=== PATIENT | female | born 1955 | race Caucasian/White ===

== ENCOUNTER 2021-10-07 18:50 | Inpatient (IN) ==
[2021-10-07] MEDS ORDERED: SODIUM CHLORIDE 0.9% 1000ML 1,000 ML IV STA (18:53)
[2021-10-07 19:11] LABS: Basophils # (auto) 0.04 K/uL (0-0.2); Basophils % (auto) 0.2 %; Eosinophils # (auto) 0.03 K/uL (0-0.50); Eosinophils % (auto) 0.2 %; Hematocrit (blood only) 23.4 % (34.1-44.9); Hemoglobin 7.9 g/dl (12.0-16.0); Immature Granulocytes # (auto) 0.14 K/uL (0.00-0.02); Immature Granulocytes % (auto) 0.9 %; Lymphocytes # (auto) 2.03 K/uL (1.2-3.4); Lymphocytes % (auto) 12.4 %; Mean Corpuscular Hemoglobin 30.2 pg (25.0-34.0); Mean Corpuscular Hgb Conc 33.8 g/dL (32.0-36.0); Mean Corpuscular Volume 89.3 fL (80.0-100.0); Mean Platelet Volume 10.3 fL (9.4-12.3); Monocytes # (auto) 0.99 K/uL (0.24-0.82); Neutrophils # (auto) 13.16 K/uL (1.4-6.5); Neutrophils % (auto) 80.3 %; Platelet Count 231 K/uL (130-400); RDW Standard Deviation 42.4 fL (36.4-46.3); Red Blood Count 2.62 M/uL (3.93-5.22); White Blood Count 16.39 K/ul (4.8-10.8)
--- NOTE | 2021-10-07 19:20 | Emergency Department Note ---
Impression & Plan Acute lower GI bleeding, Status post colonoscopy with polypectomy, Hypotension, Hypovolemic shock, Acute blood loss anemia ED Provider Note NAME: LUIZA PECK AGE: 66 SEX: F : 1955 ARRIVES VIA: Ambulance INFORMANT: Patient, EMS ED PROVIDER(S): Сергей Bob DO CHIEF COMPLAINT: GI bleeding HPI: The patient is a 66-year-old female who presented to the emergency department via ambulance for an evaluation of lower GI bleeding. The patient had a recent colonoscopy and removal of a polyp. She states that she started h aving lower GI bleeding this morning which progressed and worsened over the course of the last few hours. She is been passing clots. She is very dizzy and lightheaded and feels generalized weakness. She called her GI doctor and was referred to the emergency department for further evaluation. The patient states the bleeding has slowed down somewhat. She normally takes Coumadin because of a history of heart valve replacement. The patient states that she has been bridging with Lovenox and took the last dose of Lovenox as well as Coumadin this morning. She denies having any fever. She does complain of some pain. She denies having any nausea or vomiting. She denies having any chest pain. ROS: See above HPI for pertinent positives & negatives. A total of 10 systems reviewed and were otherwise negative. PAST MEDICAL HISTORY: See Below PAST SURGICAL HISTORY: See Below FAMILY HISTORY: See Below SOCIAL HISTORY: See Below HOME MEDICATIONS: See Below ALLERGIES: See Below VITALS: See Below PHYSICAL EXAMINATION: GENERAL: The patient is awake and alert. She appears very anxious. EYES: The conjunctivae are pale. The pupils are round and reactive. EARS, NOSE, MOUTH AND THROAT: The nose is without any evidence of any deformity. Mucous membranes are moist. Tongue is midline. NECK: The neck is nontender and supple. RESPIRATORY: Normal respiratory effort is noted there is no evidence of wheezing rhonchi or rales CARDIOVASCULAR: Regular rate and rhythm noted there no murmurs rubs or gallops normal S1 normal S2. GASTROINTESTINAL: Abdomen is soft and nondistended. There is no specific guarding or rigidity appreciated. MUSCULOSKELETAL/EXTREMITIES: There is no evidence of gross deformity full range of motion is noted in the hips and shoulders. SKIN: Trace pedal edema was noted bilaterally. Skin was cool and dry. NEUROLOGIC: Patient is awake alert and oriented x3. MEDICAL DECISION MAKING: The patient is a 66-year-old female who presented to the emergency department for evaluation of lower GI bleeding. The patient had a recent polypectomy. He does take oral anticoagulation for a history of valve replacement. The patient states that she restarted her Coumadin on the morning of presentation. The patient presented to the emergency department with hypotension after having multiple bowel movements with blood and clots. The patient's abdominal exam was not consistent with an acute abdomen. Patient was treated initially with IV fluids but then she was treated with blood products including fresh frozen plasma and packed red blood cells. Patient continued to have hypotension. A central line was placed for further aggressive resuscitation. I discussed patient's laboratory and radiographic studies with her. I also discussed her case with the on-call [facility] hospitalist. They have agreed to evaluate patient in the emergency department for further management and disposition. The patient was felt to be a candidate for ICU admission. The patient was reevaluated multiple times. Triage Nursing notes reviewed. Prior medical records reviewed Vital Signs: reviewed and remarkable for hypotension and tachycardia. Differential diagnosis: Diverticulosis, AVM, coagulopathy, colitis, inflammatory bowel disease, malignancy, Marita-Palacios tear, esophagitis, peptic ulcer disease, variceal bleed, gastritis, epistaxis, fissure, hemorrhoids, as well as other pathologies. ER treatment provided: See below Diagnostics interpreted by me: ECG: EKG was obtained in the emergency department. My interpretation is sinus rhythm at 83 bpm. There is no ectopy. Nonspecific ST segment abnormalities were noted. No previous tracing was available. Cardiac Monitoring: An order was placed for continuous cardiac monitoring. The monitor shows a rate of 105 bpm with sinus tachycardia. Laboratory studies: As stated above and show below. Imaging studies: See below Consultation(s): I discussed this case with Dr Bryant ED COURSE: Procedures: Femoral Central Venous Catheter Indication: Hemorrhagic shock Catheter Type: Triple-lumen Location: Right femoral vein Verbal consent was obtained after the risks and benefits were explained, including but not limited to intra-abdominal injury, vessel injury, bleeding, scarring, infection, pain, and bone/joint/nerve damage. At this time, the risks of the procedure are less than the risks of NOT performing the procedure. A time out was taken and the correct patient and site identified. The patient was placed in the supine position and the skin was prepped in the standard fashion with chlorhexidine and full sterile drapes applied. The proper landmarks were identified with ultrasound, anesthetized with 1% lidocaine without epinephrine, and the needle was inserted through the skin in the standard fashion. The needle was carefully advanced into blood vessel lumen with ultrasound guidance. The guidewire was placed uneventfully. The vessel is dilated and the catheter was placed. It was sutured into position. There was good blood return from all ports. The patient tolerated the procedure well and there were no complications. PDMP:reviewed and no issues Critical Care: I have personally spent greater than 65 minutes of critical care time in the direct management of this patient. This includes bedside care, interpretation of diagnostic studies, and testing, discussion with consultants, patient, and family members, and other required patient management activities. This 65 minutes is in excess of all separately billable procedures. Past Med/Surg History Medical History Hypertension Surgical History Heart valve replaced Social History Smoking Status: Never smoker Second Hand Exposure: No; Do You Dip or Chew Tobacco: No; Tobacco Cessation Education Requested by Patient: No Hx Alcohol Use: No Hx Substance Use: No Preferred Language: Armenian Communication Ability: Effective Farm Specialist Required: No Beliefs That Will Affect Care: None Current Living Situation: Spouse Other Information That Helps Us Care for You: No Feels Safe at Home: Yes Safety Concerns: Afraid for Self Allergies Allergies Allergy/AdvReac Type Severity Reaction Status Date / Time Sulfa (Sulfonamide Allergy Verified 12/02/20 10:51 Antibiotics) Home Meds Home Medications Medication Instructions Recorded Confirmed aspirin 81 mg tablet,delayed 81 mg PO DAILY 12/02/20 10/07/21 release (Adult Low Dose Aspirin) cholecalciferol (vitamin D3) 50 2,000 unit PO DAILY 10/07/21 10/07/21 mcg (2,000 unit) tablet (Vitamin D3) enoxaparin 60 mg/0.6 mL 60 mg subcut BID 10/07/21 10/07/21 subcutaneous syringe metoprolol tartrate 25 mg tablet 12.5 mg PO BID 10/07/21 10/07/21 multivitamin 1 tab PO DAILY 10/07/21 10/07/21 rosuvastatin 20 mg tablet 20 mg PO DAILY 10/07/21 10/07/21 warfarin 2.5 mg tablet 2.5 mg PO Q2D 10/07/21 10/07/21 warfarin 5 mg tablet 5 mg PO Q2D 10/07/21 10/07/21 Results & Data (ED) Vital Signs Vital Signs - 24 hr 10/07/21 18:52 10/07/21 18:53 10/07/21 19:09 Pulse Rate 88 88 91 H Pulse Rate from SpO2 Sensor Pulse Rhythm Regular Pulse Strength Normal Respiratory Rate 19 21 Respiratory Effort / Characteristics Non-Labored Spontaneous Respiratory Depth Normal Respiratory Pattern Regular Blood Pressure 93/59 L 100/59 L Blood Pressure Mean 70 72 Blood Pressure Position Lying Pulse Oximetry 98 98 98 Oxygen Delivery Method Room Air Room Air Sepsis Recent Fever Within 48 Hours No Sepsis New/Unexplained Change in Mental Status N/A Sepsis Action Taken by Nursing No Action Required 10/07/21 19:16 10/07/21 19:30 10/07/21 19:46 Pulse Rate 85 83 82 Pulse Rate from SpO2 Sensor Pulse Rhythm Pulse Strength Respiratory Rate 17 14 14 Respiratory Effort / Characteristics Respiratory Depth Respiratory Pattern Blood Pressure 81/57 L 93/54 L 110/67 Blood Pressure Mean 65 67 81 Blood Pressure Position Pulse Oximetry 97 100 100 Oxygen Delivery Method Sepsis Recent Fever Within 48 Hours Sepsis New/Unexplained Change in Mental Status Sepsis Action Taken by Nursing 10/07/21 19:54 10/07/21 20:11 10/07/21 20:11 Pulse Rate 97 H 80 Pulse Rate from SpO2 Sensor Pulse Rhythm Pulse Strength Respiratory Rate 16 23 Respiratory Effort / Characteristics Respiratory Depth Respiratory Pattern Blood Pressure 90/72 L 56/37 L Blood Pressure Mean 78 43 Blood Pressure Position Pulse Oximetry 84 L Oxygen Delivery Method Sepsis Recent Fever Within 48 Hours Sepsis New/Unexplained Change in Mental Status Sepsis Action Taken by Nursing 10/07/21 20:15 10/07/21 20:15 10/07/21 20:23 Pulse Rate 81 Pulse Rate from SpO2 Sensor 81 Pulse Rhythm Pulse Strength Respiratory Rate 20 Respiratory Effort / Characteristics Respiratory Depth Respiratory Pattern Blood Pressure 59/37 L 67/38 L Blood Pressure Mean 44 47 Blood Pressure Position Pulse Oximetry 100 Oxygen Delivery Method Sepsis Recent Fever Within 48 Hours Sepsis New/Unexplained Change in Mental Status Sepsis Action Taken by Nursing 10/07/21 20:23 Pulse Rate 83 Pulse Rate from SpO2 Sensor 83 Pulse Rhythm Pulse Strength Respiratory Rate 14 Respiratory Effort / Characteristics Respiratory Depth Respiratory Pattern Blood Pressure Blood Pressure Mean Blood Pressure Position Pulse Oximetry 98 Oxygen Delivery Method Sepsis Recent Fever Within 48 Hours Sepsis New/Unexplained Change in Mental Status Sepsis Action Taken by Care Home Medications Current Medication List: was personally reviewed by me Laboratory Data Attestation: I reviewed the patient's lab results. Result diagrams: 10/08/21 00:51 10/08/21 00:51 Lab Results 10/07/21 10/07/21 10/07/21 Range/Units 19:00 19:00 19:00 WBC 16.39 H (4.8-10.8) K/ul RBC 2.62 L (3.93-5.22) M/uL Hgb 7.9 L (12.0-16.0) g/dl POC Hgb (12.0-16.0) g/dl Hct 23.4 L (34.1-44.9) % POC Hct (37-47) % MCV 89.3 (80.0-100.0) fL MCH 30.2 (25.0-34.0) pg MCHC 33.8 (32.0-36.0) g/dL RDW Std Deviation 42.4 (36.4-46.3) fL RDW Coeff of Kristy 13.0 (11.5-14.5) % Plt Count 231 (130-400) K/uL MPV 10.3 (9.4-12.3) fL Immature Gran % (Auto) 0.9 % Neut % (Auto) 80.3 % Lymph % (Auto) 12.4 % [place] % (Auto) 6.0 % Eos % (Auto) 0.2 % Baso % (Auto) 0.2 % Neut # (Auto) 13.16 H (1.4-6.5) K/uL Lymph # (Auto) 2.03 (1.2-3.4) K/uL [place] # (Auto) 0.99 H (0.24-0.82) K/uL Eos # (Auto) 0.03 (0-0.50) K/uL Baso # (Auto) 0.04 (0-0.2) K/uL Immature Gran # (Auto) 0.14 H (0.00-0.02) K/uL Ovalocytes 1+ PT 13.1 H (9.0-12.0) Seconds INR 1.2 H (0.9-1.1) APTT 28.9 (21.0-31.0) Seconds PTT Ratio 1.1 POC Sodium (135-144) mmol/L Sodium 133 L (136-145) mmol/L POC Potassium (3.3-5.0) mmol/L Potassium 3.4 L (3.5-5.1) mmol/L POC Chloride (101-112) mmol/L Chloride 103 (98-107) mmol/L Carbon Dioxide 21 (21-32) mmol/L POC Total CO2 (24-31) mmol/L Anion Gap 9 (3-11) POC Anion Gap (16-25) mmol/L POC BUN (7-18) mg/dl BUN 12 (6-23) mg/dl Creatinine 0.69 (0.6-1.2) mg/dl POC Creatinine (0.6-1.3) mg/dl Est Cr Clr Drug Dosing 83.2 ml/min Est GFR ( Amer) 106.6 ml/min Est GFR (Non-Af Amer) 92.0 ml/min BUN/Creatinine Ratio 17.4 (10-20) Glucose 180 H (70-99(Fasting)) mg/dl POC Glucose (other) (70-99) mg/dl Calcium 7.9 L (8.5-10.1) mg/dl POC Ioniz Calcium Emy (1.12-1.32) mmol/l Magnesium 1.6 L (1.7-2.4) mg/dl Total Bilirubin 0.4 (0.2-1.0) mg/dl AST 20 (13-39) U/L ALT 18 (7-52) U/L Alkaline Phosphatase 43 (34-104) U/L Troponin I High Sens 4.4 (0-14) pg/ml Total Protein 5.0 L (6.0-8.3) gm/dl Albumin 3.1 L (3.4-5.0) gm/dl Globulin 1.9 L (2.5-4.0) gm/dl Albumin/Globulin Ratio 1.6 (0.9-2) Lipase 27 (11-82) U/L SARS-CoV-2, RNA, NAAT (NEGATIVE) Blood Type Blood Type Recheck Antibody Screen Crossmatch 10/07/21 10/07/21 10/07/21 Range/Units 19:03 19:06 19:08 WBC (4.8-10.8) K/ul RBC (3.93-5.22) M/uL Hgb (12.0-16.0) g/dl POC Hgb 8.5 L (12.0-16.0) g/dl Hct (34.1-44.9) % POC Hct 25 L (37-47) % MCV (80.0-100.0) fL MCH (25.0-34.0) pg MCHC (32.0-36.0) g/dL RDW Std Deviation (36.4-46.3) fL RDW Coeff of Kristy (11.5-14.5) % Plt Count (130-400) K/uL MPV (9.4-12.3) fL Immature Gran % (Auto) % Neut % (Auto) % Lymph % (Auto) % [place] % (Auto) % Eos % (Auto) % Baso % (Auto) % Neut # (Auto) (1.4-6.5) K/uL Lymph # (Auto) (1.2-3.4) K/uL [place] # (Auto) (0.24-0.82) K/uL Eos # (Auto) (0-0.50) K/uL Baso # (Auto) (0-0.2) K/uL Immature Gran # (Auto) (0.00-0.02) K/uL Ovalocytes PT (9.0-12.0) Seconds INR (0.9-1.1) APTT (21.0-31.0) Seconds PTT Ratio POC Sodium 134 L (135-144) mmol/L Sodium (136-145) mmol/L POC Potassium 3.3 (3.3-5.0) mmol/L Potassium (3.5-5.1) mmol/L POC Chloride 99 L (101-112) mmol/L Chloride (98-107) mmol/L Carbon Dioxide (21-32) mmol/L POC Total CO2 20 L (24-31) mmol/L Anion Gap (3-11) POC Anion Gap 19.0 (16-25) mmol/L POC BUN 9 (7-18) mg/dl BUN (6-23) mg/dl Creatinine (0.6-1.2) mg/dl POC Creatinine 0.7 (0.6-1.3) mg/dl Est Cr Clr Drug Dosing ml/min Est GFR ( Amer) ml/min Est GFR (Non-Af Amer) ml/min BUN/Creatinine Ratio (10-20) Glucose (70-99(Fasting)) mg/dl POC Glucose (other) 184 H (70-99) mg/dl Calcium (8.5-10.1) mg/dl POC Ioniz Calcium Emy 1.13 (1.12-1.32) mmol/l Magnesium (1.7-2.4) mg/dl Total Bilirubin (0.2-1.0) mg/dl AST (13-39) U/L ALT (7-52) U/L Alkaline Phosphatase (34-104) U/L Troponin I High Sens (0-14) pg/ml Total Protein (6.0-8.3) gm/dl Albumin (3.4-5.0) gm/dl Globulin (2.5-4.0) gm/dl Albumin/Globulin Ratio (0.9-2) Lipase (11-82) U/L SARS-CoV-2, RNA, NAAT NEGATIVE (NEGATIVE) Blood Type B Positive Blood Type Recheck Antibody Screen NEGATIVE Crossmatch See Detail 10/07/21 Range/Units 20:05 WBC (4.8-10.8) K/ul RBC (3.93-5.22) M/uL Hgb (12.0-16.0) g/dl POC Hgb (12.0-16.0) g/dl Hct (34.1-44.9) % POC Hct (37-47) % MCV (80.0-100.0) fL MCH (25.0-34.0) pg MCHC (32.0-36.0) g/dL RDW Std Deviation (36.4-46.3) fL RDW Coeff of Kristy (11.5-14.5) % Plt Count (130-400) K/uL MPV (9.4-12.3) fL Immature Gran % (Auto) % Neut % (Auto) % Lymph % (Auto) % [place] % (Auto) % Eos % (Auto) % Baso % (Auto) % Neut # (Auto) (1.4-6.5) K/uL Lymph # (Auto) (1.2-3.4) K/uL [place] # (Auto) (0.24-0.82) K/uL Eos # (Auto) (0-0.50) K/uL Baso # (Auto) (0-0.2) K/uL Immature Gran # (Auto) (0.00-0.02) K/uL Ovalocytes PT (9.0-12.0) Seconds INR (0.9-1.1) APTT (21.0-31.0) Seconds PTT Ratio POC Sodium (135-144) mmol/L Sodium (136-145) mmol/L POC Potassium (3.3-5.0) mmol/L Potassium (3.5-5.1) mmol/L POC Chloride (101-112) mmol/L Chloride (98-107) mmol/L Carbon Dioxide (21-32) mmol/L POC Total CO2 (24-31) mmol/L Anion Gap (3-11) POC Anion Gap (16-25) mmol/L POC BUN (7-18) mg/dl BUN (6-23) mg/dl Creatinine (0.6-1.2) mg/dl POC Creatinine (0.6-1.3) mg/dl Est Cr Clr Drug Dosing ml/min Est GFR ( Amer) ml/min Est GFR (Non-Af Amer) ml/min BUN/Creatinine Ratio (10-20) Glucose (70-99(Fasting)) mg/dl POC Glucose (other) (70-99) mg/dl Calcium (8.5-10.1) mg/dl POC Ioniz Calcium Emy (1.12-1.32) mmol/l Magnesium (1.7-2.4) mg/dl Total Bilirubin (0.2-1.0) mg/dl AST (13-39) U/L ALT (7-52) U/L Alkaline Phosphatase (34-104) U/L Troponin I High Sens (0-14) pg/ml Total Protein (6.0-8.3) gm/dl Albumin (3.4-5.0) gm/dl Globulin (2.5-4.0) gm/dl Albumin/Globulin Ratio (0.9-2) Lipase (11-82) U/L SARS-CoV-2, RNA, NAAT (NEGATIVE) Blood Type Blood Type Recheck B Positive Antibody Screen Crossmatch Administered Medications Discontinued Medications Calcium Chloride (Calcium Chloride 10% 10 Ml Syr) Confirm Administered Dose 1,000 mg IV .STK-MED ONE Stop: 10/08/21 02:09 Last Admin: 10/08/21 02:29 Dose: Not Given Documented By: ISSA Sodium Chloride (Nss 1000ml) 1,000 mls @ 999 mls/hr IV .Q1H1M STA Stop: 10/07/21 19:53 Last Infusion: 10/07/21 20:08 Dose: 0 mls/hr Documented By: Admin: 10/07/21 19:06 Dose: 999 mls/hr Documented By: MARIE Sodium Chloride (Nss 1000ml) 1,000 mls @ 999 mls/hr IV .Q1H1M ONE Stop: 10/07/21 21:18 Last Infusion: 10/07/21 21:21 Dose: 0 mls/hr Documented By: Admin: 10/07/21 20:20 Dose: 999 mls/hr Documented By: PAPITO Pantoprazole Sodium 40 mg/ (Syringe) 10 mls @ 5 mls/min IV NOW ONE Stop: 10/07/21 21:01 Last Admin: 10/07/21 22:12 Dose: 5 mls/min Documented By: PAPITO Pantoprazole Sodium 40 mg/ (Dextrose) 100 mls @ 20 mls/hr IV Q5H ADRIANA Stop: 11/06/21 20:59 Last Infusion: 10/08/21 02:30 Dose: 0 mg/hr, 0 mls/hr Documented By: Admin: 10/07/21 21:30 Dose: 8 mg/hr, 20 mls/hr Documented By: ISSA Potassium Chloride (K Zach / Wtr) 10 meq in 100 mls @ 100 mls/hr IV Q1H ADRIANA; Protocol Stop: 10/07/21 22:59 Last Admin: 10/08/21 00:26 Dose: Not Given Documented By: Admin: 10/08/21 00:25 Dose: Not Given Documented By: ISSA Promethazine HCl 12.5 mg/ (Sodium Chloride) 50.5 mls @ 202 mls/hr IV Q6H PRN PRN Reason: Nausea And Vomiting Stop: 11/06/21 21:14 Last Infusion: 10/07/21 21:45 Dose: 0 mls/hr Documented By: Admin: 10/07/21 21:30 Dose: 202 mls/hr Documented By: VK Lactated Ringer's (Lr) 1,000 mls @ 500 mls/hr IV .Q2H ONE Stop: 10/07/21 23:22 Last Infusion: 10/08/21 01:27 Dose: 0 mls/hr Documented By: Admin: 10/07/21 23:27 Dose: 500 mls/hr Documented By: VK Parenteral Electrolytes (Normosol-R) 1,000 mls @ 999 mls/hr IV .Q1H1M ONE Stop: 10/08/21 01:20 Last Infusion: 10/08/21 01:47 Dose: 0 mls/hr Documented By: Admin: 10/08/21 00:46 Dose: 999 mls/hr Documented By: JOSE Potassium Chloride (K Zach / Wtr) 10 meq in 100 mls @ 100 mls/hr IV Q1H ADRIANA Stop: 10/08/21 02:20 Last Admin: 10/08/21 02:45 Dose: Not Given Documented By: Admin: 10/08/21 02:43 Dose: Not Given Documented By: VK Albumin Human (Albumin 5%) 250 mls @ 500 mls/hr IV ONE ONE Stop: 10/08/21 01:02 Last Infusion: 10/08/21 01:12 Dose: 0 mls/hr Documented By: Admin: 10/08/21 00:42 Dose: 500 mls/hr Documented By: JOSE Lactated Ringer's (Lr) 1,000 mls @ 250 mls/hr IV .Q4H ADRIANA Stop: 11/07/21 01:29 Last Admin: 10/08/21 00:47 Dose: 250 mls/hr Documented By: JOSE Norepinephrine Bitartrate (Levophed/D5w) 4 mg in 250 mls @ 13.969 mls/hr IV .[id number] ADRIANA; Protocol Stop: 11/07/21 00:44 Last Admin: 10/08/21 00:46 Dose: 0.05 mcg/kg/min, 14 mls/hr Documented By: JOSE Co-signed By: REILLY Phytonadione 5 mg/ Dextrose 50.5 mls @ 101 mls/hr IV ONE ONE Stop: 10/08/21 01:11 Last Infusion: 10/08/21 01:12 Dose: 0 mls/hr Documented By: Admin: 10/08/21 00:42 Dose: 101 mls/hr Documented By: ISSA Albumin Human (Albumin 5%) 250 mls @ 500 mls/hr IV ONE ONE Stop: 10/08/21 01:41 Last Infusion: 10/08/21 02:00 Dose: 0 mls/hr Documented By: Admin: 10/08/21 01:30 Dose: 500 mls/hr Documented By: ISSA Calcium Chloride 1,000 mg/ (Dextrose) 60 mls @ 240 mls/hr IV NOW STA Stop: 10/08/21 02:20 Last Infusion: 10/08/21 02:44 Dose: 0 mls/hr Documented By: Admin: 10/08/21 02:29 Dose: 240 mls/hr Documented By: ISSA Norepinephrine Bitartrate (Norepinephrine/D5w 4 Mg/250 Ml) Confirm Administered Dose 4 mg IV .STK-MED ONE Stop: 10/08/21 00:33 Last Admin: 10/08/21 00:40 Dose: 4 mg Documented By: JOSE Ondansetron HCl (Ondansetron Inj 2 Mg/Ml 2 Ml Vial) 4 mg IV NOW STA Stop: 10/07/21 19:54 Last Admin: 10/07/21 19:57 Dose: 4 mg Documented By: OA Imaging Data Radiologist's Impression: Chest X-Ray 10/07/21 18:53 XR chest 1V portable CLINICAL HISTORY: Atypical chest pain. COMPARISON STUDY: No previous studies for comparison. FINDINGS: There are median sternotomy wires. S-shaped scoliosis of the thoracolumbar spine is partially imaged. Lung volumes are normal. Lungs are clear. There is no pneumothorax or pleural effusion. Cardiac size is normal. Mediastinal contours are normal. There is no evidence for pulmonary edema. IMPRESSION: No acute cardiopulmonary findings. ACT 112: Negative or not required by law. Electronically signed by: Milton Lemon M.D. 10/07/2021 7:29 PM KUB X-Ray 10/07/21 18:53 KUB CLINICAL HISTORY: GI bleed. COMPARISON STUDY: None. FINDINGS: There is a paucity of bowel gas. Although a nonspecific pattern, no convincing evidence for a bowel obstruction. No urinary calculi identified. No free air was identified on upright chest radiograph. IMPRESSION: Paucity of bowel gas but no convincing evidence for a bowel obstruction. ACT 112: Negative or not required by law. Electronically signed by: Milton Lemon M.D. 10/07/2021 7:30 PM Discharge Plan Visit Data Chief Complaint: Weakness ED Provider: Сергей Bob Discharge Problem: Acute lower GI bleeding, Status post colonoscopy with polypectomy, Hypotension, Hypovolemic shock, Acute blood loss anemia Patient Disposition: Admitted As Inpatient Discharge Instructions Interventions: ED Discharge Assessment Last Done: 10/07/21 21:33 : Hypotension Qualifiers: Hypotension type: unspecified hypotension type Qualified Code(s): I95.9 - Hypotension, unspecified
[2021-10-07 19:24] LABS: INR 1.2 (0.9-1.1); Partial Thromboplastin Ratio 1.1; Partial Thromboplastin Time 28.9 Seconds (21.0-31.0); Prothrombin Time 13.1 Seconds (9.0-12.0)
[2021-10-07 19:24] LABS: iSTAT Creatinine 0.7 mg/dl (0.6-1.3); iSTAT Hemoglobin 8.5 g/dl (12.0-16.0); iSTAT Ionized Calcium 1.13 mmol/l (1.12-1.32); iSTAT Potassium 3.3 mmol/L (3.3-5.0)
[2021-10-07 19:29] LABS: Ovalocytes 1+
--- NOTE | 2021-10-07 19:30 | XRay Report ---
XR chest 1V portable CLINICAL HISTORY: Atypical chest pain. COMPARISON STUDY: No previous studies for comparison. FINDINGS: There are median sternotomy wires. S-shaped scoliosis of the thoracolumbar spine is partial ly imaged. Lung volumes are normal. Lungs are clear. There is no pneumothorax or pleural effusion. Ca rdiac size is normal. Mediastinal contours are normal. There is no evidence for pulmonary edema. IMPRESSION: No acute cardiopulmonary findings. ACT 112: Negative or not required by law. Electronically signed by: Milton Lemon M.D. 10/07/2021 7:29 PM
--- NOTE | 2021-10-07 19:31 | XRay Report ---
KUB CLINICAL HISTORY: GI bleed. COMPARISON STUDY: None. FINDINGS: There is a paucity of bowel gas. Although a nonspecific pattern, no convincing evidence for a bowel obstruction. No urinary calculi identified. No free air was identified on upright chest radi ograph. IMPRESSION: Paucity of bowel gas but no convincing evidence for a bowel obstruction. ACT 112: Negative or not required by law. Electronically signed by: Milton Lemon M.D. 10/07/2021 7:30 PM
[2021-10-07] MEDS ORDERED: SODIUM CHLORIDE 0.9% 250 ML IV PRN ×2 (19:38→20:58)
[2021-10-07 19:39] LABS: Troponin I High Sensitivity 4.4 pg/ml (0-14)
[2021-10-07 19:40] LABS: Albumin Globulin Ratio 1.6 (0.9-2); Albumin Level 3.1 gm/dl (3.4-5.0); BUN Creatinine Ratio 17.4 (10-20); Bilirubin,Total 0.4 mg/dl (0.2-1.0); Calcium 7.9 mg/dl (8.5-10.1); Creatinine Clr Calc Pharmacy 83.2 ml/min; Est GFR (African American) 106.6 ml/min; Globulin 1.9 gm/dl (2.5-4.0); Potassium 3.4 mmol/L (3.5-5.1)
[2021-10-07] MEDS ORDERED: ONDANSETRON INJ 2 MG/ML 2 ML VIAL IV STA (19:53)
[2021-10-07] MEDS ORDERED: SODIUM CHLORIDE 0.9% 1000ML 1,000 ML IV ONE (20:18)
--- NOTE | 2021-10-07 20:47 | History & Physical Report ---
Date of Service October 07, 2021 Assessment & Plan (1) Bright red rectal bleeding: Plan: Status post colonoscopy with removal of 2 polyps on 10/06/2021 A 40 mm polyp in ascending colon and 8 mm in descending colon Received Lovenox 60 mg subcu yesterday and has been off Coumadin Bright red rectal bleeding 3-4 episodes with hypotension Will start intravenous Protonix drip Hemoglobin 7.9 Give 2 units of blood transfusion And type and hold 2 more unit GI service will be consulted-D/W vocational rehabilitation technician psycian H&H every 4 hours (2) Hypotension: Plan: Likely secondary to blood loss Has been receiving bolus of normal saline Will start blood transfusion as soon as available We will monitor the patient in telemetry unit (3) Status post colonoscopy with polypectomy: Plan: As above (4) S/P aortic valve replacement: Plan: History of aortic valve replacement with mechanical valve due to bicuspid aortic valve Has been on Coumadin Recently bridged with Lovenox for colonoscopy Received Lovenox last evening Hypertension Has hypotension right now Hold any beta-leonora or blood pressure medicine Hyperlipidemia Hold any statin DVT prophylaxis SCDs CODE STATUS Full History of Present Illness Chief Complaint: Bright red rectal bleed with nausea and vomiting since around 1 PM today Primary Care Provider: Ramakrishna Correa PA-C She is a 66-year-old female with significant past medical history of mechanical aortic valve replacement for bicuspid aortic valve and has been on Coumadin and aspirin. She underwent colonoscopy with removal of 2 polyps yesterday. She was feeling epigastric discomfort around 1 PM and started to have nausea and vomiting quite a few times. She has had bloody bowel movement about 3 times since then and she has been pale following that and feeling very dizzy and unsteady on feet. She denies any chest pain and/or palpitation or any shortness of breath. She did not have any abdominal distention and no fever and or chills. She was noted to be hypotensive in the emergency room with a hemoglobin of 7.9. She will be admitted to telemetry unit and she will have blood transfusion as soon as it is available. Allergies Allergy/AdvReac Type Severity Reaction Status Date / Time Sulfa (Sulfonamide Allergy Verified 12/02/20 10:51 Antibiotics) Home Medications Medication Instructions Recorded Confirmed Type aspirin 81 mg tablet,delayed 81 mg PO DAILY 12/02/20 10/07/21 History release (Adult Low Dose Aspirin) cholecalciferol (vitamin D3) 50 2,000 unit PO DAILY 10/07/21 10/07/21 History mcg (2,000 unit) tablet (Vitamin D3) enoxaparin 60 mg/0.6 mL 60 mg subcut BID 10/07/21 10/07/21 History subcutaneous syringe metoprolol tartrate 25 mg tablet 12.5 mg PO BID 10/07/21 10/07/21 History multivitamin 1 tab PO DAILY 10/07/21 10/07/21 History rosuvastatin 20 mg tablet 20 mg PO DAILY 10/07/21 10/07/21 History warfarin 2.5 mg tablet 2.5 mg PO Q2D 10/07/21 10/07/21 History warfarin 5 mg tablet 5 mg PO Q2D 10/07/21 10/07/21 History Past Med/Surg History Medical History Hypertension Surgical History Heart valve replaced Social History Smoking Status: Never smoker Preferred Language: Icelandic Feels Safe at Home: Yes Review of Systems Review of Systems: All systems reviewed and are unremarkable except as noted below Gastrointestinal: Epigastric discomfort with nausea and vomiting. Bright red blood per rectum Neurologic: Generally weak and lethargic and dizzy with standing and movement Physical Exam Physical Exam: Lying in bed very pale without any other acute distress Constitutional: well developed, well nourished, + ill appearing and + obese Eyes: PERRL, conjunctivae normal, anicteric sclerae ENMT: external ear and nose normal, oropharynx normal Respiratory: no respiratory distress Auscultation: lungs clear to auscultation bilaterally Cardiovascular: Rate/Rhythm: regular rate and regular rhythm; not tachycardic Heart Sounds: normal S1, normal S2 and + murmur (2/6 ESM over precordium) Extremities: + edema (Trace edema bilaterally) Gastrointestinal (Abdomen): Inspection/Auscultation: normal bowel sounds; abdomen not distended Percussion/Palpation: + abdomen tender (Minimally tender in the epigastrium) and abdomen soft Musculoskeletal: No acute arthritis in any joint Neurologic: Alert and awake . Very lethargic Results & Data Results & Data ([facility]) Vital Signs (Past 12 Hours) Vital Signs Pulse Resp BP Pulse Ox O2 Del Method 10/07/21 20:28 80 14 67/38 L 100 10/07/21 19:54 97 H 16 90/72 L 10/07/21 19:46 82 14 110/67 100 10/07/21 19:30 83 14 93/54 L 100 10/07/21 19:16 85 17 81/57 L 97 10/07/21 19:09 91 H 21 100/59 L 98 10/07/21 18:53 88 98 Room Air 10/07/21 18:52 88 19 93/59 L 98 Room Air Laboratory Results Short CBC 10/07/21 Range/Units 19:00 WBC 16.39 H (4.8-10.8) K/ul Hgb 7.9 L (12.0-16.0) g/dl Hct 23.4 L (34.1-44.9) % Plt Count 231 (130-400) K/uL BMP 10/07/21 19:00 Sodium 133 L Potassium 3.4 L Chloride 103 Carbon Dioxide 21 BUN 12 Creatinine 0.69 Glucose 180 H Calcium 7.9 L Liver Function 10/07/21 Range/Units 19:00 Total Bilirubin 0.4 (0.2-1.0) mg/dl AST 20 (13-39) U/L ALT 18 (7-52) U/L Alkaline Phosphatase 43 (34-104) U/L Albumin 3.1 L (3.4-5.0) gm/dl Medications Administered Current Inpatient Medications Sodium Chloride (Nss) 250 mls @ 15 mls/hr IV .[id number] PRN PRN Reason: For Transfusion Stop: 10/08/21 05:38 Sodium Chloride (Nss 1000ml) 1,000 mls @ 999 mls/hr IV .[id number] ONE Stop: 10/07/21 21:18 Last Admin: 10/07/21 20:20 Dose: 999 mls/hr Code Status & VTE Plan VTE Prophylaxis Plan VTE Prophylaxis will be ordered: Yes
[2021-10-07 20:58] LABS: Magnesium 1.6 mg/dl (1.7-2.4)
[2021-10-07] MEDS ORDERED: PANTOprazole 40 MG in DEXTROSE 5% 100 ML IV SCH (21:00)
[2021-10-07] MEDS ORDERED: PANTOprazole 40 MG in SYRINGE 0 ML IV ONE (21:00)
[2021-10-07] MEDS ORDERED: ONDANSETRON INJ 2 MG/ML 2 ML VIAL IV PRN ×2 (21:13→23:14)
[2021-10-07] MEDS ORDERED: PROMETHAZINE HCL 12.5 MG in SODIUM CHLORIDE 0.9% 50 ML IV PRN (21:15)
[2021-10-07] MEDS ORDERED: LACTATED RINGER'S 1,000 ML IV ONE (21:23)
[2021-10-07 22:12] LABS: Hematocrit (blood only) 28.7 % (34.1-44.9); Hemoglobin 9.4 g/dl (12.0-16.0)
[2021-10-07] MEDS ORDERED: ACETAMINOPHEN 325 MG TAB PO PRN (23:14)
[2021-10-07] MEDS ORDERED: POTASSIUM CHLORIDE CRTAB 20 MEQ TABCR PO STA (23:32)
[2021-10-08] MEDS ORDERED: NORMOSOL-R 1,000 ML IV ONE (00:20)
[2021-10-08] MEDS: POTASSIUM CHLORIDE / WTR 10 MEQ/100 ML PLCT IV SCH ×4 (00:25→02:45)
[2021-10-08] MEDS ORDERED: NOREPINEPHRINE/D5W 4 MG/250 ML IV ONE (00:32)
[2021-10-08] MEDS ORDERED: ALBUMIN 5% 250 ML IV ONE ×2 (00:33→01:12)
[2021-10-08] MEDS ORDERED: SODIUM CHLORIDE 0.9% 250 ML IV PRN (00:34)
--- NOTE | 2021-10-08 00:34 | Communication Note ---
Date of Service: October 08, 2021 0020 AM Notified by RN of patient SBP 50s. Sp post 3 units PRBC transfusion Patient lethargic. Still with LGIB soaking sheets. 10/07 labs Hemoglobin 9.4 from 7.9 Lactic acid 5.4 AP Hypovolemic/hemorrhagic shock secondary to GI bleed ICU transfer for pressor support Continue IVF resuscitation and as needed transfusion Dr. Juan later on updated by ICU provider of developments. [facility] transfer for further management recommended. Patient kindly accepted for transfer by Dr. Tanmay Reid ([facility] microbiology teacher on- call).
[2021-10-08] MEDS ORDERED: STAT IV Infusion **Titration per Protocol STA (00:36)
[2021-10-08] MEDS ORDERED: ICU PROTOCOL FOR HYPERGLYCEMIA PRN (00:39)
[2021-10-08] MEDS ORDERED: PHYTONADIONE 5 MG in DEXTROSE 5% 50 ML IV ONE (00:42)
[2021-10-08] MEDS ORDERED: NOREPINEPHRINE/D5W 4 MG/250 ML PLCT IV SCH (00:45)
[2021-10-08] MEDS ORDERED: LACTATED RINGER'S 1,000 ML IV ONE (01:00)
--- NOTE | 2021-10-08 01:28 | Critical Care Consultation ---
Date of Consultation October 08, 2021 Assessment & Plan (1) Hypovolemic shock: Reason Critically Ill: 66-year-old female presents to the ICU with hypovolemic shock secondary to acute lower GI bleed, requiring massive transfusion and vasopressor support. Neuro - [facility] ICU: Negative Cardiac - Hypovolemic shocksecondary to GI bleed. Continue with transfusions as described below. Continue with volume support. Levophed drip for maps greater than 65. Hold antihypertensives. Hold further anticoagulation. Continue monitoring in ICU pending transfer. Respiratory - Lungs clear to auscultation, no history of pulmonary disease. Currently on room air. Continuous monitoring pulse ox. Supplemental oxygen if needed GI - N.p.o. Acute GI bleedsecondary to recent colonoscopy with removal of 2 polyps as described in HPI. Patient did continue to take Lovenox this morning. Per conversation with GI, patient would be poor candidate for emergent colonoscopy and recommended transfer to tertiary center which is pending. Continue with PPI drip. Continue with medical management and mass transfusion protocol pending transfer. RENAL/LYTES - Creatinine within normal limits, monitor routine BMP - Strict I's and O's ENDO - No history of diabetes or thyroid disease HEME - Previously transfused 2 units RBCs 1 unit FFP. Plan to give additional 4 units RBCs, 2 FFP, 2 platelets per massive transfusion protocol. Hold further anticoagulation/antiplatelet therapy use. Continue to trend H&H every 4, repeat INR and check fibrinogen ID - No indication for infectious process at this time LINES/IV ACCESS - CVL right femoral, peripheral IV x2 DVT PROPHYLAXIS - SCDs, hold anticoagulation I have personally spent 70 minutes of critical care time in the direct management of this patient. This is a life/limb threatening event. This includes time spent evaluating patient, direct bedside care, chart review, placing orders, interpretation of diagnostic studies, discussion with consultants, patient, and family members, as well as other required patient management activities. This time is exclusive of all separately billable procedures, and teaching time and separate from and in addition to any other critical care service time. Thank you for allowing us to participate in the care of this patient. Please refer to my attending physician's documentation for any further recommendations. (2) S/P aortic valve replacement: (3) Status post colonoscopy with polypectomy: (4) Bright red rectal bleeding: (5) Acute GI bleeding: (6) Acute blood loss anemia: History of Present Illness Attending Physician: Jill Bryant MD History of Present Illness Patient is a 66-year-old female with past medical history of aortic valve replacement and recently underwent colonoscopy with removal of 2 polyps on 10/06/2021. She had a 40 mm polyp in the ascending colon and 8 mm in the descending colon. Patient was on Lovenox and Coumadin prior to this and she did take doses this morning. Patient began to feel epigastric comfort around 1 PM with nausea and vomiting. She began to have bloody bowel movements and became pale and dizzy. She presented to the emergency department she was found to be hypotensive and anemic with hemoglobin of 7 and was transfused 2 units RBCs and 1 unit FFP. Patient was then admitted to PCU for further management. This evening I was notified by the primary team that the patient had become hypotensive. On assessment patient had significant amount of bright red bleeding with clots. She is undergoing massive transfusion protocol and is currently on Levophed drip. I did speak with [facility] gastroenterology and unfortunately patient would be poor candidate for emergent colonoscopy given the location of the polyp in the ascending colon and the amount of bleeding. Transfer was recommended. I then spoke with Dr. Reid, moisture conditioner operator, at [facility] who has agreed to accept the patient. We will continue with stabilizing the patient and plan to transfer via [facility]. Currently patient is alert and oriented although she is quite pale and lethargic. Degip-fi-oipo hematocrit was less than 15 with unregistered hemoglobin and she does have labs pending. She does report feeling lightheaded and some abdominal pain. She continues to have gross amount of bright red bowel movements with clots. She denies any chest pain or shortness of breath, abdominal pain, nausea, recent illness or fevers or congestion, cough. Patient to remain in ICU for further management pending transfer to tertiary center. Allergies Allergy/AdvReac Type Severity Reaction Status Date / Time Sulfa (Sulfonamide Allergy Verified 12/02/20 10:51 Antibiotics) Home Medications Medication Instructions Recorded Confirmed Type aspirin 81 mg tablet,delayed 81 mg PO DAILY 12/02/20 10/07/21 History release (Adult Low Dose Aspirin) cholecalciferol (vitamin D3) 50 2,000 unit PO DAILY 10/07/21 10/07/21 History mcg (2,000 unit) tablet (Vitamin D3) enoxaparin 60 mg/0.6 mL 60 mg subcut BID 10/07/21 10/07/21 History subcutaneous syringe metoprolol tartrate 25 mg tablet 12.5 mg PO BID 10/07/21 10/07/21 History multivitamin 1 tab PO DAILY 10/07/21 10/07/21 History rosuvastatin 20 mg tablet 20 mg PO DAILY 10/07/21 10/07/21 History warfarin 2.5 mg tablet 2.5 mg PO Q2D 10/07/21 10/07/21 History warfarin 5 mg tablet 5 mg PO Q2D 10/07/21 10/07/21 History Patient History Medical History Hypertension Surgical History Heart valve replaced Social History Smoking Status: Never smoker Second Hand Exposure: No; Do You Dip or Chew Tobacco: No; Tobacco Cessation Education Requested by Patient: No Hx Alcohol Use: No Hx Substance Use: No Preferred Language: Mongolian Communication Ability: Effective Financial Reporting Director Required: No Beliefs That Will Affect Care: None Current Living Situation: Spouse Other Information That Helps Us Care for You: No Feels Safe at Home: Yes Safety Concerns: Afraid for Self Review of Systems Review of Systems: All systems reviewed & are unremarkable except as noted in HPI & below Physical Exam Constitutional: Pale, lethargic Eyes: PERRL, conjunctivae normal, anicteric sclerae ENMT: external ear and nose normal, oropharynx normal Neck: trachea midline, no thyromegaly Respiratory: normal respiratory effort, lungs clear to auscultation Cardiovascular: Normal sinus rhythm, click with auscultation, no peripheral edema, Gastrointestinal (Abdomen): normal bowel sounds, soft, nontender, no hepa tosplenomegaly Gross amount of bright red melena with clots present Skin: Pale, cool to touch Neurologic: PERRL, EOMI, accommodation nl, no face palsy, no dysarthria Psychiatric: A+Ox3, euthymic affect Results & Data Results & Data ([facility]) Vital Signs (Past 12 Hours) Vital Signs Temp Pulse Pulse Resp BP BP Pulse Ox 10/08/21 00:00 36.6 C 10/07/21 22:15 80 17 98 10/07/21 22:02 92 H 16 100 10/07/21 22:02 81/47 L 10/07/21 22:00 90 17 100 10/07/21 21:51 90/57 L 10/07/21 21:51 91 H 17 100 10/07/21 21:46 93 H 19 100 10/07/21 21:46 44/29 L 10/07/21 21:45 93 H 16 100 10/07/21 21:31 85 17 100 10/07/21 21:31 90/59 L 10/07/21 21:30 85 16 100 10/07/21 21:16 81/57 L 10/07/21 21:16 87 16 10/07/21 21:15 86 18 10/07/21 21:12 91/45 L 10/07/21 21:12 86 20 10/07/21 21:01 84 13 100 10/07/21 21:01 67/49 L 10/07/21 21:00 84 17 99 10/07/21 20:57 79/50 L 10/07/21 20:57 83 16 100 10/07/21 20:45 82 25 H 99 10/07/21 20:45 79/55 L 10/07/21 20:35 86 14 91 10/07/21 20:35 49/39 L 10/07/21 20:30 83 14 99 10/07/21 20:30 55/44 L 10/07/21 20:23 83 14 98 10/07/21 20:23 67/38 L 10/07/21 20:15 81 20 100 10/07/21 20:15 59/37 L 10/07/21 20:11 80 23 84 L 10/07/21 20:11 56/37 L 10/07/21 23:12 101 H 10/07/21 23:51 36.6 C 98 H 16 95/50 L 100 10/07/21 23:45 36.6 C 99 H 16 73/54 L 99 10/07/21 23:35 36.6 C 95 H 16 87/51 L 99 10/07/21 22:29 36.6 C 107 H 18 85/45 L 99 10/07/21 23:17 36.6 C 101 H 16 91/56 L 99 10/07/21 23:12 36.6 C 106 H 20 85/45 L 99 10/07/21 22:05 36.5 C 100 H 16 91/56 L 100 10/07/21 22:13 36.3 C L 84 18 81/47 L 99 10/07/21 20:56 85 16 79/50 L 100 10/07/21 20:45 84 16 79/55 L 100 10/07/21 20:28 80 14 67/38 L 100 10/07/21 19:54 97 H 16 90/72 L 10/07/21 19:46 82 14 110/67 100 10/07/21 19:30 83 14 93/54 L 100 10/07/21 19:16 85 17 81/57 L 97 10/07/21 19:09 91 H 21 100/59 L 98 10/07/21 18:53 88 98 10/07/21 18:52 88 19 93/59 L 98 O2 Del Method 10/08/21 00:00 10/07/21 22:15 10/07/21 22:02 10/07/21 22:02 10/07/21 22:00 10/07/21 21:51 10/07/21 21:51 10/07/21 21:46 10/07/21 21:46 10/07/21 21:45 10/07/21 21:31 10/07/21 21:31 10/07/21 21:30 10/07/21 21:16 10/07/21 21:16 10/07/21 21:15 10/07/21 21:12 10/07/21 21:12 10/07/21 21:01 10/07/21 21:01 10/07/21 21:00 10/07/21 20:57 10/07/21 20:57 10/07/21 20:45 10/07/21 20:45 10/07/21 20:35 10/07/21 20:35 10/07/21 20:30 10/07/21 20:30 10/07/21 20:23 10/07/21 20:23 10/07/21 20:15 10/07/21 20:15 10/07/21 20:11 10/07/21 20:11 10/07/21 23:12 10/07/21 23:51 10/07/21 23:45 10/07/21 23:35 10/07/21 22:29 10/07/21 23:17 10/07/21 23:12 Room Air 10/07/21 22:05 10/07/21 22:13 10/07/21 20:56 10/07/21 20:45 10/07/21 20:28 10/07/21 19:54 10/07/21 19:46 10/07/21 19:30 10/07/21 19:16 10/07/21 19:09 10/07/21 18:53 Room Air 10/07/21 18:52 Room Air Coding Level of Care Code Critical Care 1st 30-74 mins Diagnoses Hypovolemic shock R57.1 S/P aortic valve replacement Z95.2 Status post colonoscopy with polypectomy Z98.890 Bright red rectal bleeding K62.5 Acute GI bleeding K92.2 Acute blood loss anemia D62
[2021-10-08] MEDS ORDERED: LACTATED RINGER'S 1,000 ML IV SCH (01:30)
[2021-10-08 01:33] LABS: BUN Creatinine Ratio 18.3 (10-20); Calcium 6.3 mg/dl (8.5-10.1); Creatinine Clr Calc Pharmacy 80.9 ml/min; Est GFR (African American) 104.3 ml/min; Magnesium 1.3 mg/dl (1.7-2.4); Potassium 3.7 mmol/L (3.5-5.1)
--- NOTE | 2021-10-08 01:59 | Discharge Summary ---
Date of Service October 08, 2021 Admission HPI Per Admitting Provider She is a 66-year-old female with significant past medical history of mechanical aortic valve replacement for bicuspid aortic valve and has been on Coumadin and aspirin. She underwent colonoscopy with removal of 2 polyps yesterday. She was feeling epigastric discomfort around 1 PM and started to have nausea and vomiting quite a few times. She has had bloody bowel movement about 3 times since then and she has been pale following that and feeling very dizzy and unsteady on feet. She denies any chest pain and/or palpitation or any shortness of breath. She did not have any abdominal distention and no fever and or chills. She was noted to be hypotensive in the emergency room with a hemoglobin of 7.9. She will be admitted to telemetry unit and she will have blood transfusion as soon as it is available. Discharge Data Consultations 10/07/21 19:56 ED Decision to Admit Stat 10/07/21 23:14 Consult Gastroenterology Routine 10/08/21 00:34 Consult Cross Country Coach Routine 10/08/21 01:34 Burn CD for patient Stat Hospital Course (1) Acute GI bleeding: Bright red rectal bleeding: Plan: Status post colonoscopy with removal of 2 polyps on 10/06/2021 A 40 mm polyp in ascending colon and 8 mm in descending colon Received Lovenox 60 mg subcu yesterday and has been off Coumadin Bright red rectal bleeding 3-4 episodes with hypotension Will start intravenous Protonix drip Hemoglobin 7.9 Give 2 units of blood transfusion And type and hold 2 more unit GI service will be consulted-D/W nutrition consultant psycian H&H every 4 hours (2) Hypotension: Plan: Likely secondary to blood loss Has been receiving bolus of normal saline Will start blood transfusion as soon as available We will monitor the patient in telemetry unit (3) Status post colonoscopy with polypectomy: Plan: As above (4) S/P aortic valve replacement: Plan: History of aortic valve replacement with mechanical valve due to bicuspid aortic valve Has been on Coumadin Recently bridged with Lovenox for colonoscopy Received Lovenox last evening Hypertension Has hypotension right now Hold any beta-leonora or blood pressure medicine Hyperlipidemia Hold any statin DVT prophylaxis SCDs CODE STATUS Full (Preceding documentation as per admitting provider.) 10/08/21, 0020 AM Notified by RN of patient SBP 50s. Sp post 3 units PRBC transfusion Patient lethargic. Still with LGIB soaking sheets. 10/07 labs Hemoglobin 9.4 from 7.9 Lactic acid 5.4 AP Hypovolemic/hemorrhagic shock secondary to GI bleed ICU transfer for pressor support Continue IVF resuscitation and as needed transfusion Dr. Juan later on updated by ICU provider of developments. [facility] transfer for further management recommended. Patient kindly accepted for transfer by Dr. Tanmay Reid ([facility] haunted history tour guide on- call). Total time to prepare this discharge summary was less than 10 minutes. Text document was generated using [employer] voice recognition software. It may contain grammatical or spelling errors. Kindly contact undersigned for clarification of any documentation item in question.
[2021-10-08 02:05] LABS: Hematocrit (blood only) 17.5 % (34.1-44.9); Hemoglobin 5.9 g/dl (12.0-16.0); Mean Corpuscular Hemoglobin 28.6 pg (25.0-34.0); Mean Corpuscular Hgb Conc 33.7 g/dL (32.0-36.0); Mean Platelet Volume 10.6 fL (9.4-12.3); Platelet Count 92 K/uL (130-400); RDW Coefficient of Variation 14.4 % (11.5-14.5); RDW Standard Deviation 44.4 fL (36.4-46.3); Red Blood Count 2.06 M/uL (3.93-5.22); White Blood Count 11.94 K/ul (4.8-10.8)
[2021-10-08] MEDS ORDERED: CALCIUM CHLORIDE 10% 1,000 MG in DEXTROSE 5% 50 ML IV STA (02:06)
[2021-10-08] MEDS ORDERED: CALCIUM CHLORIDE 10% 10 ML SYR IV ONE (02:08)
[2021-10-08 02:27] LABS: Fibrinogen 135 mg/dl (184-400); INR 1.5 (0.9-1.1); Prothrombin Time 15.2 Seconds (9.0-12.0)
[2021-10-08 02:32] LABS: Basophils # (auto) 0.01 K/uL (0-0.2); Basophils % (auto) 0.1 %; Immature Granulocytes # (auto) 0.09 K/uL (0.00-0.02); Immature Granulocytes % (auto) 0.8 %; Lymphocytes # (auto) 0.94 K/uL (1.2-3.4); Lymphocytes % (auto) 7.9 %; Monocytes # (auto) 0.69 K/uL (0.24-0.82); Monocytes % (auto) 5.8 %; Neutrophils # (auto) 10.21 K/uL (1.4-6.5); Neutrophils % (auto) 85.4 %; Platelet Estimate Decreased (Normal); RBC Morphology Unremarkable
[2021-10-08 10:35] LABS: iSTAT Art Bld Gas pCO2 Correct 35 mmHg (35-46); iSTAT Art Bld Gas pH Corrected 7.314 (7.35-7.45); iSTAT Arterial Blood Gas HCO3 18 meg/L (19-24); iSTAT Arterial Blood Gas pCO2 36 mmHg (35-46); iSTAT Arterial Blood Gas pH 7.31 (7.35-7.45); iSTAT Arterial Blood Gas pO2 < 32 mmHg (80-95); iSTAT Arterial Blood Gas pO2 C 16; iSTAT Carbon Dioxide 19 mmol/L (24-31); iSTAT Hematocrit < 15 % (37-47); iSTAT Potassium 3.6 mmol/L (3.3-5.0); iSTAT Site R Femoral; iSTAT Sodium 138 mmol/L (135-144)
--- NOTE | 2021-10-08 17:43 | Electrocardiogram Report ---
Test Reason : Blood Pressure : / mmHG Vent. Rate : 083 BPM Atrial Rate : 083 BPM P-R Int : 136 ms QRS Dur : 078 ms QT Int : 382 ms P-R-T Axes : 065 067 072 degrees QTc Int : 448 ms Normal sinus rhythm Possible Left atrial enlargement No previous ECGs available Confirmed by Eduardo Dela Cruz ([id number]) on 10/08/2021 5:42:51 PM Referred By: REFERRED SELF Confirmed By:Bhargav Dela Cruz
--- NOTE | 2021-10-08 17:46 | Electrocardiogram Report ---
Test Reason : Blood Pressure : / mmHG Vent. Rate : 086 BPM Atrial Rate : 086 BPM P-R Int : 128 ms QRS Dur : 074 ms QT Int : 382 ms P-R-T Axes : 055 067 071 degrees QTc Int : 457 ms Normal sinus rhythm Cannot rule out Inferior infarct , age undetermined Nonspecific ST abnormality Abnormal ECG When compared with ECG of 07-OCT-2021 18:54, (unconfirmed) No significant change was found Confirmed by Eduardo Dela Cruz ([id number]) on 10/08/2021 5:45:49 PM Referred By: REFERRED SELF Confirmed By:Bhargav Dela Cruz
== END 2021-10-08 02:59 | disposition short-term general hospital (02) | DRG 377 ==
LOC: ED 18:50 → 1E 20:27

== ENCOUNTER 2021-10-23 17:55 | Inpatient (IN) ==
[2021-10-23] MEDS ORDERED: SODIUM CHLORIDE 0.9% 250 ML IV PRN (18:56)
[2021-10-23 19:21] LABS: iSTAT Creatinine 0.6 mg/dl (0.6-1.3); iSTAT Hemoglobin 6.8 g/dl (12.0-16.0); iSTAT Ionized Calcium 1.15 mmol/l (1.12-1.32); iSTAT Potassium 3.8 mmol/L (3.3-5.0)
[2021-10-23 19:27] LABS: Basophils # (auto) 0.05 K/uL (0-0.2); Basophils % (auto) 0.7 %; Eosinophils # (auto) 0.08 K/uL (0-0.50); Eosinophils % (auto) 1.1 %; Immature Granulocytes # (auto) 0.07 K/uL (0.00-0.02); Immature Granulocytes % (auto) 0.9 %; Lymphocytes # (auto) 1.75 K/uL (1.2-3.4); Lymphocytes % (auto) 23.7 %; Mean Corpuscular Hemoglobin 29.5 pg (25.0-34.0); Mean Corpuscular Hgb Conc 31.8 g/dL (32.0-36.0); Mean Corpuscular Volume 92.8 fL (80.0-100.0); Mean Platelet Volume 9.1 fL (9.4-12.3); Monocytes # (auto) 0.77 K/uL (0.24-0.82); Monocytes % (auto) 10.4 %; Neutrophils # (auto) 4.67 K/uL (1.4-6.5); Neutrophils % (auto) 63.2 %; Platelet Count 547 K/uL (130-400); RDW Coefficient of Variation 16.3 % (11.5-14.5); RDW Standard Deviation 55.3 fL (36.4-46.3); Red Blood Count 2.37 M/uL (3.93-5.22); White Blood Count 7.39 K/ul (4.8-10.8)
--- NOTE | 2021-10-23 19:35 | XRay Report ---
XR chest 1V portable HISTORY: 66 years-old Female weakness acute weakness COMPARISON: Chest radiograph 10/07/2021. TECHNIQUE: Portable AP view of the chest FINDINGS: Cardiac silhouette is enlarged. Prior median sternotomy. No pneumothorax, pleural effusion, airspace consolidation or overt pulmonary edema. Degenerative changes of the shoulders and spine. Sigmoidal th oracolumbar scoliosis. IMPRESSION: No acute process. ACT 112: Negative or not required by law. The above report was generated using voice recognition software. It may contain grammatical, syntax o r spelling errors. Electronically signed by: Tanmay Solano M.D. 10/23/2021 7:34 PM
[2021-10-23 19:45] LABS: Anisocytosis Present; Polychromasia 1+
--- NOTE | 2021-10-23 19:49 | Emergency Department Note ---
Impression & Plan Acute blood loss anemia, Acute lower GI bleeding, Chronic anticoagulation, Status post colonoscopy with polypectomy, S/P aortic valve replacement ED Provider Note CHIEF COMPLAINT: Low hemoglobin HISTORY OF PRESENT ILLNESS: This 66-year-old female patient presents to the emergency department with complaints of a low hemoglobin. The patient has a history of a recent colonoscopy with polypectomy and subsequent bleeding. Patient states she was life flighted from our facility to [facility] where she underwent a blood transfusion of 11 units total and interventional radiology embolize the bleeding vessel. This happened 2 weeks ago and the patient has had only 1 soft stool several days ago. She denies any bowel movements today. She was seen by her primary care provider today who noted hemoglobin of 6.8 and referred her to the emergency department. The patient does have a history of mechanical heart valve replacement and is anticoagulated on Coumadin currently. INR this morning was 2.8. The patient denies any epigastric pain or vomiting. REVIEW OF SYSTEMS: A review of systems was performed with positives and pertinent negatives listed in the history of present illness. 10 systems were reviewed and are otherwise negative. ALLERGIES: see below MEDICATIONS: see below PMH: see below SOCIAL HISTORY: see below DDx: AVM, arterial bleed, venous bleed, rectal mass, diverticular bleed, complication of colonoscopy, supratherapeutic INR, amongst others. PHYSICAL EXAM: Vital signs reviewed. General: Well-appearing 66-year-old female, in no significant distress. HEENT: No scleral icterus, PERRLA, neck supple. Atraumatic. Cardiovascular: Regular rate and rhythm, no extra sounds. Pulmonary: Clear to auscultation bilaterally, normal work of breathing. Abdomen: Soft, nontender, nondistended, positive bowel sounds. Musculoskeletal: Atraumatic, no peripheral edema. Rectal: Guaiac positive melanotic stools, normal external rectal mucosa. Neurologic: Patient awake alert and oriented x 3 Skin: Warm, dry, no rash EMERGENCY DEPARTMENT COURSE/MDM: Patient was evaluated and appeared to be in no significant distress. IV access was obtained and laboratory work was drawn. Patient was placed on the laboratory monitor and was noted to be in a normal sinus rhythm. Patient's blood pressure and heart rate have remained stable. Patient is guaiac positive with melanotic stool. Hemoglobin is 7. She was typed and crossed for 2 units of PRBCs. I did speak with Dr. Nickerson of gastroenterology who requested transfer to [facility]. Dr. Maloney of gastroenterology in [place] stated he felt the patient likely would have had BMs today if she had an acute arterial bleed. The patient is stable with a hemoglobin of 7 and she is anticoagulated therefore he felt CT angiography of the abdomen and pelvis would be a reasonable choice to evaluate for extravasation/acute arterial bleed. Patient was hydrated with normal saline solution and this study was performed. This study is read as below with some hyperemic/thickened changes of the bowel wall but no evidence of acute extravasation. I did speak with Dr. Maloney inform him of the findings. He felt the patient was stable for admission to our facility continue the blood transfusion. I did speak with Dr. Kwan of the anticoagulation service who has recommended 1 mg of IV vitamin K as the patient does have a mechanical aortic valve. Her INR is currently 2.3. Dr. Nickerson was informed of the recommendations of gastroenterology in [place]. Dr. Frederick of the hospitalist service was contacted for admission and further management. The patient and her were informed of the findings and plan and agreed. The patient much prefers to avoid transfer at this time. MONITORING: An order for cardiac monitoring was placed and the patient is noted to be in a NSR at 76 beats per minute. RADIOLOGY: see below EKG: Normal sinus rhythm at [address] segments. Normal QTC at 443. No PVC, no PAC. When compared to previous dated October 07, 2021, T waves have normalized in the anterior leads. DISPOSITION: Admission I have personally spent 60 minutes of critical care time in the direct management of this patient. This was a life/limb threatening event. This 60 minutes is in excess of all separately billable procedures. Past Med/Surg History Medical History (Updated 10/24/21 @ 03:13 by Mireya Morrison MD) Acute GI bleeding Acute lower GI bleeding Chronic anticoagulation Hypertension Hypovolemic shock Surgical History (Updated 10/24/21 @ 03:13 by Mireya Morrison MD) Heart valve replaced S/P aortic valve replacement mechanical valve Status post colonoscopy with polypectomy Social History Smoking Status: Never smoker Second Hand Exposure: No; Hx Alcohol Use: No Hx Substance Use: No Preferred Language: Jamaican Communication Ability: Effective Manager Finance Required: No Beliefs That Will Affect Care: None Current Living Situation: Spouse Feels Safe at Home: Yes Allergies Allergies Allergy/AdvReac Type Severity Reaction Status Date / Time Sulfa (Sulfonamide Allergy Unknown Verified 10/23/21 20:57 Antibiotics) Home Meds Home Medications Medication Instructions Recorded Confirmed aspirin 81 mg tablet,delayed 81 mg PO DAILY 12/02/20 10/23/21 release (Adult Low Dose Aspirin) cholecalciferol (vitamin D3) 50 2,000 unit PO DAILY 10/07/21 10/23/21 mcg (2,000 unit) tablet (Vitamin D3) metoprolol tartrate 25 mg tablet 12.5 mg PO BID 10/07/21 10/23/21 multivitamin 1 tab PO DAILY 10/07/21 10/23/21 rosuvastatin 20 mg tablet 20 mg PO DAILY 10/07/21 10/23/21 warfarin 2.5 mg tablet 2.5 mg PO Q2D 10/07/21 10/23/21 warfarin 5 mg tablet 5 mg PO Q2D 10/07/21 10/23/21 enoxaparin 80 mg/0.8 mL 80 mg subcut [facility] 10/23/21 10/23/21 subcutaneous syringe Results & Data (ED) Vital Signs Vital Signs - 24 hr 10/23/21 18:41 10/23/21 19:07 10/23/21 19:07 Temperature 37.3 C Temperature Source Temporal Artery Scan Pulse Rate 79 Pulse Rate [Right Finger] 76 Pulse Rhythm Pulse Rhythm [Right Finger] Pulse Strength Pulse Strength [Right Finger] Respiratory Rate 18 16 Respiratory Effort / Characteristics Non-Labored Respiratory Depth Normal Respiratory Pattern Regular Blood Pressure 163/76 H Blood Pressure [Right Arm] 134/57 L Blood Pressure Mean 105 Blood Pressure Mean [Right Arm] 82 Blood Pressure Position Sitting Blood Pressure Position [Right Arm] Pulse Oximetry 100 100 100 Oxygen Delivery Method Room Air Room Air Room Air Sepsis Recent Fever Within 48 Hours No Sepsis New/Unexplained Change in Mental Status No Sepsis Action Taken by Nursing No Action Required 10/23/21 20:59 10/23/21 21:19 10/23/21 22:53 Temperature 37.1 C 37.0 C Temperature Source Oral Oral Pulse Rate 80 71 Pulse Rate [Right Finger] 73 Pulse Rhythm Pulse Rhythm [Right Finger] Pulse Strength Pulse Strength [Right Finger] Respiratory Rate 16 16 22 Respiratory Effort / Characteristics Non-Labored Respiratory Depth Normal Respiratory Pattern Blood Pressure 121/64 118/54 L Blood Pressure [Right Arm] 124/63 Blood Pressure Mean 83 75 Blood Pressure Mean [Right Arm] 83 Blood Pressure Position Blood Pressure Position [Right Arm] Pulse Oximetry 100 99 100 Oxygen Delivery Method Room Air Sepsis Recent Fever Within 48 Hours Sepsis New/Unexplained Change in Mental Status Sepsis Action Taken by Nursing 10/23/21 21:34 10/23/21 22:04 10/23/21 23:15 Temperature 37.0 C Temperature Source Oral Pulse Rate 75 75 75 Pulse Rate [Right Finger] Pulse Rhythm Pulse Rhythm [Right Finger] Pulse Strength Pulse Strength [Right Finger] Respiratory Rate 22 Respiratory Effort / Characteristics Respiratory Depth Respiratory Pattern Blood Pressure 118/54 L 124/63 133/89 Blood Pressure [Right Arm] Blood Pressure Mean 75 83 103 Blood Pressure Mean [Right Arm] Blood Pressure Position Sitting Blood Pressure Position [Right Arm] Pulse Oximetry 98 99 100 Oxygen Delivery Method Sepsis Recent Fever Within 48 Hours Sepsis New/Unexplained Change in Mental Status Sepsis Action Taken by Nursing 10/23/21 23:26 10/23/21 23:46 10/23/21 23:48 Temperature 37.0 C 37.1 C 37.1 C Temperature Source Oral Oral Oral Pulse Rate 76 73 72 Pulse Rate [Right Finger] Pulse Rhythm Regular Regular Pulse Rhythm [Right Finger] Pulse Strength Normal Normal Pulse Strength [Right Finger] Respiratory Rate 20 16 16 Respiratory Effort / Characteristics Respiratory Depth Respiratory Pattern Blood Pressure 132/65 123/56 L 123/56 L Blood Pressure [Right Arm] Blood Pressure Mean 87 78 78 Blood Pressure Mean [Right Arm] Blood Pressure Position Sitting Semi-fowlers Semi-fowlers Blood Pressure Position [Right Arm] Pulse Oximetry 100 100 100 Oxygen Delivery Method Sepsis Recent Fever Within 48 Hours Sepsis New/Unexplained Change in Mental Status Sepsis Action Taken by Nursing 10/23/21 23:46 10/24/21 00:01 10/24/21 00:31 Temperature 37.1 C 37.0 C 37.1 C Temperature Source Oral Oral Oral Pulse Rate 74 75 72 Pulse Rate [Right Finger] Pulse Rhythm Regular Regular Regular Pulse Rhythm [Right Finger] Pulse Strength Normal Normal Normal Pulse Strength [Right Finger] Respiratory Rate 16 16 16 Respiratory Effort / Characteristics Respiratory Depth Respiratory Pattern Blood Pressure 123/56 L 122/60 122/66 Blood Pressure [Right Arm] Blood Pressure Mean 78 80 84 Blood Pressure Mean [Right Arm] Blood Pressure Position Semi-fowlers Semi-fowlers Semi-fowlers Blood Pressure Position [Right Arm] Pulse Oximetry 100 100 99 Oxygen Delivery Method Sepsis Recent Fever Within 48 Hours Sepsis New/Unexplained Change in Mental Status Sepsis Action Taken by Nursing 10/24/21 01:23 10/24/21 01:25 10/24/21 01:31 Temperature 37.0 C Temperature Source Oral Pulse Rate 69 75 Pulse Rate [Right Finger] 67 Pulse Rhythm Regular Regular Pulse Rhythm [Right Finger] Regular Pulse Strength Normal Normal Pulse Strength [Right Finger] Normal Respiratory Rate 16 16 16 Respiratory Effort / Characteristics Non-Labored Spontaneous Respiratory Depth Normal Respiratory Pattern Regular Blood Pressure 122/60 118/57 L Blood Pressure [Right Arm] 122/60 Blood Pressure Mean 80 77 Blood Pressure Mean [Right Arm] 80 Blood Pressure Position Semi-fowlers Semi-fowlers Blood Pressure Position [Right Arm] Semi-fowlers Pulse Oximetry 98 98 98 Oxygen Delivery Method Room Air Sepsis Recent Fever Within 48 Hours Sepsis New/Unexplained Change in Mental Status Sepsis Action Taken by Nursing 10/24/21 02:09 Temperature 37.0 C Temperature Source Oral Pulse Rate 72 Pulse Rate [Right Finger] Pulse Rhythm Regular Pulse Rhythm [Right Finger] Pulse Strength Normal Pulse Strength [Right Finger] Respiratory Rate 16 Respiratory Effort / Characteristics Respiratory Depth Respiratory Pattern Blood Pressure 118/59 L Blood Pressure [Right Arm] Blood Pressure Mean 78 Blood Pressure Mean [Right Arm] Blood Pressure Position Semi-fowlers Blood Pressure Position [Right Arm] Pulse Oximetry 98 Oxygen Delivery Method Sepsis Recent Fever Within 48 Hours Sepsis New/Unexplained Change in Mental Status Sepsis Action Taken by [facility] Medications Current Medication List: was personally reviewed by me Laboratory Data Attestation: I reviewed the patient's lab results. Result diagrams: 10/23/21 19:02 Lab Results 10/23/21 10/23/21 10/23/21 Range/Units 19:02 19:02 19:07 WBC 7.39 (4.8-10.8) K/ul RBC 2.37 L (3.93-5.22) M/uL Hgb 7.0 L (12.0-16.0) g/dl POC Hgb (12.0-16.0) g/dl Hct 22.0 L (34.1-44.9) % POC Hct (37-47) % MCV 92.8 (80.0-100.0) fL MCH 29.5 (25.0-34.0) pg MCHC 31.8 L (32.0-36.0) g/dL RDW Std Deviation 55.3 H (36.4-46.3) fL RDW Coeff of Kristy 16.3 H (11.5-14.5) % Plt Count 547 H (130-400) K/uL MPV 9.1 L (9.4-12.3) fL Immature Gran % (Auto) 0.9 % Neut % (Auto) 63.2 % Lymph % (Auto) 23.7 % Ripley % (Auto) 10.4 % Eos % (Auto) 1.1 % Baso % (Auto) 0.7 % Neut # (Auto) 4.67 (1.4-6.5) K/uL Lymph # (Auto) 1.75 (1.2-3.4) K/uL [place] # (Auto) 0.77 (0.24-0.82) K/uL Eos # (Auto) 0.08 (0-0.50) K/uL Baso # (Auto) 0.05 (0-0.2) K/uL Immature Gran # (Auto) 0.07 H (0.00-0.02) K/uL Polychromasia 1+ Anisocytosis Present PT (9.0-12.0) Seconds INR (0.9-1.1) APTT (21.0-31.0) Seconds PTT Ratio POC Sodium (135-144) mmol/L POC Potassium (3.3-5.0) mmol/L POC Chloride (101-112) mmol/L POC Total CO2 (24-31) mmol/L POC Anion Gap (16-25) mmol/L POC BUN (7-18) mg/dl POC Creatinine (0.6-1.3) mg/dl POC Glucose (other) (70-99) mg/dl POC Ioniz Calcium Emy (1.12-1.32) mmol/l TSH 2.975 (0.300-4.500) uIu/ml Urine Color Urine Appearance (Clear) Urine pH (4.5-7.5) Ur Specific [place] (1.000-1.030) Urine Protein (Negative) Urine Glucose (UA) (Negative) Urine Ketones (Negative) Urine Blood (Negative) Urine Nitrite (Negative) Urine Bilirubin (Negative) Urine Urobilinogen (Negative) Ur Leukocyte Esterase (Negative) SARS-CoV-2, RNA, NAAT (NEGATIVE) Blood Type B Positive Antibody Screen NEGATIVE Crossmatch See Detail 10/23/21 10/23/21 10/24/21 Range/Units 19:07 19:07 00:47 WBC (4.8-10.8) K/ul RBC (3.93-5.22) M/uL Hgb (12.0-16.0) g/dl POC Hgb 6.8 L* (12.0-16.0) g/dl Hct (34.1-44.9) % POC Hct 20 L* (37-47) % MCV (80.0-100.0) fL MCH (25.0-34.0) pg MCHC (32.0-36.0) g/dL RDW Std Deviation (36.4-46.3) fL RDW Coeff of Kristy (11.5-14.5) % Plt Count (130-400) K/uL MPV (9.4-12.3) fL Immature Gran % (Auto) % Neut % (Auto) % Lymph % (Auto) % [place] % (Auto) % Eos % (Auto) % Baso % (Auto) % Neut # (Auto) (1.4-6.5) K/uL Lymph # (Auto) (1.2-3.4) K/uL [place] # (Auto) (0.24-0.82) K/uL Eos # (Auto) (0-0.50) K/uL Baso # (Auto) (0-0.2) K/uL Immature Gran # (Auto) (0.00-0.02) K/uL Polychromasia Anisocytosis PT 23.4 H (9.0-12.0) Seconds INR 2.3 H (0.9-1.1) APTT 33.3 H (21.0-31.0) Seconds PTT Ratio 1.2 POC Sodium 138 (135-144) mmol/L POC Potassium 3.8 (3.3-5.0) mmol/L POC Chloride 103 (101-112) mmol/L POC Total CO2 25 (24-31) mmol/L POC Anion Gap 14.0 L (16-25) mmol/L POC BUN 10 (7-18) mg/dl POC Creatinine 0.6 (0.6-1.3) mg/dl POC Glucose (other) 108 H (70-99) mg/dl POC Ioniz Calcium Emy 1.15 (1.12-1.32) mmol/l TSH (0.300-4.500) uIu/ml Urine Color Urine Appearance (Clear) Urine pH (4.5-7.5) Ur Specific [place] (1.000-1.030) Urine Protein (Negative) Urine Glucose (UA) (Negative) Urine Ketones (Negative) Urine Blood (Negative) Urine Nitrite (Negative) Urine Bilirubin (Negative) Urine Urobilinogen (Negative) Ur Leukocyte Esterase (Negative) SARS-CoV-2, RNA, NAAT NEGATIVE (NEGATIVE) Blood Type Antibody Screen Crossmatch 10/24/21 Range/Units 00:47 WBC (4.8-10.8) K/ul RBC (3.93-5.22) M/uL Hgb (12.0-16.0) g/dl POC Hgb (12.0-16.0) g/dl Hct (34.1-44.9) % POC Hct (37-47) % MCV (80.0-100.0) fL MCH (25.0-34.0) pg MCHC (32.0-36.0) g/dL RDW Std Deviation (36.4-46.3) fL RDW Coeff of Kristy (11.5-14.5) % Plt Count (130-400) K/uL MPV (9.4-12.3) fL Immature Gran % (Auto) % Neut % (Auto) % Lymph % (Auto) % [place] % (Auto) % Eos % (Auto) % Baso % (Auto) % Neut # (Auto) (1.4-6.5) K/uL Lymph # (Auto) (1.2-3.4) K/uL [place] # (Auto) (0.24-0.82) K/uL Eos # (Auto) (0-0.50) K/uL Baso # (Auto) (0-0.2) K/uL Immature Gran # (Auto) (0.00-0.02) K/uL Polychromasia Anisocytosis PT (9.0-12.0) Seconds INR (0.9-1.1) APTT (21.0-31.0) Seconds PTT Ratio POC Sodium (135-144) mmol/L POC Potassium (3.3-5.0) mmol/L POC Chloride (101-112) mmol/L POC Total CO2 (24-31) mmol/L POC Anion Gap (16-25) mmol/L POC BUN (7-18) mg/dl POC Creatinine (0.6-1.3) mg/dl POC Glucose (other) (70-99) mg/dl POC Ioniz Calcium Emy (1.12-1.32) mmol/l TSH (0.300-4.500) uIu/ml Urine Color Yellow Urine Appearance Clear (Clear) Urine pH 6.0 (4.5-7.5) Ur Specific [place] 1.006 (1.000-1.030) Urine Protein Negative (Negative) Urine Glucose (UA) Negative (Negative) Urine Ketones Negative (Negative) Urine Blood Negative (Negative) Urine Nitrite Negative (Negative) Urine Bilirubin Negative (Negative) Urine Urobilinogen Negative (Negative) Ur Leukocyte Esterase Negative (Negative) SARS-CoV-2, RNA, NAAT (NEGATIVE) Blood Type Antibody Screen Crossmatch Administered Medications Discontinued Medications Phytonadione 1 mg/ Dextrose 50.1 mls @ 100.5 mls/hr IV ONE ONE Stop: 10/23/21 21:01 Last Infusion: 10/23/21 22:29 Dose: 0 mls/hr Documented By: Admin: 10/23/21 21:59 Dose: 100.5 mls/hr Documented By: CRISTIAN Ioversol (Optiray 300 500ml) 115 ml IV ONCE ONE Stop: 10/23/21 20:46 Last Admin: 10/23/21 20:46 Dose: 115 ml Documented By: ANTONETTE Imaging Data Radiologist's Impression: Chest X-Ray 10/23/21 18:56 XR chest 1V portable HISTORY: 66 years-old Female weakness acute weakness COMPARISON: Chest radiograph 10/07/2021. TECHNIQUE: Portable AP view of the chest FINDINGS: Cardiac silhouette is enlarged. Prior median sternotomy. No pneumothorax, pl eural effusion, airspace consolidation or overt pulmonary edema. Degenerative changes of the shoulders and spine. Sigmoidal thoracolumbar scoliosis. IMPRESSION: No acute process. ACT 112: Negative or not required by law. The above report was generated using voice recognition software. It may contain grammatical, syntax or spelling errors. Electronically signed by: Tanmay Solano M.D. 10/23/2021 7:34 PM Abdomen/Pelvis CTA 10/23/21 20:10 CT angio abdomen pelvis w con CLINICAL HISTORY: 66 years-old Female with GI Bleed s/p colonoscopy, extravasation acute GI bleed after colonoscopy. Recent colonoscopy with polyp removal and subsequent bleeding. COMPARISON STUDY: KUB 10/07/2021 TECHNIQUE: Following the IV administration of 115 cc of Optiray, CT angiogram of the abdomen and pelvis was performed from the lung bases the proximal femora. Images are reviewed in the axial, sagittal, and coronal planes. 3-D MIPS images are created and assessed. All measurements were obtained according to NASCET criteria. IV contrast was administered without complication. A dose lowering technique was utilized adhering to the principles of ALARA. CT DOSE: 307.17 mGy.cm FINDINGS: CT ABDOMEN/PELVIS: Cardiomegaly. Prior median sternotomy. Prosthetic aortic valve. Mild subsegmental bibasilar atelectasis. No pneumatosis or pneumoperitoneum. The spleen, pancreas and adrenal glands are unremarkable. Cholelithiasis with equivocal wall thickening of the gallbladder. Unremarkable liver. Symmetric enhancement of the kidneys without hydronephrosis. Urinary bladder wall thickening with partial distention. Unremarkable uterus and adnexa. The postmenopausal endometrium measures within the upper limits of normal. No lymphadenopathy. No bowel obstruction. Biopsy clips of the descending colon. Moderate fecal retention. Embolization coils are noted along the mid aspect of the ascending colon. There is moderate focal wall thickening with mucosal hyperemia and pericolonic stranding of the colon adjacent to the coils with mild luminal narrowing. The appendix is not diagnostically visualized. No CT evidence of acute appendicitis. Unremarkable soft tissues. There is no acute fracture. Degenerative changes of the spine, pelvis and hips. Lumbar levoscoliosis. CTA: No significant atherosclerosis. The abdominal aorta, iliac and imaged femoral arteries are patent. The celiac trunk, superior and inferior mesenteric and renal arteries are patent. No active extravasation identified involving the colon at the site of embolization. IMPRESSION: 1. Surgical clips of the colon are noted. Additionally, there are embolization coils adjacent to the mid transverse colon. Adjacent to the coils, there is focal circumferential wall thickening with mucosal hyperemia and pericolonic stranding involving the ascending colon resulting in mild luminal narrowing without obstruction. Findings are suggestive of a nonspecific colitis or could be secondary to the reported recent colonic hemorrhage. 2. Unremarkable CTA. No evidence of active extravasation. 3. Moderate fecal retention. 4. Additional findings as above. ACT 112: Negative or not required by law. The above report was generated using voice recognition software. It may contain grammatical, syntax or spelling errors. Electronically signed by: Tanmay Solano M.D. 10/23/2021 9:22 PM Blood Pressure Blood Pressure Findings: Normal blood pressure Blood Pressure Disposition: did not require urgent referral Discharge Plan Visit Data Chief Complaint: Abnormal Labs/Diagnostic Testing Stated Complaint: ABNORMAL LAB, REFERRED BY DOCTOR ED Provider: Mireya Morrison Discharge Problem: Acute blood loss anemia, Acute lower GI bleeding, Chronic anticoagulation, Status post colonoscopy with polypectomy, S/P aortic valve replacement Forms Stand Alone Forms: [facility] [employer] Prescriptions Prescriptions: No Action aspirin [Adult Low Dose Aspirin] 81 mg tablet,delayed release (DR/EC) 81 mg PO DAILY warfarin 2.5 mg tablet 2.5 mg PO Q2D warfarin 5 mg tablet 5 mg PO Q2D rosuvastatin 20 mg tablet 20 mg PO DAILY metoprolol tartrate 25 mg tablet 12.5 mg PO BID multivitamin Tablet 1 tab PO DAILY cholecalciferol (vitamin D3) [Vitamin D3] 50 mcg (2,000 unit) Tablet 2,000 unit PO DAILY enoxaparin 80 mg/0.8 mL syringe 80 mg subcut [facility] Referrals Referrals: Ramakrishna Correa PA-C [Primary Care Provider] -
[2021-10-23 20:10] LABS: INR 2.3 (0.9-1.1); Partial Thromboplastin Ratio 1.2; Partial Thromboplastin Time 33.3 Seconds (21.0-31.0); Prothrombin Time 23.4 Seconds (9.0-12.0)
[2021-10-23] MEDS ORDERED: SODIUM CHLORIDE 0.9% 1000ML 1,000 ML IV SCH (20:30)
[2021-10-23] MEDS ORDERED: PHYTONADIONE 1 MG in DEXTROSE 5% 50 ML IV ONE (20:32)
[2021-10-23] MEDS ORDERED: OPTIRAY 300 500mL IV ONE (20:45)
--- NOTE | 2021-10-23 21:25 | CT Scan Report ---
CT angio abdomen pelvis w con CLINICAL HISTORY: 66 years-old Female with GI Bleed s/p colonoscopy, extravasation acute GI bleed after colonoscopy. Recent colonoscopy with polyp removal and subsequent bleeding. COMPARISON STUDY: KUB 10/07/2021 TECHNIQUE: Following the IV administration of 115 cc of Optiray, CT angiogram of the abdomen and pelv is was performed from the lung bases the proximal femora. Images are reviewed in the axial, sagittal, and coronal planes. 3-D MIPS images are created and assessed. All measurements were obtained accordi ng to NASCET criteria. IV contrast was administered without complication. A dose lowering technique was utilized adhering to the principles of ALARA. CT DOSE: 307.17 mGy.cm FINDINGS: CT ABDOMEN/PELVIS: Cardiomegaly. Prior median sternotomy. Prosthetic aortic valve. Mild subsegmental bibasilar atelectas is. No pneumatosis or pneumoperitoneum. The spleen, pancreas and adrenal glands are unremarkable. Cho lelithiasis with equivocal wall thickening of the gallbladder. Unremarkable liver. Symmetric enhancem ent of the kidneys without hydronephrosis. Urinary bladder wall thickening with partial distention. U nremarkable uterus and adnexa. The postmenopausal endometrium measures within the upper limits of nor mal. No lymphadenopathy. No bowel obstruction. Biopsy clips of the descending colon. Moderate fecal retention. Embolization co ils are noted along the mid aspect of the ascending colon. There is moderate focal wall thickening wi th mucosal hyperemia and pericolonic stranding of the colon adjacent to the coils with mild luminal n arrowing. The appendix is not diagnostically visualized. No CT evidence of acute appendicitis. Unrema rkable soft tissues. There is no acute fracture. Degenerative changes of the spine, pelvis and hips. Lumbar levoscoliosis. CTA: No significant atherosclerosis. The abdominal aorta, iliac and imaged femoral arteries are patent. Th e celiac trunk, superior and inferior mesenteric and renal arteries are patent. No active extravasati on identified involving the colon at the site of embolization. IMPRESSION: 1. Surgical clips of the colon are noted. Additionally, there are embolization coils adjacent to the mid transverse colon. Adjacent to the coils, there is focal circumferential wall thickening with muco polly hyperemia and pericolonic stranding involving the ascending colon resulting in mild luminal narro wing without obstruction. Findings are suggestive of a nonspecific colitis or could be secondary to t he reported recent colonic hemorrhage. 2. Unremarkable CTA. No evidence of active extravasation. 3. Moderate fecal retention. 4. Additional findings as above. ACT 112: Negative or not required by law. The above report was generated using voice recognition software. It may contain grammatical, syntax o r spelling errors. Electronically signed by: Tanmay Solano M.D. 10/23/2021 9:22 PM
[2021-10-24 01:12] LABS: Appearance Urine Clear (Clear); Bilirubin Urine Negative (Negative); Blood Urine Negative (Negative); Color Urine Yellow; Glucose Urine UA Negative (Negative); Ketones Urine Negative (Negative); Leukocyte Esterase Urine Negative (Negative); Nitrite Urine Negative (Negative); Protein Urine Negative (Negative); Specific Gravity Urine 1.006 (1.000-1.030); Urobilinogen Urine Negative (Negative)
--- NOTE | 2021-10-24 02:21 | History and Physical Report ---
DATE OF ADMISSION: 10/24/2021. CHIEF COMPLAINT: Abnormal labs and anemia. HISTORY OF PRESENT ILLNESS: This is a 66-year-old female with past medical history significant for mechanical aortic valve replacement for bicuspid aortic valve, and on Coumadin and aspirin; history of hypertension; history of thrombocytopenia; history of hypercalcemia. The patient underwent a colonoscopy with removal of polyps recently and had subsequent bleeding. She was life- flighted from [facility] to [facility] and had 11 units of blood transfusion and interventional radiology embolizing the bleeding vessel. This happened about 2 weeks ago. The patient says she was discharged from [place] on 10/12/2021. Since then, she was doing okay. A couple of days ago, on 10/21/2021, she had some bloody bowel movement with some blood clots. She saw the family doctor today and outpatient labs showed hemoglobin of 6.8 and she was advised to come to the hospital. After the one episode of bloody bowel movement on 10/21/2021, she had another bowel movement, which was normal. Denies any abdominal pain. Normal bowel and bladder movements. No chest pain, no shortness of breath, no cough, no fevers, no headache, no blurred visions, no earache, no runny nose, no sore throat, no dizziness. Currently, resting comfortably and hemodynamically stable. ER contacted the GI diamond powder technician and was advised to transfer to [place], but [facility] wanted to do CTA abdomen and pelvis and there was no extravasation, so they advised to keep the patient here and declined for transfer at this time and the patient also wanted to stay in the hospital. Her INR is 2.3. ER discussed with Dr. Patterson advised for 1 mg of IV vitamin K, which was given in the ER. ER also transfused 2 units of PRBCs. The patient is getting second unit of PRBCs right now. Hemodynamically stable. ALLERGIES: SULFA ANTIBIOTICS. PAST MEDICAL HISTORY: As mentioned above. PAST SURGICAL HISTORY: Colonoscopy, IR arterial embolization. MEDICATIONS: The patient is on aspirin 81 mg p.o. daily, vitamin D 2000 units p.o. daily, metoprolol tartrate 12.5 mg p.o. b.i.d., multivitamin 1 tablet p.o. daily, lovastatin 20 mg p.o. daily, Coumadin 2.5 mg every other day, and warfarin 5 mg every other day. FAMILY HISTORY: Significant for no family history on file. SOCIAL HISTORY: . No smoking. No alcohol. REVIEW OF SYSTEMS: As per HPI. Rest of review of systems is negative. PHYSICAL EXAMINATION: GENERAL: The patient is of moderate build, not in acute distress. VITAL SIGNS: Temperature 37.1, pulse 72, respiratory rate 16, blood pressure 122/66, oxygen 99% on room air. HEENT: Pupils equal, round, and reactive to light. Oral mucosa moist. NECK: No JVD. No neck masses. CARDIOVASCULAR: S1 and S2 heard. mechanical sound heard in aortic area. RESPIRATORY SYSTEM: Normal AP diameter. No accessory muscle use. No wheezing or crackles. ABDOMEN: Soft, bowel sounds present, nontender, no distention. CENTRAL NERVOUS SYSTEM: Cranial nerves II through XII are grossly intact, nonfocal. EXTREMITIES: No edema, no erythema. LABORATORY DATA: WBC 7.3, hemoglobin 7, hematocrit 22, platelets 547. PT 23.4, INR 2.3, APTT 33.3. Sodium 138, potassium 3.8, chloride 103, BUN 10, creatinine 0.6, serum glucose 108. TSH is 2.9. IMAGING DATA: CT of abdomen and pelvis with CT angiogram of pelvis with contrast, surgical clips of the colon are noted. Additionally, there are embolization coils adjacent to the mid transverse colon. Adjacent to the coil, there is focal circumferential wall thickening with mucosal hyperemia and pericolonic stranding involving the ascending colon resulting in mild luminal narrowing without obstruction. Findings are suggestive of nonspecific colitis or could be secondary to the reported recent colonic hemorrhage. Unremarkable CTA. No evidence of active extravasation. Moderate fecal retention. Chest x- ray, no acute process. EKG: Normal sinus rhythm at a rate of 81. No acute ST changes seen. ASSESSMENT AND PLAN: This 66-year-old female presents with abnormal labs. 1. Abnormal labs: Anemia, hemoglobin 7, had blood in the stool couple of days ago. The patient recently had bleeding after a polypectomy with colonoscopy and transferred to [place] had 11 units prbc and had IR embolization. GI wanted to transfer to [facility] again, but ER talked to [facility] and as CTA is showing no extravasation, they declined transfer at this time. The patient is getting 2 units of PRBCs. We will follow the H and H. GI consult. Will keep her n.p.o. until seen by GI. Closely monitor in the med tele. Received IV vitamin K 1 mg. Holding Coumadin and aspirin. 2. Hypertension: On metoprolol, monitor. 3. Hyperlipidemia: On statin. 4. History of mechanical aortic valve replacement, holding the Coumadin. Currently INR of 2.3. Got 1 mg of IV vitamin K. Will follow the PT/INR in the a.m. If no no obvious signs of bleeding,can bridged with heparin. 5. Deep venous thrombosis prophylaxis: Sequential compression devices for now. DISPOSITION: Closely monitor in the med tele. PT/OT prior to discharge. Social service to help with discharge planning. Job ID: [id number] [facility]ITALTeetee
[2021-10-24] MEDS ORDERED: ONDANSETRON INJ 2 MG/ML 2 ML VIAL IV PRN (03:27)
[2021-10-24] MEDS ORDERED: NITROGLYCERIN SL 0.4 MG/TAB TAB SL PRN (03:27)
[2021-10-24 05:36] LABS: INR 1.6 (0.9-1.1); Prothrombin Time 16.9 Seconds (9.0-12.0)
[2021-10-24 05:47] LABS: BUN Creatinine Ratio 15.4 (10-20); Calcium 8.7 mg/dl (8.5-10.1); Magnesium 1.9 mg/dl (1.7-2.4); Potassium 3.7 mmol/L (3.5-5.1)
[2021-10-24] MEDS: SODIUM CHLORIDE 0.9% 1000ML 1,000 ML IV SCH ×2 (05:58→16:36)
[2021-10-24 06:11] LABS: Basophils # (auto) 0.06 K/uL (0-0.2); Basophils % (auto) 1.1 %; Eosinophils # (auto) 0.13 K/uL (0-0.50); Eosinophils % (auto) 2.4 %; Hemoglobin 9.3 g/dl (12.0-16.0); Immature Granulocytes # (auto) 0.06 K/uL (0.00-0.02); Immature Granulocytes % (auto) 1.1 %; Lymphocytes # (auto) 1.23 K/uL (1.2-3.4); Lymphocytes % (auto) 22.5 %; Mean Corpuscular Hemoglobin 29.2 pg (25.0-34.0); Mean Corpuscular Hgb Conc 33.2 g/dL (32.0-36.0); Mean Corpuscular Volume 87.8 fL (80.0-100.0); Mean Platelet Volume 9.1 fL (9.4-12.3); Monocytes # (auto) 0.64 K/uL (0.24-0.82); Monocytes % (auto) 11.7 %; Neutrophils # (auto) 3.34 K/uL (1.4-6.5); Neutrophils % (auto) 61.2 %; Platelet Count 396 K/uL (130-400); RDW Coefficient of Variation 16.7 % (11.5-14.5); RDW Standard Deviation 51.9 fL (36.4-46.3); Red Blood Count 3.19 M/uL (3.93-5.22); White Blood Count 5.46 K/ul (4.8-10.8)
--- NOTE | 2021-10-24 07:28 | Anesthesiology Consultation ---
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 History Surgery Operation Date: 10/24/21 07:10 Proposed Procedures p Esophagogastroduodenoscopy Dr Krishan Nickerson DO Height/Weight Height: 5 ft 5 in Weight: 71 kg Allergies Allergy/AdvReac Type Severity Reaction Status Date / Time Sulfa (Sulfonamide Allergy Unknown Verified 10/23/21 20:57 Antibiotics) Medications Home Medications Medication Instructions Recorded Confirmed Last Taken aspirin 81 mg tablet,delayed 81 mg PO DAILY 12/02/20 10/23/21 Unknown release (Adult Low Dose Aspirin) cholecalciferol (vitamin D3) 50 2,000 unit PO DAILY 10/07/21 10/23/21 Unknown mcg (2,000 unit) tablet (Vitamin D3) metoprolol tartrate 25 mg tablet 12.5 mg PO BID 10/07/21 10/23/21 Unknown multivitamin 1 tab PO DAILY 10/07/21 10/23/21 Unknown rosuvastatin 20 mg tablet 20 mg PO DAILY 10/07/21 10/23/21 Unknown warfarin 2.5 mg tablet 2.5 mg PO Q2D 10/07/21 10/23/21 Unknown warfarin 5 mg tablet 5 mg PO Q2D 10/07/21 10/23/21 Unknown enoxaparin 80 mg/0.8 mL 80 mg subcut AMHS 10/23/21 10/23/21 Unknown subcutaneous syringe Active Medications Generic Name Dose Route Start Last Admin Trade Name Freq PRN Reason Stop Dose Admin Sodium Chloride 1,000 mls @ 100 mls/hr 10/24/21 03:27 10/24/21 05:58 Nss 1000ml IV 10/24/21 23:26 100 mls/hr .Q10H ADRIANA Administration Past Medical History Medical History Acute GI bleeding Acute lower GI bleeding Chronic anticoagulation Hypertension Hypovolemic shock Past Surgical History Surgical History Heart valve replaced S/P aortic valve replacement mechanical valve Status post colonoscopy with polypectomy Social History Smoking Status: Never smoker Hx Alcohol Use: No Hx Substance Use: No Physical Exam Vital Signs Last Vital Signs Temp 98.6 F 10/24/21 02:09 Pulse 67 10/24/21 05:16 Resp 16 10/24/21 05:16 BP 113/56 L 10/24/21 05:16 Pulse Ox 98 10/24/21 05:16 O2 Del Method 10/24/21 05:16 O2 Flow Rate 0 10/24/21 05:15 Testing Laboratory Results 10/24/21 04:42 10/24/21 04:42 PT 16.9 Seconds (9.0-12.0) H 10/24/21 04:42 INR 1.6 (0.9-1.1) H 10/24/21 04:42 APTT 33.3 Seconds (21.0-31.0) H 10/23/21 19:07 Urine Color Yellow 10/24/21 00:47 Urine Appearance Clear (Clear) 10/24/21 00:47 Urine pH 6.0 (4.5-7.5) 10/24/21 00:47 Ur Specific [place] 1.006 (1.000-1.030) 10/24/21 00:47 Urine Protein Negative (Negative) 10/24/21 00:47 Urine Glucose (UA) Negative (Negative) 10/24/21 00:47 Urine Ketones Negative (Negative) 10/24/21 00:47 Urine Nitrite Negative (Negative) 10/24/21 00:47 Ur Leukocyte Esterase Negative (Negative) 10/24/21 00:47 Blood Type B Positive 10/23/21 19:02 Antibody Screen NEGATIVE 10/23/21 19:02 Electrocardiogram Date: 10/23/21 Normal sinus rhythm, rate 81 bpm Normal ECG When compared with ECG of 07-OCT-2021 21:17, Nonspecific T wave abnormality no longer evident in Anterior leads Chest X-Ray Date: 10/23/21 Findings: + NAD
[2021-10-24] MEDS: METOPROLOL TARTRATE 25 MG TAB PO SCH ×2 (08:57→21:27)
[2021-10-24] MEDS: MULTIVITAMIN TAB PO SCH (08:58)
[2021-10-24] MEDS ORDERED: ROSUVASTATIN CALCIUM 20 MG TAB PO SCH (09:00)
[2021-10-24] MEDS: PANTOprazole 40 MG in SYRINGE 0 ML IV SCH ×2 (09:31→21:30)
--- NOTE | 2021-10-24 10:37 | Gastrointestinal Consultation ---
Date of Consultation October 24, 2021 Assessment & Plan (1) Anemia: Patient referred for evaluation of anemia in the setting of a recent polypectomy complicated by significant post polypectomy bleeding. The CT scan does show inflammatory changes most consistent with ischemic colitis from her embolization. At the present time the patient does not seem to have any significant hematochezia therefore would not recommend any endoscopic intervention at the present time. I think it would be prudent to monitor her overnight and perhaps discharge her if she is doing well on Tuesday. She would benefit from use of an iron supplement to help rebuild her blood count as an outpatient Recommendations MiraLAX 17 g daily Iron supplement Full liquid diet today Hold anticoagulation for 5 days please Please call with any questions Outpatient follow-up with Dr. Worthy with any additional questions or concerns History of Present Illness Reason for Consultation: Anemia Attending Physician: Eris Benitez MD History of Present Illness The patient is a 66-year-old female who underwent a polypectomy of a 4 cm polyp in the ascending colon several weeks ago. She was referred to the emergency room by her primary care doctor due to worsening anemia. The patient had a fairly complex course after her polypectomy as she had significant bleeding requiring urgent flight to a tertiary center with interventional radiology support. She underwent coil embolization of her right colon. The patient denies having nausea vomiting or abdominal pain hematemesis, coffee-ground emesis or today. She denies having dark sticky stool. The patient notes that a few days ago she did have a small volume of blood and clot which passed from her rectum but has not recurred since. Of note the patient did require a 11 unit transfusion in addition to fresh frozen plasma prior to her embolization several weeks ago. Allergies Allergy/AdvReac Type Severity Reaction Status Date / Time Sulfa (Sulfonamide Allergy Unknown Verified 10/23/21 20:57 Antibiotics) Home Medications Medication Instructions Recorded Confirmed Type aspirin 81 mg tablet,delayed 81 mg PO DAILY 12/02/20 10/23/21 History release (Adult Low Dose Aspirin) cholecalciferol (vitamin D3) 50 2,000 unit PO DAILY 10/07/21 10/23/21 History mcg (2,000 unit) tablet (Vitamin D3) metoprolol tartrate 25 mg tablet 12.5 mg PO BID 10/07/21 10/23/21 History multivitamin 1 tab PO DAILY 10/07/21 10/23/21 History rosuvastatin 20 mg tablet 20 mg PO DAILY 10/07/21 10/23/21 History warfarin 2.5 mg tablet 2.5 mg PO Q2D 10/07/21 10/23/21 History warfarin 5 mg tablet 5 mg PO Q2D 10/07/21 10/23/21 History enoxaparin 80 mg/0.8 mL 80 mg subcut AMHS 10/23/21 10/23/21 History subcutaneous syringe Patient History Medical History Acute GI bleeding Acute lower GI bleeding Chronic anticoagulation Hypertension Hypovolemic shock Surgical History Heart valve replaced S/P aortic valve replacement mechanical valve Status post colonoscopy with polypectomy Social History Smoking Status: Never smoker Second Hand Exposure: No; Hx Alcohol Use: No Hx Substance Use: No Preferred Language: Chinese Communication Ability: Effective Hat Block Bench Hand Required: No Beliefs That Will Affect Care: None Current Living Situation: Spouse Feels Safe at Home: Yes Review of Systems Constitutional: + malaise; no fever and no sweats Eyes: no diplopia Ear, Nose, Mouth, Throat: no ear pain Respiratory: no change in sputum and no hemoptysis Cardiovascular: no chest pain with activity Gastrointestinal: no abdominal pain, no bloating, no early satiety, no nausea and no vomiting Genitourinary: no dysuria Musculoskeletal: no radicular pain Integumentary: no rash Neurologic: no falls Endocrine: no polydipsia Hematologic / Lymphatic: On Chronic anticoagulation due to a mechanical heart valve Physical Exam Constitutional: WD/WN, vitals as above Eyes: PERRL, conjunctivae normal, anicteric sclerae ENMT: external ear and nose normal, oropharynx normal Neck: trachea midline, no thyromegaly Respiratory: normal respiratory effort, lungs clear to auscultation Cardiovascular: Metalic click consistent with her heart valve heard Gastrointestinal (Abdomen): normal bowel sounds, soft, nontender, no hepat osplenomegaly Results & Data ([facility]) Vital Signs (Past 12 Hours) Vital Signs Temp Pulse Pulse Resp BP BP Pulse Ox 10/24/21 07:00 73 18 117/61 100 10/24/21 05:16 67 16 113/56 L 98 10/24/21 05:15 10/24/21 02:09 37.0 C 72 16 118/59 L 98 10/24/21 01:31 75 16 118/57 L 98 10/24/21 01:25 37.0 C 69 16 122/60 98 10/24/21 01:23 67 16 122/60 98 10/24/21 00:31 37.1 C 72 16 122/66 99 10/24/21 00:01 37.0 C 75 16 122/60 100 10/23/21 23:46 37.1 C 74 16 123/56 L 100 10/23/21 23:48 37.1 C 72 16 123/56 L 100 10/23/21 23:46 37.1 C 73 16 123/56 L 100 10/23/21 23:26 37.0 C 76 20 132/65 100 10/23/21 23:15 37.0 C 75 22 133/89 100 10/23/21 22:53 73 22 124/63 100 Pulse Ox O2 Del Method O2 Del Method O2 Flow Rate 10/24/21 07:00 Room Air 10/24/21 05:16 Room Air 10/24/21 05:15 98 Room Air 0 10/24/21 02:09 10/24/21 01:31 10/24/21 01:25 10/24/21 01:23 Room Air 10/24/21 00:31 10/24/21 00:01 10/23/21 23:46 10/23/21 23:48 10/23/21 23:46 10/23/21 23:26 10/23/21 23:15 10/23/21 22:53 Room Air Laboratory Results Laboratory Results - last 24 hr 10/23/21 10/23/21 10/23/21 19:02 19:02 19:07 WBC 7.39 RBC 2.37 L Hgb 7.0 L POC Hgb Hct 22.0 L POC Hct MCV 92.8 MCH 29.5 MCHC 31.8 L RDW Std Deviation 55.3 H RDW Coeff of Kristy 16.3 H Plt Count 547 H MPV 9.1 L Immature Gran % (Auto) 0.9 Neut % (Auto) 63.2 Lymph % (Auto) 23.7 [place] % (Auto) 10.4 Eos % (Auto) 1.1 Baso % (Auto) 0.7 Neut # (Auto) 4.67 Lymph # (Auto) 1.75 [place] # (Auto) 0.77 Eos # (Auto) 0.08 Baso # (Auto) 0.05 Immature Gran # (Auto) 0.07 H Polychromasia 1+ Anisocytosis Present PT INR APTT PTT Ratio POC Sodium Sodium POC Potassium Potassium POC Chloride Chloride Carbon Dioxide POC Total CO2 Anion Gap POC Anion Gap POC BUN BUN Creatinine POC Creatinine Est Cr Clr Drug Dosing Est GFR ( Amer) Est GFR (Non-Af Amer) BUN/Creatinine Ratio Glucose POC Glucose (other) Calcium POC Ioniz Calcium Emy Magnesium TSH 2.975 Urine Color Urine Appearance Urine pH Ur Specific [place] Urine Protein Urine Glucose (UA) Urine Ketones Urine Blood Urine Nitrite Urine Bilirubin Urine Urobilinogen Ur Leukocyte Esterase SARS-CoV-2, RNA, NAAT Blood Type B Positive Antibody Screen NEGATIVE Crossmatch See Detail 10/23/21 10/23/21 10/24/21 19:07 19:07 00:47 WBC RBC Hgb POC Hgb 6.8 L* Hct POC Hct 20 L* MCV MCH MCHC RDW Std Deviation RDW Coeff of Kristy Plt Count MPV Immature Gran % (Auto) Neut % (Auto) Lymph % (Auto) [place] % (Auto) Eos % (Auto) Baso % (Auto) Neut # (Auto) Lymph # (Auto) [place] # (Auto) Eos # (Auto) Baso # (Auto) Immature Gran # (Auto) Polychromasia Anisocytosis PT 23.4 H INR 2.3 H APTT 33.3 H PTT Ratio 1.2 POC Sodium 138 Sodium POC Potassium 3.8 Potassium POC Chloride 103 Chloride Carbon Dioxide POC Total CO2 25 Anion Gap POC Anion Gap 14.0 L POC BUN 10 BUN Creatinine POC Creatinine 0.6 Est Cr Clr Drug Dosing Est GFR ( Amer) Est GFR (Non-Af Amer) BUN/Creatinine Ratio Glucose POC Glucose (other) 108 H Calcium POC Ioniz Calcium Emy 1.15 Magnesium TSH Urine Color Urine Appearance Urine pH Ur Specific [place] Urine Protein Urine Glucose (UA) Urine Ketones Urine Blood Urine Nitrite Urine Bilirubin Urine Urobilinogen Ur Leukocyte Esterase SARS-CoV-2, RNA, NAAT NEGATIVE Blood Type Antibody Screen Crossmatch 09/10/24/21 10/24/21 00:47 04:42 04:42 WBC 5.46 RBC 3.19 L Hgb 9.3 L POC Hgb Hct 28.0 L POC Hct MCV 87.8 D MCH 29.2 MCHC 33.2 RDW Std Deviation 51.9 H RDW Coeff of Kristy 16.7 H Plt Count 396 MPV 9.1 L Immature Gran % (Auto) 1.1 Neut % (Auto) 61.2 Lymph % (Auto) 22.5 [place] % (Auto) 11.7 Eos % (Auto) 2.4 Baso % (Auto) 1.1 Neut # (Auto) 3.34 Lymph # (Auto) 1.23 [place] # (Auto) 0.64 Eos # (Auto) 0.13 Baso # (Auto) 0.06 Immature Gran # (Auto) 0.06 H Polychromasia Anisocytosis PT INR APTT PTT Ratio POC Sodium Sodium 139 POC Potassium Potassium 3.7 POC Chloride Chloride 108 H Carbon Dioxide 27 POC Total CO2 Anion Gap 4 POC Anion Gap POC BUN BUN 8 Creatinine 0.52 L POC Creatinine Est Cr Clr Drug Dosing 108.0 Est GFR ( Amer) 117.0 Est GFR (Non-Af Amer) 101.0 BUN/Creatinine Ratio 15.4 Glucose 98 POC Glucose (other) Calcium 8.7 POC Ioniz Calcium Emy Magnesium 1.9 TSH Urine Color Yellow Urine Appearance Clear Urine pH 6.0 Ur Specific [place] 1.006 Urine Protein Negative Urine Glucose (UA) Negative Urine Ketones Negative Urine Blood Negative Urine Nitrite Negative Urine Bilirubin Negative Urine Urobilinogen Negative Ur Leukocyte Esterase Negative SARS-CoV-2, RNA, NAAT Blood Type Antibody Screen Crossmatch 10/24/21 04:42 WBC RBC Hgb POC Hgb Hct POC Hct MCV MCH MCHC RDW Std Deviation RDW Coeff of Kristy Plt Count MPV Immature Gran % (Auto) Neut % (Auto) Lymph % (Auto) [place] % (Auto) Eos % (Auto) Baso % (Auto) Neut # (Auto) Lymph # (Auto) [place] # (Auto) Eos # (Auto) Baso # (Auto) Immature Gran # (Auto) Polychromasia Anisocytosis PT 16.9 H INR 1.6 H APTT PTT Ratio POC Sodium Sodium POC Potassium Potassium POC Chloride Chloride Carbon Dioxide POC Total CO2 Anion Gap POC Anion Gap POC BUN BUN Creatinine POC Creatinine Est Cr Clr Drug Dosing Est GFR ( Amer) Est GFR (Non-Af Amer) BUN/Creatinine Ratio Glucose POC Glucose (other) Calcium POC Ioniz Calcium Emy Magnesium TSH Urine Color Urine Appearance Urine pH Ur Specific [place] Urine Protein Urine Glucose (UA) Urine Ketones Urine Blood Urine Nitrite Urine Bilirubin Urine Urobilinogen Ur Leukocyte Esterase SARS-CoV-2, RNA, NAAT Blood Type Antibody Screen Crossmatch Diagnostic Findings CT angio abdomen pelvis w con CLINICAL HISTORY: 66 years-old Female with GI Bleed s/p colonoscopy, extravasation acute GI bleed after colonoscopy. Recent colonoscopy with polyp removal and subsequent bleeding. COMPARISON STUDY: KUB 10/07/2021 TECHNIQUE: Following the IV administration of 115 cc of Optiray, CT angiogram of the abdomen and pelvis was performed from the lung bases the proximal femora. Images are reviewed in the axial, sagittal, and coronal planes. 3-D MIPS images are created and assessed. All measurements were obtained according to NASCET criteria. IV contrast was administered without complication. A dose lowering technique was utilized adhering to the principles of ALARA. CT DOSE: 307.17 mGy.cm FINDINGS: CT ABDOMEN/PELVIS: Cardiomegaly. Prior median sternotomy. Prosthetic aortic valve. Mild subsegmental bibasilar atelectasis. No pneumatosis or pneumoperitoneum. The spleen, pancreas and adrenal glands are unremarkable. Cholelithiasis with equivocal wall thickening of the gallbladder. Unremarkable liver. Symmetric enhancement of the kidneys without hydronephrosis. Urinary bladder wall thickening with partial distention. Unremarkable uterus and adnexa. The postmenopausal endometrium measures within the upper limits of normal. No lymphadenopathy. No bowel obstruction. Biopsy clips of the descending colon. Moderate fecal retention. Embolization coils are noted along the mid aspect of the ascending colon. There is moderate focal wall thickening with mucosal hyperemia and pericolonic stranding of the colon adjacent to the coils with mild luminal narrowing. The appendix is not diagnostically visualized. No CT evidence of acute appendicitis. Unremarkable soft tissues. There is no acute fracture. Degenerative changes of the spine, pelvis and hips. Lumbar levoscoliosis. CTA: No significant atherosclerosis. The abdominal aorta, iliac and imaged femoral arteries are patent. The celiac trunk, superior and inferior mesenteric and renal arteries are patent. No active extravasation identified involving the colon at the site of embolization. IMPRESSION: 1. Surgical clips of the colon are noted. Additionally, there are embolization coils adjacent to the mid transverse colon. Adjacent to the coils, there is focal circumferential wall thickening with mucosal hyperemia and pericolonic stranding involving the ascending colon resulting in mild luminal narrowing without obstruction. Findings are suggestive of a nonspecific colitis or could be secondary to the reported recent colonic hemorrhage. 2. Unremarkable CTA. No evidence of active extravasation. 3. Moderate fecal retention. 4. Additional findings as above.
[2021-10-24 11:37] LABS: Basophils # (auto) 0.05 K/uL (0-0.2); Basophils % (auto) 0.9 %; Eosinophils # (auto) 0.11 K/uL (0-0.50); Eosinophils % (auto) 1.9 %; Hematocrit (blood only) 28.3 % (34.1-44.9); Hemoglobin 9.1 g/dl (12.0-16.0); Immature Granulocytes # (auto) 0.03 K/uL (0.00-0.02); Immature Granulocytes % (auto) 0.5 %; Lymphocytes # (auto) 0.85 K/uL (1.2-3.4); Lymphocytes % (auto) 14.5 %; Mean Corpuscular Hemoglobin 28.5 pg (25.0-34.0); Mean Corpuscular Hgb Conc 32.2 g/dL (32.0-36.0); Mean Corpuscular Volume 88.7 fL (80.0-100.0); Monocytes # (auto) 0.59 K/uL (0.24-0.82); Monocytes % (auto) 10.1 %; Neutrophils # (auto) 4.22 K/uL (1.4-6.5); Neutrophils % (auto) 72.1 %; Platelet Count 395 K/uL (130-400); RDW Coefficient of Variation 17.2 % (11.5-14.5); RDW Standard Deviation 54.1 fL (36.4-46.3); Red Blood Count 3.19 M/uL (3.93-5.22); White Blood Count 5.85 K/ul (4.8-10.8)
--- NOTE | 2021-10-24 13:51 | Electrocardiogram Report ---
Test Reason : Blood Pressure : / mmHG Vent. Rate : 081 BPM Atrial Rate : 081 BPM P-R Int : 138 ms QRS Dur : 078 ms QT Int : 382 ms P-R-T Axes : 049 063 060 degrees QTc Int : 443 ms Normal sinus rhythm Normal ECG When compared with ECG of 07-OCT-2021 21:17, Nonspecific T wave abnormality no longer evident in Anterior leads Confirmed by Сергей Carl ([id number]) on 10/24/2021 1:51:38 PM Referred By: Ramakrishna Correa Confirmed By:Сергей Carl
--- NOTE | 2021-10-24 15:49 | Hospitalist Progress Note ---
Date of Service October 24, 2021 Assessment & Plan (1) Lower GI bleed: (2) H/O mechanical aortic valve replacement: (3) Anemia: Plan Patient is a 66-year-old female with past medical history of AVR s/p mechanical prosthesis ( [employer] [place] Mechanical valve and bovine pericardial root enlargement), hypertension, recent colonoscopy with post-polypectomy syndrome requiring transfer to [place] for IR embolization ( Discharged on 10/12 with Hb of 8.7) presented with episode of bloody bowel movement with blood clot 3 days prior to the admission. She presented with hemoglobin of 7. She was transfused 2 units of packed RBC. CT angio abdomen was done which did not show active bleeding. Patient is admitted to the telemetry floor for further care. Lower GI bleed likely secondary to Ischemic Colitis Acute blood loss anemia Mechanical aortic valve on warfarin status post vitamin K Hemoglobin on presentation7.0; received 2 units of blood; hemoglobin improved to 9. CT angio abdomenno active bleeding, nonspecific colitis seen. PT/INR1.6/16.9. Plan; Full liquid diet as per GI. - Monitor hemoglobin. Doing CBC every 6 hours. Recommend holding anticoagulation for 5 days. Discussed with patient regarding high thrombotic risk not being on anticoagulation; patient understands the risks of not being on a anticoagulant and agrees with plan. Chronic conditions: 3. Hypertension: On metoprolol, monitor. 4. Hyperlipidemia: On statin. 5. Deep venous thrombosis prophylaxis: Sequential compression devices for now. Admission and Anticipated Discharge Date Admission Date: October 24, 2021 Subjective Patient seen and examined at bedside. She is comfortable; not in any distress. No bowel movement since presenting to the hospital. Her last bowel movement was on which had clots. Review of Systems Review of Systems: All systems reviewed & are unremarkable except as noted in Subjective Physical Exam Physical Exam: GENERAL: The patient is of moderate build, not in acute distress. HEENT: Pupils equal, round, and reactive to light. Oral mucosa moist. NECK: No JVD. No neck masses. CARDIOVASCULAR: S1 and S2 heard. mechanical sound heard in aortic area. RESPIRATORY SYSTEM: Normal AP diameter. No accessory muscle use. No wheezing or crackles. ABDOMEN: Soft, bowel sounds present, nontender, no distention. CENTRAL NERVOUS SYSTEM: Cranial nerves II through XII are grossly intact, nonfocal. EXTREMITIES: No edema, no erythema. Results & Data Results & Data ([facility]) Vital Signs (Past 12 Hours) Vital Signs Temp Pulse Resp BP Pulse Ox Pulse Ox O2 Del Method 10/24/21 14:48 36.9 C 73 16 121/73 99 Room Air 10/24/21 14:06 120/58 L 10/24/21 07:00 73 18 117/61 100 Room Air 10/24/21 05:16 67 16 113/56 L 98 Room Air 10/24/21 05:15 98 O2 Del Method O2 Flow Rate 10/24/21 14:48 10/24/21 14:06 10/24/21 07:00 10/24/21 05:16 10/24/21 05:15 Room Air 0 Laboratory Results Laboratory Results WBC 5.85 K/ul (4.8-10.8) 10/24/21 11:29 RBC 3.19 M/uL (3.93-5.22) L 10/24/21 11:29 Hgb 9.1 g/dl (12.0-16.0) L 10/24/21 11:29 POC Hgb 6.8 g/dl (12.0-16.0) L* 10/23/21 19:07 Hct 28.3 % (34.1-44.9) L 10/24/21 11:29 POC Hct 20 % (37-47) L* 10/23/21 19:07 MCV 88.7 fL (80.0-100.0) 10/24/21 11:29 MCH 28.5 pg (25.0-34.0) 10/24/21 11:29 MCHC 32.2 g/dL (32.0-36.0) 10/24/21 11:29 RDW Std Deviation 54.1 fL (36.4-46.3) H 10/24/21 11:29 RDW Coeff of Kristy 17.2 % (11.5-14.5) H 10/24/21 11:29 Plt Count 395 K/uL (130-400) 10/24/21 11:29 MPV 9.0 fL (9.4-12.3) L 10/24/21 11:29 Immature Gran % (Auto) 0.5 % 10/24/21 11:29 Neut % (Auto) 72.1 % 10/24/21 11:29 Lymph % (Auto) 14.5 % 10/24/21 11:29 Titus % (Auto) 10.1 % 10/24/21 11:29 Eos % (Auto) 1.9 % 10/24/21 11:29 Baso % (Auto) 0.9 % 10/24/21 11:29 Neut # (Auto) 4.22 K/uL (1.4-6.5) 10/24/21 11:29 Lymph # (Auto) 0.85 K/uL (1.2-3.4) L 10/24/21 11:29 Titus # (Auto) 0.59 K/uL (0.24-0.82) 10/24/21 11: Eos # (Auto) 0.11 K/uL (0-0.50) 10/24/21 11: Baso # (Auto) 0.05 K/uL (0-0.2) 10/24/21 11: Immature Gran # (Auto) 0.03 K/uL (0.00-0.02) H 10/24/21 11:29 Polychromasia 1+ 10/23/21 19:02 Anisocytosis Present 10/23/21 19:02 PT 16.9 Seconds (9.0-12.0) H 10/24/21 04:42 INR 1.6 (0.9-1.1) H 10/24/21 04:42 APTT 33.3 Seconds (21.0-31.0) H 10/23/21 19:07 PTT Ratio 1.2 10/23/21 19:07 POC Sodium 138 mmol/L (135-144) 10/23/21 19:07 Sodium 139 mmol/L (136-145) 10/24/21 04:42 POC Potassium 3.8 mmol/L (3.3-5.0) 10/23/21 19:07 Potassium 3.7 mmol/L (3.5-5.1) 10/24/21 04:42 POC Chloride 103 mmol/L (101-112) 10/23/21 19:07 Chloride 108 mmol/L (98-107) H 10/24/21 04:42 Carbon Dioxide 27 mmol/L (21-32) 10/24/21 04:42 POC Total CO2 25 mmol/L (24-31) 10/23/21 19:07 Anion Gap 4 (3-11) 10/24/21 04:42 POC Anion Gap 14.0 mmol/L (16-25) L 10/23/21 19:07 POC BUN 10 mg/dl (7-18) 10/23/21 19:07 BUN 8 mg/dl (6-23) 10/24/21 04:42 Creatinine 0.52 mg/dl (0.6-1.2) L 10/24/21 04:42 POC Creatinine 0.6 mg/dl (0.6-1.3) 10/23/21 19:07 Est Cr Clr Drug Dosing 108.0 ml/min 10/24/21 04:42 Est GFR ( Amer) 117.0 ml/min 10/24/21 04:42 Est GFR (Non-Af Amer) 101.0 ml/min 10/24/21 04:42 BUN/Creatinine Ratio 15.4 (10-20) 10/24/21 04:42 Glucose 98 mg/dl (70-99(Fasting)) 10/24/21 04:42 POC Glucose (other) 108 mg/dl (70-99) H 10/23/21 19:07 Calcium 8.7 mg/dl (8.5-10.1) 10/24/21 04:42 POC Ioniz Calcium Emy 1.15 mmol/l (1.12-1.32) 10/23/21 19:07 Magnesium 1.9 mg/dl (1.7-2.4) 10/24/21 04:42 TSH 2.975 uIu/ml (0.300-4.500) 10/23/21 19:07 Urine Color Yellow 10/24/21 00:47 Urine Appearance Clear (Clear) 10/24/21 00:47 Urine pH 6.0 (4.5-7.5) 10/24/21 00:47 Ur Specific [place] 1.006 (1.000-1.030) 10/24/21 00:47 Urine Protein Negative (Negative) 10/24/21 00:47 Urine Glucose (UA) Negative (Negative) 10/24/21 00:47 Urine Ketones Negative (Negative) 10/24/21 00:47 Urine Blood Negative (Negative) 10/24/21 00:47 Urine Nitrite Negative (Negative) 10/24/21 00:47 Urine Bilirubin Negative (Negative) 10/24/21 00:47 Urine Urobilinogen Negative (Negative) 10/24/21 00:47 Ur Leukocyte Esterase Negative (Negative) 10/24/21 00:47 SARS-CoV-2, RNA, NAAT NEGATIVE (NEGATIVE) 10/24/21 00:47 Blood Type B Positive 10/23/21 19:02 Antibody Screen NEGATIVE 10/23/21 19:02 Crossmatch See Detail 10/23/21 19:02 Impressions Chest X-Ray 10/23/21 18:56 XR chest 1V portable HISTORY: 66 years-old Female weakness acute weakness COMPARISON: Chest radiograph 10/07/2021. TECHNIQUE: Portable AP view of the chest FINDINGS: Cardiac silhouette is enlarged. Prior median sternotomy. No pneumothorax, pleural effusion, airspace consolidation or overt pulmonary edema. Degenerative changes of the shoulders and spine. Sigmoidal thoracolumbar scoliosis. IMPRESSION: No acute process. ACT 112: Negative or not required by law. The above report was generated using voice recognition software. It may contain grammatical, syntax or spelling errors. Electronically signed by: Tanmay Solano M.D. 10/23/2021 7:34 PM Abdomen/Pelvis CTA 10/23/21 20:10 CT angio abdomen pelvis w con CLINICAL HISTORY: 66 years-old Female with GI Bleed s/p colonoscopy, extravasation acute GI bleed after colonoscopy. Recent colonoscopy with polyp removal and subsequent bleeding. COMPARISON STUDY: KUB 10/07/2021 TECHNIQUE: Following the IV administration of 115 cc of Optiray, CT angiogram of the abdomen and pelvis was performed from the lung bases the proximal femora. Images are reviewed in the axial, sagittal, and coronal planes. 3-D MIPS images are created and assessed. All measurements were obtained according to NASCET criteria. IV contrast was administered without complication. A dose lowering technique was utilized adhering to the principles of ALARA. CT DOSE: 307.17 mGy.cm FINDINGS: CT ABDOMEN/PELVIS: Cardiomegaly. Prior median sternotomy. Prosthetic aortic valve. Mild subsegmental bibasilar atelectasis. No pneumatosis or pneumoperitoneum. The spleen, pancreas and adrenal glands are unremarkable. Cholelithiasis with equivocal wall thickening of the gallbladder. Unremarkable liver. Symmetric enhancement of the kidneys without hydronephrosis. Urinary bladder wall thickening with partial distention. Unremarkable uterus and adnexa. The postmenopausal endometrium measures within the upper limits of normal. No lymphadenopathy. No bowel obstruction. Biopsy clips of the descending colon. Moderate fecal retention. Embolization coils are noted along the mid aspect of the ascending colon. There is moderate focal wall thickening with mucosal hyperemia and pericolonic stranding of the colon adjacent to the coils with mild luminal narrowing. The appendix is not diagnostically visualized. No CT evidence of acute appendicitis. Unremarkable soft tissues. There is no acute fracture. Degenerative changes of the spine, pelvis and hips. Lumbar levoscoliosis. CTA: No significant atherosclerosis. The abdominal aorta, iliac and imaged femoral arteries are patent. The celiac trunk, superior and inferior mesenteric and renal arteries are patent. No active extravasation identified involving the colon at the site of embolization. IMPRESSION: 1. Surgical clips of the colon are noted. Additionally, there are embolization coils adjacent to the mid transverse colon. Adjacent to the coils, there is focal circumferential wall thickening with mucosal hyperemia and pericolonic stranding involving the ascending colon resulting in mild luminal narrowing wi thout obstruction. Findings are suggestive of a nonspecific colitis or could be secondary to the reported recent colonic hemorrhage. 2. Unremarkable CTA. No evidence of active extravasation. 3. Moderate fecal retention. 4. Additional findings as above. ACT 112: Negative or not required by law. The above report was generated using voice recognition software. It may contain grammatical, syntax or spelling errors. Electronically signed by: Tanmay Solano M.D. 10/23/2021 9:22 PM
[2021-10-24] MEDS: POLYETHYLENE (MIRALAX) 17 GM PACK PO SCH (16:41)
[2021-10-24 17:36] LABS: Basophils # (auto) 0.05 K/uL (0-0.2); Basophils % (auto) 0.8 %; Eosinophils # (auto) 0.15 K/uL (0-0.50); Eosinophils % (auto) 2.3 %; Hematocrit (blood only) 29.4 % (34.1-44.9); Hemoglobin 9.8 g/dl (12.0-16.0); Immature Granulocytes # (auto) 0.04 K/uL (0.00-0.02); Immature Granulocytes % (auto) 0.6 %; Lymphocytes # (auto) 0.91 K/uL (1.2-3.4); Lymphocytes % (auto) 14.1 %; Mean Corpuscular Hemoglobin 29.3 pg (25.0-34.0); Mean Corpuscular Hgb Conc 33.3 g/dL (32.0-36.0); Mean Platelet Volume 9.5 fL (9.4-12.3); Monocytes # (auto) 0.62 K/uL (0.24-0.82); Monocytes % (auto) 9.6 %; Neutrophils % (auto) 72.6 %; Platelet Count 463 K/uL (130-400); RDW Coefficient of Variation 17.3 % (11.5-14.5); Red Blood Count 3.34 M/uL (3.93-5.22); White Blood Count 6.47 K/ul (4.8-10.8)
[2021-10-24] MEDS: ACETAMINOPHEN 325 MG TAB PO PRN (21:29)
[2021-10-24] MEDS: ROSUVASTATIN CALCIUM 20 MG TAB PO SCH (21:29)
[2021-10-25 01:16] LABS: Basophils # (auto) 0.05 K/uL (0-0.2); Eosinophils # (auto) 0.22 K/uL (0-0.50); Eosinophils % (auto) 4.3 %; Hematocrit (blood only) 25.3 % (34.1-44.9); Hemoglobin 8.4 g/dl (12.0-16.0); Immature Granulocytes # (auto) 0.04 K/uL (0.00-0.02); Immature Granulocytes % (auto) 0.8 %; Lymphocytes # (auto) 1.35 K/uL (1.2-3.4); Lymphocytes % (auto) 26.5 %; Mean Corpuscular Hgb Conc 33.2 g/dL (32.0-36.0); Mean Corpuscular Volume 87.2 fL (80.0-100.0); Monocytes # (auto) 0.53 K/uL (0.24-0.82); Monocytes % (auto) 10.4 %; Neutrophils # (auto) 2.91 K/uL (1.4-6.5); Platelet Count 366 K/uL (130-400); RDW Coefficient of Variation 17.2 % (11.5-14.5); RDW Standard Deviation 52.8 fL (36.4-46.3)
[2021-10-25 01:25] LABS: INR 1.2 (0.9-1.1); Prothrombin Time 12.3 Seconds (9.0-12.0)
[2021-10-25 01:42] LABS: Albumin Globulin Ratio 1.7 (0.9-2); BUN Creatinine Ratio 12.2 (10-20); Bilirubin,Total 0.7 mg/dl (0.2-1.0); Calcium 8.1 mg/dl (8.5-10.1); Creatinine Clr Calc Pharmacy 114.6 ml/min; Est GFR (African American) 119.3 ml/min; Globulin 1.8 gm/dl (2.5-4.0); Potassium 3.4 mmol/L (3.5-5.1); Total Protein 4.8 gm/dl (6.0-8.3)
[2021-10-25] MEDS: ACETAMINOPHEN 325 MG TAB PO PRN (02:31)
[2021-10-25 07:18] LABS: Basophils # (auto) 0.05 K/uL (0-0.2); Basophils % (auto) 1.1 %; Eosinophils # (auto) 0.16 K/uL (0-0.50); Eosinophils % (auto) 3.4 %; Hematocrit (blood only) 28.2 % (34.1-44.9); Hemoglobin 9.2 g/dl (12.0-16.0); Immature Granulocytes # (auto) 0.04 K/uL (0.00-0.02); Immature Granulocytes % (auto) 0.9 %; Lymphocytes # (auto) 1.28 K/uL (1.2-3.4); Lymphocytes % (auto) 27.6 %; Mean Corpuscular Hemoglobin 28.8 pg (25.0-34.0); Mean Corpuscular Hgb Conc 32.6 g/dL (32.0-36.0); Mean Corpuscular Volume 88.1 fL (80.0-100.0); Mean Platelet Volume 9.1 fL (9.4-12.3); Monocytes # (auto) 0.44 K/uL (0.24-0.82); Monocytes % (auto) 9.5 %; Neutrophils # (auto) 2.67 K/uL (1.4-6.5); Neutrophils % (auto) 57.5 %; Platelet Count 418 K/uL (130-400); RDW Coefficient of Variation 17.2 % (11.5-14.5); RDW Standard Deviation 54.4 fL (36.4-46.3); White Blood Count 4.64 K/ul (4.8-10.8)
[2021-10-25] MEDS: POLYETHYLENE (MIRALAX) 17 GM PACK PO SCH (08:02)
[2021-10-25] MEDS: METOPROLOL TARTRATE 25 MG TAB PO SCH ×2 (08:02→20:57)
[2021-10-25] MEDS: PANTOprazole 40 MG in SYRINGE 0 ML IV SCH (08:02)
[2021-10-25] MEDS: MULTIVITAMIN TAB PO SCH (08:05)
--- NOTE | 2021-10-25 08:56 | Gastroenterology Progress Note ---
Date of Service October 25, 2021 Assessment & Plan (1) Post-polypectomy bleeding: Plan: Patient with a history of post polypectomy bleeding requiring interventional radiology support for coil embolization of a bleeding vessel. The patient presented with worsening anemia and intermittent passage of hematochezia, imaging seems to indicate ischemic colitis in the region of the prior embolization. Given the patient's history of an aortic valve replacement perhaps it would be better for her to resume anticoagulation today to reduce the chance of her developing problems with blood clotting. It may be worthwhile to obtain cardiology input given the complexity of her case. Recommendations MiraLAX 17 g daily Continue daily CBC Advance diet as tolerated Agree with resumption of heparin for anticoagulation Should the patient has significant rebleeding occur she would likely need referral to a tertiary care center as she may need surgical intervention in the right colon Admission and Anticipated Discharge Date Admission Date: October 24, 2021 Subjective The patient denies having bright red blood from the rectum but does note having passage of dark stool last 24 hours. She denies having nausea vomiting or abdominal discomfort. Review of Systems Eyes: no diplopia Respiratory: no change in sputum and no hemoptysis Cardiovascular: no chest pain with activity Physical Exam Neck: trachea midline, no thyromegaly Respiratory: normal respiratory effort, lungs clear to auscultation Cardiovascular: Heart Sounds: + click and + murmur Gastrointestinal (Abdomen): normal bowel sounds, soft, nontender, no he patosplenomegaly Results & Data ([facility]) Vital Signs (Past 12 Hours) Vital Signs Temp Pulse Pulse Resp BP Pulse Ox Pulse Ox 10/25/21 08:09 37.2 C 75 20 125/69 96 10/25/21 05:34 97 10/25/21 03:47 36.9 C 74 18 107/66 97 10/24/21 23:56 72 10/24/21 22:30 36.9 C 75 18 107/66 97 O2 Del Method O2 Del Method 10/25/21 08:09 Room Air 10/25/21 05:34 Room Air 10/25/21 03:47 Room Air 10/24/21 23:56 10/24/21 22:30 Room Air Laboratory Results Laboratory Results - last 24 hr 10/24/21 10/24/21 10/25/21 11:29 17:11 00:56 WBC 5.85 6.47 RBC 3.19 L 3.34 L Hgb 9.1 L 9.8 L Hct 28.3 L 29.4 L MCV 88.7 88.0 MCH 28.5 29.3 MCHC 32.2 33.3 RDW Std Deviation 54.1 H 54.0 H RDW Coeff of Kristy 17.2 H 17.3 H Plt Count 395 463 H MPV 9.0 L 9.5 Immature Gran % (Auto) 0.5 0.6 Neut % (Auto) 72.1 72.6 Lymph % (Auto) 14.5 14.1 Levy % (Auto) 10.1 9.6 Eos % (Auto) 1.9 2.3 Baso % (Auto) 0.9 0.8 Neut # (Auto) 4.22 4.70 Lymph # (Auto) 0.85 L 0.91 L Levy # (Auto) 0.59 0.62 Eos # (Auto) 0.11 0.15 Baso # (Auto) 0.05 0.05 Immature Gran # (Auto) 0.03 H 0.04 H PT 12.3 H INR 1.2 H Sodium Potassium Chloride Carbon Dioxide Anion Gap BUN Creatinine Est Cr Clr Drug Dosing Est GFR ( Amer) Est GFR (Non-Af Amer) BUN/Creatinine Ratio Glucose Calcium Total Bilirubin AST ALT Alkaline Phosphatase Total Protein Albumin Globulin Albumin/Globulin Ratio 10/25/21 10/25/21 10/25/21 00:56 00:56 06:41 WBC 5.10 4.64 L RBC 2.90 L 3.20 L Hgb 8.4 L 9.2 L Hct 25.3 L 28.2 L MCV 87.2 88.1 MCH 29.0 28.8 MCHC 33.2 32.6 RDW Std Deviation 52.8 H 54.4 H RDW Coeff of Kristy 17.2 H 17.2 H Plt Count 366 418 H MPV 9.0 L 9.1 L Immature Gran % (Auto) 0.8 0.9 Neut % (Auto) 57.0 57.5 Lymph % (Auto) 26.5 27.6 Levy % (Auto) 10.4 9.5 Eos % (Auto) 4.3 3.4 Baso % (Auto) 1.0 1.1 Neut # (Auto) 2.91 2.67 Lymph # (Auto) 1.35 1.28 Levy # (Auto) 0.53 0.44 Eos # (Auto) 0.22 0.16 Baso # (Auto) 0.05 0.05 Immature Gran # (Auto) 0.04 H 0.04 H PT INR Sodium 139 Potassium 3.4 L Chloride 110 H Carbon Dioxide 24 Anion Gap 5 BUN 6 Creatinine 0.49 L Est Cr Clr Drug Dosing 114.6 Est GFR ( Amer) 119.3 Est GFR (Non-Af Amer) 103.0 BUN/Creatinine Ratio 12.2 Glucose 87 Calcium 8.1 L Total Bilirubin 0.7 AST 28 ALT 32 Alkaline Phosphatase 55 Total Protein 4.8 L Albumin 3.0 L Globulin 1.8 L Albumin/Globulin Ratio 1.7
[2021-10-25] MEDS ORDERED: Heparin IV Adult Wt-Based Low-Dose *NO* Bolus Protocol IV ONE (08:59)
[2021-10-25 10:40] LABS: Basophils # (auto) 0.04 K/uL (0-0.2); Basophils % (auto) 0.8 %; Eosinophils # (auto) 0.13 K/uL (0-0.50); Eosinophils % (auto) 2.6 %; Hematocrit (blood only) 29.7 % (34.1-44.9); Hemoglobin 9.8 g/dl (12.0-16.0); Immature Granulocytes # (auto) 0.03 K/uL (0.00-0.02); Immature Granulocytes % (auto) 0.6 %; Lymphocytes # (auto) 0.95 K/uL (1.2-3.4); Lymphocytes % (auto) 18.8 %; Mean Corpuscular Hemoglobin 29.3 pg (25.0-34.0); Mean Corpuscular Volume 88.9 fL (80.0-100.0); Mean Platelet Volume 8.8 fL (9.4-12.3); Monocytes # (auto) 0.54 K/uL (0.24-0.82); Monocytes % (auto) 10.7 %; Neutrophils # (auto) 3.36 K/uL (1.4-6.5); Neutrophils % (auto) 66.5 %; Platelet Count 411 K/uL (130-400); Red Blood Count 3.34 M/uL (3.93-5.22); White Blood Count 5.05 K/ul (4.8-10.8)
[2021-10-25 11:06] LABS: INR 1.1 (0.9-1.1); Partial Thromboplastin Ratio 0.9; Partial Thromboplastin Time 25.7 Seconds (21.0-31.0); Prothrombin Time 11.7 Seconds (9.0-12.0)
[2021-10-25] MEDS: HEPARIN SODIUM/DEXTROSE 25,000 UNITS/500 ML BAG IV SCH (11:10)
--- NOTE | 2021-10-25 11:53 | Cardiology Consultation ---
Date of Consultation October 25, 2021 Assessment & Plan (1) S/P aortic valve replacement: (2) Chronic anticoagulation: (3) Lower GI bleed: (4) Post-polypectomy bleeding: Plan I had a long discussion with the patient regarding risks of recurrent GI bleeding versus risk of thrombosis/cerebrovascular accident as it relates to her mechanical valve. Hemoglobin stable since admission. No signs of recurrent bright red blood per rectum, melena, or hematochezia. Agree with cautious resumption of intravenous heparin. Continue to hold low-dose aspirin at this time. Monitor daily H&H. As per gastroenterology consultation, if bleeding recurs, patient will require transfer to tertiary care facility. History of Present Illness Reason for Consultation: Comanagement of mechanical aortic valve with gastrointestinal bleeding Requesting Physician: Dr. Benitez Attending Physician: Eris Benitez MD History of Present Illness 66-year-old female with a history of [place] mechanical aortic valve replacement for bicuspid valve 2014 on chronic Coumadin aspirin presented to the emergency department with recurrent symptoms of lower GI bleed and anemia. Large colon polyp removed in late September resulting in significant lower GI bleeding require 11 units of packed red blood cell transfusion. Ultimately patient was transferred to [place] where interventional radiology performed a coil embolization. She experienced recurrent symptoms of hematochezia earlier this week. Anticoagulation on hold since Tuesday. Denies any recurrent hematochezia since hospitalization. Notes some dark solid stools this morning. Treated with vitamin K on arrival. INR 2.3 admission, currently 1.1. Has received 2 units of packed red blood cells during this admission. Patient feeling well from a cardiovascular perspective. Denies chest pain, shortness of breath, or palpitations. Telemetry reveals sinus rhythm. Allergies Allergy/AdvReac Type Severity Reaction Status Date / Time Sulfa (Sulfonamide Allergy Unknown Verified 10/23/21 20:57 Antibiotics) Home Medications Medication Instructions Recorded Confirmed Type aspirin 81 mg tablet,delayed 81 mg PO DAILY 12/02/20 10/23/21 History release (Adult Low Dose Aspirin) cholecalciferol (vitamin D3) 50 2,000 unit PO DAILY 10/07/21 10/23/21 History mcg (2,000 unit) tablet (Vitamin D3) metoprolol tartrate 25 mg tablet 12.5 mg PO BID 10/07/21 10/23/21 History multivitamin 1 tab PO DAILY 10/07/21 10/23/21 History rosuvastatin 20 mg tablet 20 mg PO DAILY 10/07/21 10/23/21 History warfarin 2.5 mg tablet 2.5 mg PO Q2D 10/07/21 10/23/21 History warfarin 5 mg tablet 5 mg PO Q2D 10/07/21 10/23/21 History enoxaparin 80 mg/0.8 mL 80 mg subcut [facility] 10/23/21 10/23/21 History subcutaneous syringe Patient History Medical History Acute GI bleeding Acute lower GI bleeding Chronic anticoagulation Hypertension Hypovolemic shock Surgical History Heart valve replaced S/P aortic valve replacement mechanical valve Status post colonoscopy with polypectomy Social History Smoking Status: Never smoker Second Hand Exposure: No; Hx Alcohol Use: No Hx Substance Use: No Preferred Language: Cymro Communication Ability: Effective Brake Liner Required: No Beliefs That Will Affect Care: None Current Living Situation: Spouse Other Information That Helps Us Care for You: No Feels Safe at Home: Yes Safety Concerns: Feels Safe At This Time Assistive Devices: None Review of Systems Review of Systems: All systems reviewed & are unremarkable except as noted in Subjective Physical Exam Constitutional: well developed and well nourished; no acute distress Respiratory: normal respiratory effort; no respiratory distress, no labored breathing and no retractions Auscultation: no crackles, no rales, no rhonchi and no wheezes Cardiovascular: Rate/Rhythm: regular rate and regular rhythm Heart Sounds: normal S1, normal S2 and + murmur (2/6 systolic ejection murmur heard best at the base) Vessels: no JVD and no carotid bruit Extremities: no edema Gastrointestinal (Abdomen): Inspection/Auscultation: abdomen normal to inspection and normal bowel sounds; abdomen not distended Percussi on/Palpation: abdomen soft; abdomen nontender, no guarding and abdomen not rigid Neurologic: CN's II-XI intact bilaterally and moves all extremities; no focal motor deficits Results & Data ([facility]) Vital Signs (Past 12 Hours) Vital Signs Temp Pulse Pulse Resp BP Pulse Ox Pulse Ox 10/25/21 11:22 36.7 C 66 19 147/80 H 98 10/25/21 09:57 65 10/25/21 08:09 37.2 C 75 20 125/69 96 10/25/21 05:34 97 10/25/21 03:47 36.9 C 74 18 107/66 97 10/24/21 23:56 72 O2 Del Method O2 Del Method 10/25/21 11:22 Room Air 10/25/21 09:57 10/25/21 08:09 Room Air 10/25/21 05:34 Room Air 10/25/21 03:47 Room Air 10/24/21 23:56
--- NOTE | 2021-10-25 14:01 | Hospitalist Progress Note ---
Date of Service October 25, 2021 Assessment & Plan (1) Lower GI bleed: (2) H/O mechanical aortic valve replacement: (3) Anemia: Plan At 9Patient is a 66-year-old female with past medical history of AVR s/p mechanical prosthesis ( [employer] [place] [employer] Mechanical valve and bovine pericardial root enlargement), hypertension, recent colonoscopy with post-polypectomy syndrome requiring transfer to [facility] for IR embolization ( Discharged on 10/12 with Hb of 8.7) presented with episode of bloody bowel movement with blood clot 3 days prior to the admission. She presented with hemoglobin of 7. She was transfused 2 units of packed RBC. CT angio abdomen was done which did not show active bleeding. Patient is admitted to the telemetry floor for further care. Lower GI bleed likely secondary to Ischemic Colitis Acute blood loss anemia Mechanical aortic valve on warfarin status post vitamin K Hemoglobin on presentation7.0; received 2 units of blood; hemoglobin improved to 9. CBC since the hospitalization is stable. CT angio abdomenno active bleeding, nonspecific colitis seen. PT/INR1.6/16.9., Down trended today to 1.1. Plan; Advance her diet as tolerated. -Discussed with GI regarding her increased thrombotic risks due to the mechanical valve. Agreeable to start low-dose heparin drip today and see if patient tolerates. Cardiology consulted for comanagement; agree with the plan regarding low-dose heparin. If patient were to bleed again; patient may require transfer to a higher center. -Patient understands the risk of starting on anticoagulation and is agreeable to the plan. Chronic conditions: 3. Hypertension: On metoprolol, monitor. 4. Hyperlipidemia: On statin. 5. Deep venous thrombosis prophylaxis:IV heparin CODE STATUS full Admission and Anticipated Discharge Date Admission Date: October 24, 2021 Subjective Seen and examined at bedside. She is comfortable; denies any abdominal pain or vomiting. She had 1 bowel movement which was maroon color. No complaints of weakness/numbness of any body part, visual disturbances or headache. Review of Systems Review of Systems: All systems reviewed & are unremarkable except as noted in Subjective Physical Exam Physical Exam: GENERAL: The patient is of moderate build, not in acute distress. HEENT: Pupils equal, round, and reactive to light. Oral mucosa moist. NECK: No JVD. No neck masses. CARDIOVASCULAR: S1 and S2 heard. mechanical sound heard in aortic area. RESPIRATORY SYSTEM: Normal AP diameter. No accessory muscle use. No wheezing or crackles. ABDOMEN: Soft, bowel sounds present, nontender, no distention. CENTRAL NERVOUS SYSTEM: Cranial nerves II through XII are grossly intact, nonfocal. EXTREMITIES: No edema, no erythema. Results & Data Results & Data ([facility]) Vital Signs (Past 12 Hours) Vital Signs Temp Pulse Pulse Resp BP Pulse Ox Pulse Ox 10/25/21 11:22 36.7 C 66 19 147/80 H 98 10/25/21 09:57 65 10/25/21 08:09 37.2 C 75 20 125/69 96 10/25/21 05:34 97 10/25/21 03:47 36.9 C 74 18 107/66 97 O2 Del Method O2 Del Method 10/25/21 11:22 Room Air 10/25/21 09:57 10/25/21 08:09 Room Air 10/25/21 05:34 Room Air 10/25/21 03:47 Room Air Laboratory Results Laboratory Results WBC 5.05 K/ul (4.8-10.8) 10/25/21 10:19 RBC 3.34 M/uL (3.93-5.22) L 10/25/21 10:19 Hgb 9.8 g/dl (12.0-16.0) L 10/25/21 10:19 POC Hgb 6.8 g/dl (12.0-16.0) L* 10/23/21 19:07 Hct 29.7 % (34.1-44.9) L 10/25/21 10:19 POC Hct 20 % (37-47) L* 10/23/21 19:07 MCV 88.9 fL (80.0-100.0) 10/25/21 10:19 MCH 29.3 pg (25.0-34.0) 10/25/21 10:19 MCHC 33.0 g/dL (32.0-36.0) 10/25/21 10:19 RDW Std Deviation 54.0 fL (36.4-46.3) H 10/25/21 10:19 RDW Coeff of Kristy 17.0 % (11.5-14.5) H 10/25/21 10:19 Plt Count 411 K/uL (130-400) H 10/25/21 10:19 MPV 8.8 fL (9.4-12.3) L 10/25/21 10:19 Immature Gran % (Auto) 0.6 % 10/25/21 10:19 Neut % (Auto) 66.5 % 10/25/21 10:19 Lymph % (Auto) 18.8 % 10/25/21 10:19 [place] % (Auto) 10.7 % 10/25/21 10:19 Eos % (Auto) 2.6 % 10/25/21 10:19 Baso % (Auto) 0.8 % 10/25/21 10:19 Neut # (Auto) 3.36 K/uL (1.4-6.5) 10/25/21 10:19 Lymph # (Auto) 0.95 K/uL (1.2-3.4) L 10/25/21 10:19 [place] # (Auto) 0.54 K/uL (0.24-0.82) 10/25/21 10:19 Eos # (Auto) 0.13 K/uL (0-0.50) 10/25/21 10:19 Baso # (Auto) 0.04 K/uL (0-0.2) 10/25/21 10:19 Immature Gran # (Auto) 0.03 K/uL (0.00-0.02) H 10/25/21 10:19 Polychromasia 1+ 10/23/21 19:02 Anisocytosis Present 10/23/21 19:02 PT 11.7 Seconds (9.0-12.0) 10/25/21 10:19 INR 1.1 (0.9-1.1) 10/25/21 10:19 APTT 25.7 Seconds (21.0-31.0) 10/25/21 10:19 PTT Ratio 0.9 10/25/21 10:19 POC Sodium 138 mmol/L (135-144) 10/23/21 19:07 Sodium 139 mmol/L (136-145) 10/25/21 00:56 POC Potassium 3.8 mmol/L (3.3-5.0) 10/23/21 19:07 Potassium 3.4 mmol/L (3.5-5.1) L 10/25/21 00:56 POC Chloride 103 mmol/L (101-112) 10/23/21 19:07 Chloride 110 mmol/L (98-107) H 10/25/21 00:56 Carbon Dioxide 24 mmol/L (21-32) 10/25/21 00:56 POC Total CO2 25 mmol/L (24-31) 10/23/21 19:07 Anion Gap 5 (3-11) 18 00:56 POC Anion Gap 14.0 mmol/L (16-25) L 10/23/21 19:07 POC BUN 10 mg/dl (7-18) 10/23/21 19:07 BUN 6 mg/dl (6-23) 10/25/21 00:56 Creatinine 0.49 mg/dl (0.6-1.2) L 10/25/21 00:56 POC Creatinine 0.6 mg/dl (0.6-1.3) 10/23/21 19:07 Est Cr Clr Drug Dosing 114.6 ml/min 10/25/21 00:56 Est GFR ( Amer) 119.3 ml/min 10/25/21 00:56 Est GFR (Non-Af Amer) 103.0 ml/min 10/25/21 00:56 BUN/Creatinine Ratio 12.2 (10-20) 10/25/21 00:56 Glucose 87 mg/dl (70-99(Fasting)) 10/25/21 00:56 POC Glucose (other) 108 mg/dl (70-99) H 10/23/21 19:07 Calcium 8.1 mg/dl (8.5-10.1) L 10/25/21 00:56 POC Ioniz Calcium Emy 1.15 mmol/l (1.12-1.32) 10/23/21 19:07 Magnesium 1.9 mg/dl (1.7-2.4) 10/24/21 04:42 Total Bilirubin 0.7 mg/dl (0.2-1.0) 10/25/21 00:56 AST 28 U/L (13-39) 10/25/21 00:56 ALT 32 U/L (7-52) 10/25/21 00:56 Alkaline Phosphatase 55 U/L (34-104) 10/25/21 00:56 Total Protein 4.8 gm/dl (6.0-8.3) L 10/25/21 00:56 Albumin 3.0 gm/dl (3.4-5.0) L 10/25/21 00:56 Globulin 1.8 gm/dl (2.5-4.0) L 10/25/21 00:56 Albumin/Globulin Ratio 1.7 (0.9-2) 10/25/21 00:56 TSH 2.975 uIu/ml (0.300-4.500) 10/23/21 19:07 Urine Color Yellow 10/24/21 00:47 Urine Appearance Clear (Clear) 10/24/21 00:47 Urine pH 6.0 (4.5-7.5) 10/24/21 00:47 Ur Specific [place] 1.006 (1.000-1.030) 10/24/21 00:47 Urine Protein Negative (Negative) 10/24/21 00:47 Urine Glucose (UA) Negative (Negative) 10/24/21 00:47 Urine Ketones Negative (Negative) 10/24/21 00:47 Urine Blood Negative (Negative) 10/24/21 00:47 Urine Nitrite Negative (Negative) 10/24/21 00:47 Urine Bilirubin Negative (Negative) 10/24/21 00:47 Urine Urobilinogen Negative (Negative) 10/24/21 00:47 Ur Leukocyte Esterase Negative (Negative) 10/24/21 00:47 SARS-CoV-2, RNA, NAAT NEGATIVE (NEGATIVE) 10/24/21 00:47 Blood Type B Positive 10/23/21 19:02 Antibody Screen NEGATIVE 10/23/21 19:02 Crossmatch See Detail 10/23/21 19:02 Impressions Chest X-Ray 10/23/21 18:56 XR chest 1V portable HISTORY: 66 years-old Female weakness acute weakness COMPARISON: Chest radiograph 10/07/2021. TECHNIQUE: Portable AP view of the chest FINDINGS: Cardiac silhouette is enlarged. Prior median sternotomy. No pneumothorax, pleur al effusion, airspace consolidation or overt pulmonary edema. Degenerative changes of the shoulders and spine. Sigmoidal thoracolumbar scoliosis. IMPRESSION: No acute process. ACT 112: Negative or not required by law. The above report was generated using voice recognition software. It may contain grammatical, syntax or spelling errors. Electronically signed by: Tanmay Solano M.D. 10/23/2021 7:34 PM Abdomen/Pelvis CTA 10/23/21 20:10 CT angio abdomen pelvis w con CLINICAL HISTORY: 66 years-old Female with GI Bleed s/p colonoscopy, extravasation acute GI bleed after colonoscopy. Recent colonoscopy with polyp removal and subsequent bleeding. COMPARISON STUDY: KUB 10/07/2021 TECHNIQUE: Following the IV administration of 115 cc of Optiray, CT angiogram of the abdomen and pelvis was performed from the lung bases the proximal femora. Images are reviewed in the axial, sagittal, and coronal planes. 3-D MIPS images are created and assessed. All measurements were obtained according to NASCET criteria. IV contrast was administered without complication. A dose lowering technique was utilized adhering to the principles of ALARA. CT DOSE: 307.17 mGy.cm FINDINGS: CT ABDOMEN/PELVIS: Cardiomegaly. Prior median sternotomy. Prosthetic aortic valve. Mild subsegmental bibasilar atelectasis. No pneumatosis or pneumoperitoneum. The spleen, pancreas and adrenal glands are unremarkable. Cholelithiasis with equivocal wall thickening of the gallbladder. Unremarkable liver. Symmetric enhancement of the kidneys without hydronephrosis. Urinary bladder wall thickening with partial distention. Unremarkable uterus and adnexa. The postmenopausal endometrium measures within the upper limits of normal. No lymphadenopathy. No bowel obstruction. Biopsy clips of the descending colon. Moderate fecal retention. Embolization coils are noted along the mid aspect of the ascending colon. There is moderate focal wall thickening with mucosal hyperemia and pericolonic stranding of the colon adjacent to the coils with mild luminal narrowing. The appendix is not diagnostically visualized. No CT evidence of acute appendicitis. Unremarkable soft tissues. There is no acute fracture. Degenerative changes of the spine, pelvis and hips. Lumbar levoscoliosis. CTA: No significant atherosclerosis. The abdominal aorta, iliac and imaged femoral arteries are patent. The celiac trunk, superior and inferior mesenteric and renal arteries are patent. No active extravasation identified involving the colon at the site of embolization. IMPRESSION: 1. Surgical clips of the colon are noted. Additionally, there are embolization coils adjacent to the mid transverse colon. Adjacent to the coils, there is focal circumferential wall thickening with mucosal hyperemia and pericolonic stranding involving the ascending colon resulting in mild luminal narrowing without obstruction. Findings are suggestive of a nonspecific colitis or could be secondary to the reported recent colonic hemorrhage. 2. Unremarkable CTA. No evidence of active extravasation. 3. Moderate fecal retention. 4. Additional findings as above. ACT 112: Negative or not required by law. The above report was generated using voice recognition software. It may contain grammatical, syntax or spelling errors. Electronically signed by: Tanmay Solano M.D. 10/23/2021 9:22 PM
[2021-10-25 18:41] LABS: Partial Thromboplastin Ratio 1.3; Partial Thromboplastin Time 34.7 Seconds (21.0-31.0)
[2021-10-25 19:11] LABS: Basophils # (auto) 0.05 K/uL (0-0.2); Basophils % (auto) 0.9 %; Eosinophils # (auto) 0.15 K/uL (0-0.50); Eosinophils % (auto) 2.7 %; Hematocrit (blood only) 30.7 % (34.1-44.9); Hemoglobin 9.9 g/dl (12.0-16.0); Immature Granulocytes # (auto) 0.02 K/uL (0.00-0.02); Immature Granulocytes % (auto) 0.4 %; Lymphocytes # (auto) 1.22 K/uL (1.2-3.4); Lymphocytes % (auto) 22.2 %; Mean Corpuscular Hemoglobin 28.9 pg (25.0-34.0); Mean Corpuscular Hgb Conc 32.2 g/dL (32.0-36.0); Mean Corpuscular Volume 89.5 fL (80.0-100.0); Mean Platelet Volume 9.4 fL (9.4-12.3); Monocytes # (auto) 0.46 K/uL (0.24-0.82); Monocytes % (auto) 8.4 %; Neutrophils % (auto) 65.4 %; Platelet Count 454 K/uL (130-400); RDW Coefficient of Variation 16.9 % (11.5-14.5); RDW Standard Deviation 54.3 fL (36.4-46.3); Red Blood Count 3.43 M/uL (3.93-5.22)
[2021-10-25] MEDS ORDERED: HEPARIN SOD (PORCINE) 1000 UNIT/ML IV ONE (19:30)
[2021-10-25] MEDS: ROSUVASTATIN CALCIUM 20 MG TAB PO SCH (20:57)
[2021-10-26 03:42] LABS: Basophils # (auto) 0.07 K/uL (0-0.2); Basophils % (auto) 1.2 %; Eosinophils # (auto) 0.23 K/uL (0-0.50); Eosinophils % (auto) 3.8 %; Hematocrit (blood only) 28.8 % (34.1-44.9); Hemoglobin 9.5 g/dl (12.0-16.0); Immature Granulocytes # (auto) 0.04 K/uL (0.00-0.02); Immature Granulocytes % (auto) 0.7 %; Lymphocytes # (auto) 1.89 K/uL (1.2-3.4); Lymphocytes % (auto) 31.4 %; Mean Corpuscular Hemoglobin 29.4 pg (25.0-34.0); Mean Corpuscular Volume 89.2 fL (80.0-100.0); Monocytes # (auto) 0.53 K/uL (0.24-0.82); Monocytes % (auto) 8.8 %; Neutrophils # (auto) 3.25 K/uL (1.4-6.5); Neutrophils % (auto) 54.1 %; Platelet Count 393 K/uL (130-400); RDW Coefficient of Variation 16.7 % (11.5-14.5); Red Blood Count 3.23 M/uL (3.93-5.22); White Blood Count 6.01 K/ul (4.8-10.8)
[2021-10-26 04:05] LABS: Albumin Globulin Ratio 1.7 (0.9-2); Albumin Level 3.3 gm/dl (3.4-5.0); BUN Creatinine Ratio 9.2 (10-20); Bilirubin,Total 0.6 mg/dl (0.2-1.0); Calcium 8.5 mg/dl (8.5-10.1); Creatinine Clr Calc Pharmacy 86.4 ml/min; Est GFR (African American) 108.7 ml/min; Est GFR (Non-African American) 93.8 ml/min; Potassium 3.5 mmol/L (3.5-5.1); Total Protein 5.3 gm/dl (6.0-8.3)
[2021-10-26 04:10] LABS: INR 1.1 (0.9-1.1); Partial Thromboplastin Ratio 1.9; Prothrombin Time 11.6 Seconds (9.0-12.0)
[2021-10-26 04:16] LABS: Partial Thromboplastin Time 52.4 Seconds (21.0-31.0)
[2021-10-26] MEDS: POLYETHYLENE (MIRALAX) 17 GM PACK PO SCH (09:11)
[2021-10-26] MEDS: METOPROLOL TARTRATE 25 MG TAB PO SCH ×2 (09:11→20:53)
[2021-10-26] MEDS: MULTIVITAMIN TAB PO SCH (09:11)
[2021-10-26] MEDS: HEPARIN SODIUM/DEXTROSE 25,000 UNITS/500 ML BAG IV SCH ×2 (10:22→16:15)
--- NOTE | 2021-10-26 13:01 | Cardiology Progress Note ---
Date of Service October 26, 2021 Assessment & Plan (1) S/P aortic valve replacement: (2) Chronic anticoagulation: (3) Lower GI bleed: (4) Post-polypectomy bleeding: Plan Reviewed risks of recurrent GI bleeding versus risk of thrombosis/cerebrovascular accident as it relates to her mechanical valve. Continue IV heparin bridging. Restart warfarin today, 5mg. IV heparin bridging preferred to Lovenox given recent recurrent lower GI bleeding. As per gastroenterology consultation, if bleeding recurs, patient will require transfer to tertiary care facility. Admission and Anticipated Discharge Date Admission Date: October 24, 2021 Subjective Patient seen exam at the bedside. Feeling well from a cardiovascular perspective. IV heparin added yesterday. Denies recurrent signs/symptoms of lower GI blood loss. Hemoglobin remained stable. No chest pain or shortness of breath. Review of Systems 2 Review of Systems: All systems reviewed & are unremarkable except as noted in Subjective Physical Exam Constitutional: well developed and well nourished; no acute distress Respiratory: normal respiratory effort; no respiratory distress, no labored breathing and no retractions Auscultation: no crackles, no rales, no rhonchi and no wheezes Cardiovascular: Rate/Rhythm: regular rate and regular rhythm Heart Sounds: normal S1, normal S2 and + murmur (2/6 systolic ejection murmur heard best at the base) Vessels: no JVD and no carotid bruit Extremities: no edema Gastrointestinal (Abdomen): Inspection/Auscultation: abdomen normal to inspection and normal bowel sounds; abdomen not distended Percussion/Palpation: abdomen soft; abdomen nontender, no guarding and abdomen not rigid Neurologic: CN's II-XI intact bilaterally and moves all extremities; no focal motor deficits Results & Data ([facility]) Vital Signs (Past 12 Hours) Vital Signs Temp Pulse Pulse Resp BP Pulse Ox Pulse Ox 10/26/21 11:26 36.8 C 68 16 102/76 97 10/26/21 08:06 36.8 C 72 18 126/74 98 10/26/21 08:05 94 H 10/26/21 06:02 98 10/26/21 04:05 37.0 C 72 18 112/73 98 10/26/21 01:26 73 O2 Del Method O2 Del Method 10/26/21 11:26 Room Air 10/26/21 08:06 Room Air 10/26/21 08:05 10/26/21 06:02 Room Air 10/26/21 04:05 Room Air 10/26/21 01:26
--- NOTE | 2021-10-26 15:55 | Gastroenterology Progress Note ---
Date of Service October 26, 2021 Assessment & Plan (1) Post-polypectomy bleeding: Plan: Post polypectomy bleeding also post IR coil embolization. Anticoagulated for mechanical heart valve. Currently hemoglobin is stable. Blood in her bowel movement today likely from prior bleeding in the last 24 hours but not actively bleeding. Would continue: MiraLAX 17 g daily, regular diet. Anticoagulation per cardiology. GI will sign off. If further GI bleeding and drop in hemoglobin hematocrit will consider transfer to [facility]. Admission and Anticipated Discharge Date Admission Date: October 24, 2021 Supervising Physician Co-Signing Physician Notes I have personally seen and examined the patient with FELIX Meneses. Her note reflects my exam and findings. I agree with her impression and plan. No signs of ongoing GI bleeding. Stable for a GI perspective. Discussed with patient and at bedside. Isiah Taylor M.D. Subjective 66 female admitted for rectal bleeding. Had undergone a endoscopic removal of a 4 cm colon polyp a few weeks ago. Then had bleeding and underwent coil embolization at [facility]. Again did well for few days then had another episode of a small amount of red rectal bleeding and presented here. Passed 1 dark red formed bowel movement this morning. No abdominal pain. Hemoglobin 7.0. Received 2 units of blood today 9.5. Review of Systems Review of Systems: ROS: Gen: Denies weakness, fevers, weight loss Eyes: No eye redness, or pain, no recent vision changes Resp: No SOB, no cough Cardio: No palpitations/irregular beats, no chest pain GI: No abdominal pain, no nausea/vomiting : Denies pain on urination Skin: No jaundice, itching or new rashes Physical Exam 2 Constitutional: WD/WN, vitals as above Eyes: PERRL, conjunctivae normal, anicteric sclerae ENMT: external ear and nose normal, oropharynx normal Neck: trachea midline, no thyromegaly Respiratory: normal respiratory effort, lungs clear to auscultation Cardiovascular: RRR, no murmur, no edema Gastrointestinal (Abdomen): normal bowel sounds, soft, nontender, no hepatosplenomegaly Skin: no rashes, warm and dry Neurologic: PERRL, EOMI, accommodation nl, no face palsy, no dysarthria Psychiatric: A+Ox3, euthymic affect Lymphatic: no cervical or axillary lymphadenopathy Results & Data ([facility]) Vital Signs (Past 12 Hours) Vital Signs Temp Pulse Pulse Resp BP Pulse Ox Pulse Ox 10/26/21 11:26 36.8 C 68 16 102/76 97 10/26/21 08:06 36.8 C 72 18 126/74 98 10/26/21 08:05 94 H 10/26/21 06:02 98 10/26/21 04:05 37.0 C 72 18 112/73 98 O2 Del Method O2 Del Method 10/26/21 11:26 Room Air 10/26/21 08:06 Room Air 10/26/21 08:05 10/26/21 06:02 Room Air 10/26/21 04:05 Room Air Laboratory Results WBC 6.0, Hb 9.5, HCT 28.8, PLT S393, INR 1.1, NA 140, K3.5, CL 109, CO2 26, BUN 6, CR 0.6. Diagnostic Findings CTA angiogram 10/23/2021: 1. Surgical clips of the colon are noted. Additionally, there are embolization coils adjacent to the mid transverse colon. Adjacent to the coils, there is focal circumferential wall thickening with mucosal hyperemia and pericolonic stranding involving the ascending colon resulting in mild luminal narrowing without obstruction. Findings are suggestive of a nonspecific colitis or could be secondary to the reported recent colonic hemorrhage. 2. Unremarkable CTA. No evidence of active extravasation. 3. Moderate fecal retention. 4. Additional findings as above.
[2021-10-26] MEDS: WARFARIN SOD 5 MG TAB PO SCH (16:14)
[2021-10-26] MEDS: ROSUVASTATIN CALCIUM 20 MG TAB PO SCH (20:53)
--- NOTE | 2021-10-26 21:30 | Hospitalist Progress Note ---
Date of Service October 26, 2021 Assessment & Plan (1) Lower GI bleed: (2) H/O mechanical aortic valve replacement: (3) Anemia: Plan Patient is a 66-year-old female with past medical history of AVR s/p mechanical prosthesis ( [employer] Mechanical valve and bovine pericardial root enlargement), hypertension, recent colonoscopy with post-polypectomy syndrome requiring transfer to [place] for IR embolization ( Discharged on 10/12 with Hb of 8.7) presented with episode of bloody bowel movement with blood clot 3 days prior to the admission. She presented with hemoglobin of 7. She was transfused 2 units of packed RBC. CT angio abdomen was done which did not show active bleeding. Patient is admitted to the telemetry floor for further care. Lower GI bleed likely secondary to Ischemic Colitis Acute blood loss anemia Mechanical aortic valve on warfarin status post vitamin K Hemoglobin on presentation7.0; received 2 units of blood; hemoglobin improved to 9. CBC since the hospitalization is stable. CT angio abdomenno active bleeding, nonspecific colitis seen. Plan; Continue on iv heparin. Warfarin started today at 5mg once daily - Monitor for sign of Lower GI bleed. If rebleeds, patient will require transfer to higher center. Chronic conditions: 3. Hypertension: On metoprolol, monitor. 4. Hyperlipidemia: On statin. 5. Deep venous thrombosis prophylaxis:IV heparin CODE STATUS full Admission and Anticipated Discharge Date Admission Date: October 24, 2021 Subjective Patient is comfortable; not in any distress. No bowel movement in the morning. Review of Systems Review of Systems: All systems reviewed & are unremarkable except as noted in Subjective Physical Exam Physical Exam: GENERAL: The patient is of moderate build, not in acute distress. HEENT: Pupils equal, round, and reactive to light. Oral mucosa moist. NECK: No JVD. No neck masses. CARDIOVASCULAR: S1 and S2 heard. mechanical sound heard in aortic area. RESPIRATORY SYSTEM: Normal AP diameter. No accessory muscle use. No wheezing or crackles. ABDOMEN: Soft, bowel sounds present, nontender, no distention. CENTRAL NERVOUS SYSTEM: Cranial nerves II through XII are grossly intact, nonfocal. EXTREMITIES: No edema, no erythema. Results & Data Results & Data ([facility]) Vital Signs (Past 12 Hours) Vital Signs Temp Pulse Pulse Pulse Resp BP Pulse Ox 10/26/21 19:44 36.8 C 76 18 129/77 97 10/26/21 17:49 78 10/26/21 15:59 37 C 79 18 110/56 L 96 10/26/21 11:26 36.8 C 68 16 102/76 97 O2 Del Method 10/26/21 19:44 Room Air 10/26/21 17:49 10/26/21 15:59 Room Air 10/26/21 11:26 Room Air Laboratory Results Laboratory Results WBC 6.01 K/ul (4.8-10.8) 10/26/21 03:21 RBC 3.23 M/uL (3.93-5.22) L 10/26/21 03:21 Hgb 9.5 g/dl (12.0-16.0) L 10/26/21 03:21 POC Hgb 6.8 g/dl (12.0-16.0) L* 10/23/21 19:07 Hct 28.8 % (34.1-44.9) L 10/26/21 03:21 POC Hct 20 % (37-47) L* 10/23/21 19:07 MCV 89.2 fL (80.0-100.0) 10/26/21 03:21 MCH 29.4 pg (25.0-34.0) 10/26/21 03:21 MCHC 33.0 g/dL (32.0-36.0) 10/26/21 03:21 RDW Std Deviation 53.0 fL (36.4-46.3) H 10/26/21 03:21 RDW Coeff of Kristy 16.7 % (11.5-14.5) H 10/26/21 03:21 Plt Count 393 K/uL (130-400) 10/26/21 03:21 MPV 9.0 fL (9.4-12.3) L 10/26/21 03:21 Immature Gran % (Auto) 0.7 % 10/26/21 03:21 Neut % (Auto) 54.1 % 10/26/21 03:21 Lymph % (Auto) 31.4 % 10/26/21 03:21 [place] % (Auto) 8.8 % 10/26/21 03:21 Eos % (Auto) 3.8 % 10/26/21 03:21 Baso % (Auto) 1.2 % 10/26/21 03:21 Neut # (Auto) 3.25 K/uL (1.4-6.5) 10/26/21 03:21 Lymph # (Auto) 1.89 K/uL (1.2-3.4) 10/26/21 03:21 [place] # (Auto) 0.53 K/uL (0.24-0.82) 10/26/21 03:21 Eos # (Auto) 0.23 K/uL (0-0.50) 10/26/21 03:21 Baso # (Auto) 0.07 K/uL (0-0.2) 10/26/21 03:21 Immature Gran # (Auto) 0.04 K/uL (0.00-0.02) H 10/26/21 03:21 Polychromasia 1+ 10/23/21 19:02 Anisocytosis Present 10/23/21 19:02 PT 11.6 Seconds (9.0-12.0) 10/26/21 03:20 INR 1.1 (0.9-1.1) 10/26/21 03:20 APTT 52.4 Seconds (21.0-31.0) H* 10/26/21 03:20 PTT Ratio 1.9 10/26/21 03:20 POC Sodium 138 mmol/L (135-144) 10/23/21 19:07 Sodium 140 mmol/L (136-145) 10/26/21 03:21 POC Potassium 3.8 mmol/L (3.3-5.0) 10/23/21 19:07 Potassium 3.5 mmol/L (3.5-5.1) 10/26/21 03:21 POC Chloride 103 mmol/L (101-112) 10/23/21 19:07 Chloride 109 mmol/L (98-107) H 10/26/21 03:21 Carbon Dioxide 26 mmol/L (21-32) 10/26/21 03:21 POC Total CO2 25 mmol/L (24-31) 10/23/21 19:07 Anion Gap 5 (3-11) 10/26/21 03:21 POC Anion Gap 14.0 mmol/L (16-25) L 10/23/21 19:07 POC BUN 10 mg/dl (7-18) 10/23/21 19:07 BUN 6 mg/dl (6-23) 10/26/21 03:21 Creatinine 0.65 mg/dl (0.6-1.2) 10/26/21 03:21 POC Creatinine 0.6 mg/dl (0.6-1.3) 10/23/21 19:07 Est Cr Clr Drug Dosing 86.4 ml/min 10/26/21 03:21 Est GFR ( Amer) 108.7 ml/min 10/26/21 03:21 Est GFR (Non-Af Amer) 93.8 ml/min 10/26/21 03:21 BUN/Creatinine Ratio 9.2 (10-20) L 10/26/21 03:21 Glucose 96 mg/dl (70-99(Fasting)) 10/26/21 03:21 POC Glucose (other) 108 mg/dl (70-99) H 10/23/21 19:07 Calcium 8.5 mg/dl (8.5-10.1) 10/26/21 03:21 POC Ioniz Calcium Emy 1.15 mmol/l (1.12-1.32) 10/23/21 19:07 Magnesium 1.9 mg/dl (1.7-2.4) 10/24/21 04:42 Total Bilirubin 0.6 mg/dl (0.2-1.0) 10/26/21 03:21 AST 26 U/L (13-39) 10/26/21 03:21 ALT 30 U/L (7-52) 10/26/21 03:21 Alkaline Phosphatase 61 U/L (34-104) 10/26/21 03:21 Total Protein 5.3 gm/dl (6.0-8.3) L 10/26/21 03:21 Albumin 3.3 gm/dl (3.4-5.0) L 10/26/21 03:21 Globulin 2.0 gm/dl (2.5-4.0) L 10/26/21 03:21 Albumin/Globulin Ratio 1.7 (0.9-2) 10/26/21 03:21 TSH 2.975 uIu/ml (0.300-4.500) 10/23/21 19:07 Urine Color Yellow 10/24/21 00:47 Urine Appearance Clear (Clear) 10/24/21 00:47 Urine pH 6.0 (4.5-7.5) 10/24/21 00:47 Ur Specific [place] 1.006 (1.000-1.030) 10/24/21 00:47 Urine Protein Negative (Negative) 10/24/21 00:47 Urine Glucose (UA) Negative (Negative) 10/24/21 00:47 Urine Ketones Negative (Negative) 10/24/21 00:47 Urine Blood Negative (Negative) 10/24/21 00:47 Urine Nitrite Negative (Negative) 10/24/21 00:47 Urine Bilirubin Negative (Negative) 10/24/21 00:47 Urine Urobilinogen Negative (Negative) 10/24/21 00:47 Ur Leukocyte Esterase Negative (Negative) 10/24/21 00:47 SARS-CoV-2, RNA, NAAT NEGATIVE (NEGATIVE) 10/24/21 00:47 Blood Type B Positive 10/23/21 19:02 Antibody Screen NEGATIVE 10/23/21 19:02 Crossmatch See Detail 10/23/21 19:02 Impressions Chest X-Ray 10/23/21 18:56 XR chest 1V portable HISTORY: 66 years-old Female weakness acute weakness COMPARISON: Chest radiograph 10/07/2021. TECHNIQUE: Portable AP view of the chest FINDINGS: Cardiac silhouette is enlarged. Prior median sternotomy. No pneumothorax, pleural effusion, airspace consolidation or overt pulmonary edema. Degenerative changes of the shoulders and spine. Sigmoidal thoracolumbar scoliosis. IMPRESSION: No acute process. ACT 112: Negative or not required by law. The above report was generated using voice recognition software. It may contain grammatical, syntax or spelling errors. Electronically signed by: Tanmay Solano M.D. 10/23/2021 7:34 PM Abdomen/Pelvis CTA 10/23/21 20:10 CT angio abdomen pelvis w con CLINICAL HISTORY: 66 years-old Female with GI Bleed s/p colonoscopy, extravasation acute GI bleed after colonoscopy. Recent colonoscopy with polyp removal and subsequent bleeding. COMPARISON STUDY: KUB 10/07/2021 TECHNIQUE: Following the IV administration of 115 cc of Optiray, CT angiogram of the abdomen and pelvis was performed from the lung bases the proximal femora. Images are reviewed in the axial, sagittal, and coronal planes. 3-D MIPS images are created and assessed. All measurements were obtained according to NASCET criteria. IV contrast was administered without complication. A dose lowering technique was utilized adhering to the principles of ALARA. CT DOSE: 307.17 mGy.cm FINDINGS: CT ABDOMEN/PELVIS: Cardiomegaly. Prior median sternotomy. Prosthetic aortic valve. Mild subsegmental bibasilar atelectasis. No pneumatosis or pneumoperitoneum. The spleen, pancreas and adrenal glands are unremarkable. Cholelithiasis with equivocal wall thickening of the gallbladder. Unremarkable liver. Symmetric enhancement of the kidneys without hydronephrosis. Urinary bladder wall thickening with partial distention. Unremarkable uterus and adnexa. The postmenopausal endometrium measures within the upper limits of normal. No lymphadenopathy. No bowel obstruction. Biopsy clips of the descending colon. Moderate fecal retention. Embolization coils are noted along the mid aspect of the ascending colon. There is moderate focal wall thickening with mucosal hyperemia and pericolonic stranding of the colon adjacent to the coils with mild luminal narrowing. The appendix is not diagnostically visualized. No CT evidence of acute appendicitis. Unremarkable soft tissues. There is no acute fracture. Degenerative changes of the spine, pelvis and hips. Lumbar levoscoliosis. CTA: No significant atherosclerosis. The abdominal aorta, iliac and imaged femoral arteries are patent. The celiac trunk, superior and inferior mesenteric and renal arteries are patent. No active extravasation identified involving the colon at the site of embolization. IMPRESSION: 1. Surgical clips of the colon are noted. Additionally, there are embolization coils adjacent to the mid transverse colon. Adjacent to the coils, there is focal circumferential wall thickening with mucosal hyperemia and pericolonic stranding involving the ascending colon resulting in mild luminal narrowing without obstruction. Findings are suggestive of a nonspecific colitis or could be secondary to the reported recent colonic hemorrhage. 2. Unremarkable CTA. No evidence of active extravasation. 3. Moderate fecal retention. 4. Additional findings as above. ACT 112: Negative or not required by law. The above report was generated using voice recognition software. It may contain grammatical, syntax or spelling errors. Electronically signed by: Tanmay Solano M.D. 10/23/2021 9:22 PM
[2021-10-27 06:26] LABS: Basophils # (auto) 0.06 K/uL (0-0.2); Basophils % (auto) 1.1 %; Eosinophils # (auto) 0.21 K/uL (0-0.50); Eosinophils % (auto) 3.9 %; Hematocrit (blood only) 28.7 % (34.1-44.9); Hemoglobin 9.4 g/dl (12.0-16.0); Immature Granulocytes # (auto) 0.02 K/uL (0.00-0.02); Immature Granulocytes % (auto) 0.4 %; Lymphocytes # (auto) 1.49 K/uL (1.2-3.4); Lymphocytes % (auto) 27.6 %; Mean Corpuscular Hemoglobin 29.6 pg (25.0-34.0); Mean Corpuscular Hgb Conc 32.8 g/dL (32.0-36.0); Mean Corpuscular Volume 90.3 fL (80.0-100.0); Mean Platelet Volume 9.3 fL (9.4-12.3); Monocytes # (auto) 0.52 K/uL (0.24-0.82); Monocytes % (auto) 9.6 %; Neutrophils % (auto) 57.4 %; Platelet Count 361 K/uL (130-400); RDW Coefficient of Variation 16.2 % (11.5-14.5); RDW Standard Deviation 53.2 fL (36.4-46.3); Red Blood Count 3.18 M/uL (3.93-5.22)
[2021-10-27 06:38] LABS: INR 1.2 (0.9-1.1); Prothrombin Time 12.2 Seconds (9.0-12.0)
[2021-10-27 06:44] LABS: Albumin Globulin Ratio 1.5 (0.9-2); Albumin Level 3.2 gm/dl (3.4-5.0); BUN Creatinine Ratio 13.6 (10-20); Bilirubin,Total 0.5 mg/dl (0.2-1.0); Calcium 8.6 mg/dl (8.5-10.1); Creatinine Clr Calc Pharmacy 95.7 ml/min; Est GFR (African American) 112.3 ml/min; Est GFR (Non-African American) 96.9 ml/min; Globulin 2.1 gm/dl (2.5-4.0); Potassium 3.8 mmol/L (3.5-5.1); Total Protein 5.3 gm/dl (6.0-8.3)
[2021-10-27] MEDS: METOPROLOL TARTRATE 25 MG TAB PO SCH ×2 (08:53→21:17)
[2021-10-27] MEDS: MULTIVITAMIN TAB PO SCH (08:53)
[2021-10-27] MEDS: POLYETHYLENE (MIRALAX) 17 GM PACK PO SCH (08:54)
[2021-10-27 10:59] LABS: Partial Thromboplastin Ratio 1.7
[2021-10-27 11:06] LABS: Partial Thromboplastin Time 45.9 Seconds (21.0-31.0)
--- NOTE | 2021-10-27 11:35 | Cardiology Progress Note ---
Date of Service October 27, 2021 Assessment & Plan (1) S/P aortic valve replacement: (2) Chronic anticoagulation: (3) Lower GI bleed: (4) Post-polypectomy bleeding: Plan Reviewed risks of recurrent GI bleeding versus risk of thrombosis/cerebrovascular accident as it relates to her mechanical valve. Continue IV heparin bridging. Warfarin restarted yesterday. INR is subtherapeutic. IV heparin bridging preferred to Lovenox given recent recurrent lower GI bleeding, however, patient prefers to return home as soon as possible. If there is no recurrent GI bleeding overnight, consider discharge tomorrow with Lovenox bridging therapy. She will require close follow-up with her primary care physician who manages her warfarin anticoagulation in the outpatient setting. As per gastroenterology consultation, if bleeding recurs, patient will require transfer to tertiary care facility. Admission and Anticipated Discharge Date Admission Date: October 24, 2021 Subjective Patient feeling well from a cardiovascular perspective. Denies signs/symptoms of GI blood loss. Hemoglobin remained stable. No chest pain or shortness of breath. Anxious for discharge. Review of Systems Review of Systems: All systems reviewed & are unremarkable except as noted in Subjective Physical Exam Constitutional: well developed and well nourished; no acute distress Respiratory: normal respiratory effort; no respiratory distress, no labored breathing and no retractions Auscultation: no crackles, no rales, no rhonchi and no wheezes Cardiovascular: Rate/Rhythm: regular rate and regular rhythm Heart Sounds: normal S1, normal S2 and + murmur (2/6 systolic ejection murmur heard best at the base) Vessels: no JVD and no carotid bruit Extremities: no edema Gastrointestinal (Abdomen): Inspection/Auscultation: abdomen normal to inspection and normal bowel sounds; abdomen not distended Percussion/Palpation: abdomen soft; abdomen nontender, no guarding and abdomen not rigid Neurologic: CN's II-XI intact bilaterally and moves all extremities; no focal motor deficits Results & Data ([facility]) Vital Signs (Past 12 Hours) Vital Signs Temp Pulse Pulse Resp BP Pulse Ox O2 Del Method 10/27/21 11:32 37.1 C 70 18 106/55 L 98 Room Air 10/27/21 07:57 36.9 C 71 19 107/53 L 97 Room Air 10/27/21 07:35 72 10/27/21 02:36 37.0 C 70 18 101/50 L 97 Room Air 10/27/21 00:20 66
--- NOTE | 2021-10-27 15:01 | Hospitalist Progress Note ---
Date of Service October 27, 2021 Assessment & Plan (1) Lower GI bleed: (2) H/O mechanical aortic valve replacement: (3) Anemia: Plan Patient is a 66-year-old female with past medical history of AVR s/p mechanical prosthesis ( [employer] [place] Mechanical valve and bovine pericardial root enlargement), hypertension, recent colonoscopy with post-polypectomy syndrome requiring transfer to [place] for IR embolization ( Discharged on 10/12 with Hb of 8.7) presented with episode of bloody bowel movement with blood clot 3 days prior to the admission. She presented with hemoglobin of 7. She was transfused 2 units of packed RBC. CT angio abdomen was done which did not show active bleeding. Patient is admitted to the telemetry floor for further care. Lower GI bleed likely secondary to Ischemic Colitis Acute blood loss anemia Mechanical aortic valve on warfarin status post vitamin K Hemoglobin on presentation7.0; received 2 units of blood; hemoglobin improved to 9. CBC since the hospitalization is stable. CT angio abdomenno active bleeding, nonspecific colitis seen. Patient is started on IV heparin and bridged with warfarin. Plan; Continue on iv heparin. Second day of warfarin 5 mg MG. We will see PT/INR tomorrow morning and adjust dosing based on it. -Patient has enough supply of Lovenox at home from her previous hospitalization. Plan to discharge home with Lovenox bridging if she continues to have a stable CBC. - Monitor for sign of Lower GI bleed. If rebleeds, patient will require transfer to higher center. Chronic conditions: 3. Hypertension: On metoprolol, monitor. 4. Hyperlipidemia: On statin. 5. Deep venous thrombosis prophylaxis:IV heparin CODE STATUS full Admission and Anticipated Discharge Date Admission Date: October 24, 2021 Subjective Patient seen and examined at bedside. Comfortable; not in any distress. Hb stable since initial tranfusion Review of Systems Review of Systems: All systems reviewed & are unremarkable except as noted in Subjective Physical Exam Physical Exam: GENERAL: The patient is of moderate build, not in acute distress. HEENT: Pupils equal, round, and reactive to light. Oral mucosa moist. NECK: No JVD. No neck masses. CARDIOVASCULAR: S1 and S2 heard. mechanical sound heard in aortic area. RESPIRATORY SYSTEM: Normal AP diameter. No accessory muscle use. No wheezing or crackles. ABDOMEN: Soft, bowel sounds present, nontender, no distention. CENTRAL NERVOUS SYSTEM: Cranial nerves II through XII are grossly intact, nonfocal. EXTREMITIES: No edema, no erythema. Results & Data Results & Data ([facility]) Vital Signs (Past 12 Hours) Vital Signs Temp Pulse Pulse Resp BP Pulse Ox O2 Del Method 10/27/21 11:32 37.1 C 70 18 106/55 L 98 Room Air 10/27/21 07:57 36.9 C 71 19 107/53 L 97 Room Air 10/27/21 07:35 72 Laboratory Results Laboratory Results WBC 5.40 K/ul (4.8-10.8) 10/27/21 05:57 RBC 3.18 M/uL (3.93-5.22) L 10/27/21 05:57 Hgb 9.4 g/dl (12.0-16.0) L 10/27/21 05:57 POC Hgb 6.8 g/dl (12.0-16.0) L* 10/23/21 19:07 Hct 28.7 % (34.1-44.9) L 10/27/21 05:57 POC Hct 20 % (37-47) L* 10/23/21 19:07 MCV 90.3 fL (80.0-100.0) 10/27/21 05:57 MCH 29.6 pg (25.0-34.0) 10/27/21 05:57 MCHC 32.8 g/dL (32.0-36.0) 10/27/21 05:57 RDW Std Deviation 53.2 fL (36.4-46.3) H 10/27/21 05:57 RDW Coeff of Kristy 16.2 % (11.5-14.5) H 10/27/21 05:57 Plt Count 361 K/uL (130-400) 10/27/21 05:57 MPV 9.3 fL (9.4-12.3) L 10/27/21 05:57 Immature Gran % (Auto) 0.4 % 10/27/21 05:57 Neut % (Auto) 57.4 % 10/27/21 05:57 Lymph % (Auto) 27.6 % 10/27/21 05:57 [place] % (Auto) 9.6 % 10/27/21 05:57 Eos % (Auto) 3.9 % 10/27/21 05:57 Baso % (Auto) 1.1 % 10/27/21 05:57 Neut # (Auto) 3.10 K/uL (1.4-6.5) 10/27/21 05:57 Lymph # (Auto) 1.49 K/uL (1.2-3.4) 10/27/21 05:57 [place] # (Auto) 0.52 K/uL (0.24-0.82) 10/27/21 05:57 Eos # (Auto) 0.21 K/uL (0-0.50) 10/27/21 05:57 Baso # (Auto) 0.06 K/uL (0-0.2) 10/27/21 05:57 Immature Gran # (Auto) 0.02 K/uL (0.00-0.02) 10/27/21 05:57 Polychromasia 1+ 10/23/21 19:02 Anisocytosis Present 10/23/21 19:02 PT 12.2 Seconds (9.0-12.0) H 10/27/21 05:57 INR 1.2 (0.9-1.1) H 10/27/21 05:57 APTT 45.9 Seconds (21.0-31.0) H* 10/27/21 09:52 PTT Ratio 1.7 10/27/21 09:52 POC Sodium 138 mmol/L (135-144) 10/23/21 19:07 Sodium 142 mmol/L (136-145) 10/27/21 05:57 POC Potassium 3.8 mmol/L (3.3-5.0) 10/23/21 19:07 Potassium 3.8 mmol/L (3.5-5.1) 10/27/21 05:57 POC Chloride 103 mmol/L (101-112) 10/23/21 19:07 Chloride 110 mmol/L (98-107) H 10/27/21 05:57 Carbon Dioxide 28 mmol/L (21-32) 10/27/21 05:57 POC Total CO2 25 mmol/L (24-31) 10/23/21 19:07 Anion Gap 4 (3-11) 10/27/21 05:57 POC Anion Gap 14.0 mmol/L (16-25) L 10/23/21 19:07 POC BUN 10 mg/dl (7-18) 10/23/21 19:07 BUN 8 mg/dl (6-23) 10/27/21 05:57 Creatinine 0.59 mg/dl (0.6-1.2) L 10/27/21 05:57 POC Creatinine 0.6 mg/dl (0.6-1.3) 10/23/21 19:07 Est Cr Clr Drug Dosing 95.7 ml/min 10/27/21 05:57 Est GFR ( Amer) 112.3 ml/min 10/27/21 05:57 Est GFR (Non-Af Amer) 96.9 ml/min 10/27/21 05:57 BUN/Creatinine Ratio 13.6 (10-20) 10/27/21 05:57 Glucose 102 mg/dl (70-99(Fasting)) H 10/27/21 05:57 POC Glucose (other) 108 mg/dl (70-99) H 10/23/21 19:07 Calcium 8.6 mg/dl (8.5-10.1) 10/27/21 05:57 POC Ioniz Calcium Emy 1.15 mmol/l (1.12-1.32) 10/23/21 19:07 Magnesium 1.9 mg/dl (1.7-2.4) 10/24/21 04:42 Total Bilirubin 0.5 mg/dl (0.2-1.0) 10/27/21 05:57 AST 20 U/L (13-39) 10/27/21 05:57 ALT 25 U/L (7-52) 10/27/21 05:57 Alkaline Phosphatase 56 U/L (34-104) 10/27/21 05:57 Total Protein 5.3 gm/dl (6.0-8.3) L 10/27/21 05:57 Albumin 3.2 gm/dl (3.4-5.0) L 10/27/21 05:57 Globulin 2.1 gm/dl (2.5-4.0) L 10/27/21 05:57 Albumin/Globulin Ratio 1.5 (0.9-2) 10/27/21 05:57 TSH 2.975 uIu/ml (0.300-4.500) 10/23/21 19:07 Urine Color Yellow 10/24/21 00:47 Urine Appearance Clear (Clear) 10/24/21 00:47 Urine pH 6.0 (4.5-7.5) 10/24/21 00:47 Ur Specific [place] 1.006 (1.000-1.030) 10/24/21 00:47 Urine Protein Negative (Negative) 10/24/21 00:47 Urine Glucose (UA) Negative (Negative) 10/24/21 00:47 Urine Ketones Negative (Negative) 10/24/21 00:47 Urine Blood Negative (Negative) 10/24/21 00:47 Urine Nitrite Negative (Negative) 10/24/21 00:47 Urine Bilirubin Negative (Negative) 10/24/21 00:47 Urine Urobilinogen Negative (Negative) 10/24/21 00:47 Ur Leukocyte Esterase Negative (Negative) 10/24/21 00:47 SARS-CoV-2, RNA, NAAT NEGATIVE (NEGATIVE) 10/24/21 00:47 Blood Type B Positive 10/23/21 19:02 Antibody Screen NEGATIVE 10/23/21 19:02 Crossmatch See Detail 10/23/21 19:02 Impressions Chest X-Ray 10/23/21 18:56 XR chest 1V portable HISTORY: 66 years-old Female weakness acute weakness COMPARISON: Chest radiograph 10/07/2021. TECHNIQUE: Portable AP view of the chest FINDINGS: Cardiac silhouette is enlarged. Prior median sternotomy. No pneumothorax, pleural effusion, airspace consolidation or overt pulmonary edema. Degenerative changes of the shoulders and spine. Sigmoidal thoracolumbar scoliosis. IMPRESSION: No acute process. ACT 112: Negative or not required by law. The above report was generated using voice recognition software. It may contain grammatical, syntax or spelling errors. Electronically signed by: Tanmay Solano M.D. 10/23/2021 7:34 PM Abdomen/Pelvis CTA 10/23/21 20:10 CT angio abdomen pelvis w con CLINICAL HISTORY: 66 years-old Female with GI Bleed s/p colonoscopy, extravasation acute GI bleed after colonoscopy. Recent colonoscopy with polyp removal and subsequent bleeding. COMPARISON STUDY: KUB 10/07/2021 TECHNIQUE: Following the IV administration of 115 cc of Optiray, CT angiogram of the abdomen and pelvis was performed from the lung bases the proximal femora. Images are reviewed in the axial, sagittal, and coronal planes. 3-D MIPS images are created and assessed. All measurements were obtained according to NASCET criteria. IV contrast was administered without complication. A dose lowering technique was utilized adhering to the principles of ALARA. CT DOSE: 307.17 mGy.cm FINDINGS: CT ABDOMEN/PELVIS: Cardiomegaly. Prior median sternotomy. Prosthetic aortic valve. Mild subsegmental bibasilar atelectasis. No pneumatosis or pneumoperitoneum. The spleen, pancreas and adrenal glands are unremarkable. Cholelithiasis with equivocal wall thickening of the gallbladder. Unremarkable liver. Symmetric enhancement of the kidneys without hydronephrosis. Urinary bladder wall thickening with partial distention. Unremarkable uterus and adnexa. The postmenopausal endometrium measures within the upper limits of normal. No lymphadenopathy. No bowel obstruction. Biopsy clips of the descending colon. Moderate fecal retention. Embolization coils are noted along the mid aspect of the ascending colon. There is moderate focal wall thickening with mucosal hyperemia and pe ricolonic stranding of the colon adjacent to the coils with mild luminal narrowing. The appendix is not diagnostically visualized. No CT evidence of acute appendicitis. Unremarkable soft tissues. There is no acute fracture. Degenerative changes of the spine, pelvis and hips. Lumbar levoscoliosis. CTA: No significant atherosclerosis. The abdominal aorta, iliac and imaged femoral arteries are patent. The celiac trunk, superior and inferior mesenteric and renal arteries are patent. No active extravasation identified involving the colon at the site of embolization. IMPRESSION: 1. Surgical clips of the colon are noted. Additionally, there are embolization coils adjacent to the mid transverse colon. Adjacent to the coils, there is focal circumferential wall thickening with mucosal hyperemia and pericolonic stranding involving the ascending colon resulting in mild luminal narrowing without obstruction. Findings are suggestive of a nonspecific colitis or could be secondary to the reported recent colonic hemorrhage. 2. Unremarkable CTA. No evidence of active extravasation. 3. Moderate fecal retention. 4. Additional findings as above. ACT 112: Negative or not required by law. The above report was generated using voice recognition software. It may contain grammatical, syntax or spelling errors. Electronically signed by: Tanmay Solano M.D. 10/23/2021 9:22 PM
[2021-10-27 17:38] LABS: Partial Thromboplastin Ratio 1.7
[2021-10-27 17:41] LABS: Partial Thromboplastin Time 47.3 Seconds (21.0-31.0)
[2021-10-27] MEDS: WARFARIN SOD 5 MG TAB PO SCH (17:45)
[2021-10-27] MEDS: HEPARIN SODIUM/DEXTROSE 25,000 UNITS/500 ML BAG IV SCH (19:29)
[2021-10-27] MEDS: ROSUVASTATIN CALCIUM 20 MG TAB PO SCH (21:17)
[2021-10-28 07:55] LABS: Basophils # (auto) 0.05 K/uL (0-0.2); Eosinophils # (auto) 0.15 K/uL (0-0.50); Eosinophils % (auto) 3.1 %; Hematocrit (blood only) 29.8 % (34.1-44.9); Hemoglobin 9.8 g/dl (12.0-16.0); Immature Granulocytes # (auto) 0.03 K/uL (0.00-0.02); Immature Granulocytes % (auto) 0.6 %; Lymphocytes # (auto) 1.27 K/uL (1.2-3.4); Lymphocytes % (auto) 26.6 %; Mean Corpuscular Hemoglobin 29.8 pg (25.0-34.0); Mean Corpuscular Hgb Conc 32.9 g/dL (32.0-36.0); Mean Corpuscular Volume 90.6 fL (80.0-100.0); Mean Platelet Volume 9.2 fL (9.4-12.3); Monocytes # (auto) 0.45 K/uL (0.24-0.82); Monocytes % (auto) 9.4 %; Neutrophils # (auto) 2.83 K/uL (1.4-6.5); Neutrophils % (auto) 59.3 %; Platelet Count 356 K/uL (130-400); RDW Coefficient of Variation 15.9 % (11.5-14.5); RDW Standard Deviation 52.9 fL (36.4-46.3); Red Blood Count 3.29 M/uL (3.93-5.22); White Blood Count 4.78 K/ul (4.8-10.8)
[2021-10-28 08:25] LABS: Albumin Globulin Ratio 1.5 (0.9-2); Albumin Level 3.4 gm/dl (3.4-5.0); BUN Creatinine Ratio 16.7 (10-20); Bilirubin,Total 0.5 mg/dl (0.2-1.0); Creatinine Clr Calc Pharmacy 103.7 ml/min; Est GFR (African American) 115.6 ml/min; Est GFR (Non-African American) 99.7 ml/min; Globulin 2.3 gm/dl (2.5-4.0); Potassium 3.8 mmol/L (3.5-5.1); Total Protein 5.7 gm/dl (6.0-8.3)
[2021-10-28] MEDS: MULTIVITAMIN TAB PO SCH (09:02)
[2021-10-28] MEDS: METOPROLOL TARTRATE 25 MG TAB PO SCH (09:02)
[2021-10-28] MEDS: POLYETHYLENE (MIRALAX) 17 GM PACK PO SCH (09:02)
[2021-10-28 09:03] LABS: INR 1.2 (0.9-1.1); Partial Thromboplastin Ratio 1.9; Prothrombin Time 12.7 Seconds (9.0-12.0)
[2021-10-28 09:12] LABS: Partial Thromboplastin Time 52.4 Seconds (21.0-31.0)
--- NOTE | 2021-10-28 11:04 | Cardiology Progress Note ---
Date of Service October 28, 2021 Assessment & Plan (1) S/P aortic valve replacement: (2) Chronic anticoagulation: (3) Lower GI bleed: (4) Post-polypectomy bleeding: Plan No signs/symptoms of recurrent GI blood loss. INR remains subtherapeutic. Hemoglobin stable. Patient prefers to return home today with Lovenox bridging. Discussed risk versus benefit of continuing IV heparin versus transition to Lovenox. All questions answered to patient satisfaction. She will require close INR follow-up with her primary care physician on Tuesday. Follow-up with her outpatient mobile nurse, Dr. Hurtado and gastroenterology. Admission and Anticipated Discharge Date Admission Date: October 24, 2021 Subjective Patient seen examined the bedside. Feeling well from a cardiovascular perspective. No signs of recurrent GI blood loss. Requesting discharge if possible. Offers no complaints. Review of Systems Review of Systems: All systems reviewed & are unremarkable except as noted in Subjective Physical Exam Constitutional: well developed and well nourished; no acute distress Respiratory: normal respiratory effort; no respiratory distress, no labored breathing and no retractions Auscultation: no crackles, no rales, no rhonchi and no wheezes Cardiovascular: Rate/Rhythm: regular rate and regular rhythm Heart Sounds: normal S1, normal S2 and + murmur (2/6 systolic ejection murmur heard best at the base) Vessels: no JVD and no carotid bruit Extremities: no edema Gastrointestinal (Abdomen): Inspection/Auscultation: abdomen normal to inspection and normal bowel sounds; abdomen not distended Percussion/Palpation: abdomen soft; abdomen nontender, no guarding and abdomen not rigid Neurologic: CN's II-XI intact bilaterally and moves all extremities; no focal motor deficits Results & Data ([facility]) Vital Signs (Past 12 Hours) Vital Signs Temp Pulse Pulse Pulse Resp BP BP 10/28/21 07:32 36.8 C 71 18 106/68 10/28/21 07:09 65 10/28/21 03:11 36.8 C 70 18 98/55 L 10/27/21 23:36 68 Pulse Ox O2 Del Method 10/28/21 07:32 96 10/28/21 07:09 10/28/21 03:11 96 Room Air 10/27/21 23:36
[2021-10-28] MEDS ORDERED: ENOXAPARIN 1 MG/KG SQ SCH (11:15)
[2021-10-28] MEDS ORDERED: ENOXAPARIN 80 MG/0.8 ML SYR SQ SCH ×2 (11:15→11:30)
--- NOTE | 2021-10-28 13:08 | Hospitalist Progress Note ---
Date of Service October 28, 2021 Assessment & Plan (1) Lower GI bleed: (2) H/O mechanical aortic valve replacement: (3) Anemia: Plan Patient is a 66 yr female with H/O AVR s/p mechanical prosthesis ( [employer] [place] Mechanical valve and bovine pericardial root enlargement), hypertension, recent colonoscopy with post-polypectomy syndrome requiring transfer to [place] for IR embolization ( Discharged on 10/12 with Hb of 8.7) presented with episode of bloody bowel movement with blood clot 3 days prior to the admission. She presented with hemoglobin of 7. She was transfused 2 units of packed RBC[address] CT angio abdomen was done which did not show active bleeding. Post Polypectomy Lower GI bleed likely secondary to Ischemic Colitis Acute blood loss anemia Mechanical aortic valve on warfarin S/P vitamin K --ABD CTA:Surgical clips of the colon are noted. Additionally, there are embolization coils adjacent to the mid transverse colon. Adjacent to the coils, there is focal circumferential wall thickening with mucosal hyperemia and pericolonic stranding involving the ascending colon resulting in mild luminal narrowing without obstruction. Findings are suggestive of a nonspecific colitis or could be secondary to the reported recent colonic hemorrhage. Unremarkable CTA. No evidence of active extravasation. Moderate fecal retention. --S/P 2 units PRBCs Appreciate GI input Hemoglobin stable Continue MiraLAX daily as recommended by GI Needs follow-up with GI as outpatient IV heparin >>>Transitioned to Lovenox Continue Coumadin Hb 9.8; INR:1.2 today No recurrence of bleeding after restarting anticoagulation If patient has recurrence of bleeding, was advised to be transferred to tertiary care facility Continue 5 mg Coumadin today (Patient states having atleast 1 month supply of Lovenox at home from prior hospitalization) Hypertension: Continue metoprolol Hyperlipidemia: On statin. DVT Px: Lovenox, Coumadin CODE STATUS Full Code Admission and Anticipated Discharge Date Admission Date: October 24, 2021 Subjective Patient is seen and examined at bedside Denies any recurrence of bleeding Eager to get discharged Denies any chest pain, shortness of breath, dizziness, nausea, abdominal pain Offers no other complaints Review of Systems Review of Systems: All systems reviewed & are unremarkable except as noted in Subjective Physical Exam Physical Exam: Physical Exam: Vitals signs as noted above General Appearance:Moderately built and nourished, no apparent distress Head: normocephalic, Atraumatic Eyes: normal inspection, EOMI Neck: supple, Trachea midline Respiratory/Chest: Normal breath sounds, CTA, No accessory muscle use Cardiovascular: S1, S2, No murmur Abdomen/GI:Soft, Non tender, Bowel sounds present Extremities/Musculoskeletal:normal inspection, no edema Neurologic/Psych:AAOX3, grossly no focal neurological deficits Skin: normal color, warm Results & Data Results & Data ([facility]) Vital Signs (Past 12 Hours) Vital Signs Temp Pulse Pulse Pulse Resp BP BP 10/28/21 11:18 36.9 C 66 18 100/65 10/28/21 07:32 36.8 C 71 18 106/68 10/28/21 07:09 65 10/28/21 03:11 36.8 C 70 18 98/55 L Pulse Ox O2 Del Method 10/28/21 11:18 97 Room Air 10/28/21 07:32 96 10/28/21 07:09 10/28/21 03:11 96 Room Air Laboratory Results Short CBC 10/28/21 Range/Units 07:22 WBC 4.78 L (4.8-10.8) K/ul Hgb 9.8 L (12.0-16.0) g/dl Hct 29.8 L (34.1-44.9) % Plt Count 356 (130-400) K/uL BMP 10/28/21 07:22 Sodium 140 Potassium 3.8 Chloride 109 H Carbon Dioxide 27 BUN 9 Creatinine 0.54 L Glucose 100 H Calcium 9.0 Liver Function 10/28/21 Range/Units 07:22 Total Bilirubin 0.5 (0.2-1.0) mg/dl AST 16 (13-39) U/L ALT 21 (7-52) U/L Alkaline Phosphatase 63 (34-104) U/L Albumin 3.4 (3.4-5.0) gm/dl
--- NOTE | 2021-10-28 13:21 | Discharge Summary ---
Date of Service October 28, 2021 Admission HPI Per Admitting Provider DATE OF ADMISSION: 10/24/2021. CHIEF COMPLAINT: Abnormal labs and anemia. HISTORY OF PRESENT ILLNESS: This is a 66-year-old female with past medical history significant for mechanical aortic valve replacement for bicuspid aortic valve, and on Coumadin and aspirin; history of hypertension; history of thrombocytopenia; history of hypercalcemia. The patient underwent a colonoscopy with removal of polyps recently and had subsequent bleeding. She was life- flighted from [facility] to [facility] and had 11 units of blood transfusion and interventional radiology embolizing the bleeding vessel. This happened about 2 weeks ago. The patient says she was discharged from [place] on 10/12/2021. Since then, she was doing okay. A couple of days ago, on 10/21/2021, she had some bloody bowel movement with some blood clots. She saw the family doctor today and outpatient labs showed hemoglobin of 6.8 and she was advised to come to the hospital. After the one episode of bloody bowel movement on 10/21/2021, she had another bowel movement, which was normal. Denies any abdominal pain. Normal bowel and bladder movements. No chest pain, no shortness of breath, no cough, no fevers, no headache, no blurred visions, no earache, no runny nose, no sore throat, no dizziness. Currently, resting comfortably and hemodynamically stable. ER contacted the GI substation engineer and was advised to transfer to [place], but [place] wanted to do CTA abdomen and pelvis and there was no extravasation, so they advised to keep the patient here and declined for transfer at this time and the patient also wanted to stay in the hospital. Her INR is 2.3. ER discussed with Dr. Patterson advised for 1 mg of IV vitamin K, which was given in the ER. ER also transfused 2 units of PRBCs. The patient is getting second unit of PRBCs right now. Hemodynamically stable. Admission Exam Per Admitting Provider PHYSICAL EXAMINATION: GENERAL: The patient is of moderate build, not in acute distress. VITAL SIGNS: Temperature 37.1, pulse 72, respiratory rate 16, blood pressure 122/66, oxygen 99% on room air. HEENT: Pupils equal, round, and reactive to light. Oral mucosa moist. NECK: No JVD. No neck masses. CARDIOVASCULAR: S1 and S2 heard. mechanical sound heard in aortic area. RESPIRATORY SYSTEM: Normal AP diameter. No accessory muscle use. No wheezing or crackles. ABDOMEN: Soft, bowel sounds present, nontender, no distention. CENTRAL NERVOUS SYSTEM: Cranial nerves II through XII are grossly intact, nonfocal. EXTREMITIES: No edema, no erythema. Principal Diagnosis Lower gastrointestinal bleeding Acute blood loss anemia Discharge Data Allergies Allergy/AdvReac Type Severity Reaction Status Date / Time Sulfa (Sulfonamide Allergy Unknown Verified 10/23/21 20:57 Antibiotics) Consultations 10/23/21 23:00 ED Decision to Admit Stat 10/25/21 08:00 Consult Gastroenterology Routine 10/25/21 08:59 Consult Cardiology Routine Procedures Performed Operation Date: 10/24/21 07:10 <No data on this case meets the specified criteria> Ordered Studies 10/23/21 20:10 CT angio abdomen pelvis w con Stat Laboratory Results WBC 4.78 K/ul (4.8-10.8) L 10/28/21 07:22 RBC 3.29 M/uL (3.93-5.22) L 10/28/21 07:22 Hgb 9.8 g/dl (12.0-16.0) L 10/28/21 07:22 POC Hgb 6.8 g/dl (12.0-16.0) L* 10/23/21 19:07 Hct 29.8 % (34.1-44.9) L 10/28/21 07:22 POC Hct 20 % (37-47) L* 10/23/21 19:07 MCV 90.6 fL (80.0-100.0) 10/28/21 07:22 MCH 29.8 pg (25.0-34.0) 10/28/21 07:22 MCHC 32.9 g/dL (32.0-36.0) 10/28/21 07:22 RDW Std Deviation 52.9 fL (36.4-46.3) H 10/28/21 07:22 RDW Coeff of Kristy 15.9 % (11.5-14.5) H 10/28/21 07:22 Plt Count 356 K/uL (130-400) 10/28/21 07:22 MPV 9.2 fL (9.4-12.3) L 10/28/21 07:22 Immature Gran % (Auto) 0.6 % 10/28/21 07: Neut % (Auto) 59.3 % 10/28/21 07:22 Lymph % (Auto) 26.6 % 10/28/21 07:22 [place] % (Auto) 9.4 % 10/28/21 07:22 Eos % (Auto) 3.1 % 10/28/21 07:22 Baso % (Auto) 1.0 % 10/28/21 07: Neut # (Auto) 2.83 K/uL (1.4-6.5) 10/28/21 07:22 Lymph # (Auto) 1.27 K/uL (1.2-3.4) 10/28/21 07:22 [place] # (Auto) 0.45 K/uL (0.24-0.82) 10/28/21 07:22 Eos # (Auto) 0.15 K/uL (0-0.50) 10/28/21 07: Baso # (Auto) 0.05 K/uL (0-0.2) 10/28/21 07: Immature Gran # (Auto) 0.03 K/uL (0.00-0.02) H 10/28/21 07:22 Polychromasia 1+ 10/23/21 19:02 Anisocytosis Present 10/23/21 19:02 PT 12.7 Seconds (9.0-12.0) H 10/28/21 07:22 INR 1.2 (0.9-1.1) H 10/28/21 07:22 APTT 52.4 Seconds (21.0-31.0) H* 10/28/21 07:22 PTT Ratio 1.9 10/28/21 07:22 POC Sodium 138 mmol/L (135-144) 10/23/21 19:07 Sodium 140 mmol/L (136-145) 10/28/21 07:22 POC Potassium 3.8 mmol/L (3.3-5.0) 10/23/21 19:07 Potassium 3.8 mmol/L (3.5-5.1) 10/28/21 07:22 POC Chloride 103 mmol/L (101-112) 10/23/21 19:07 Chloride 109 mmol/L (98-107) H 10/28/21 07:22 Carbon Dioxide 27 mmol/L (21-32) 10/28/21 07:22 POC Total CO2 25 mmol/L (24-31) 10/23/21 19:07 Anion Gap 4 (3-11) 10/28/21 07:22 POC Anion Gap 14.0 mmol/L (16-25) L 10/23/21 19:07 POC BUN 10 mg/dl (7-18) 10/23/21 19:07 BUN 9 mg/dl (6-23) 10/28/21 07:22 Creatinine 0.54 mg/dl (0.6-1.2) L 10/28/21 07:22 POC Creatinine 0.6 mg/dl (0.6-1.3) 10/23/21 19:07 Est Cr Clr Drug Dosing 103.7 ml/min 10/28/21 07:22 Est GFR ( Amer) 115.6 ml/min 10/28/21 07:22 Est GFR (Non-Af Amer) 99.7 ml/min 10/28/21 07:22 BUN/Creatinine Ratio 16.7 (10-20) 10/28/21 07:22 Glucose 100 mg/dl (70-99(Fasting)) H 10/28/21 07:22 POC Glucose (other) 108 mg/dl (70-99) H 10/23/21 19:07 Calcium 9.0 mg/dl (8.5-10.1) 10/28/21 07:22 POC Ioniz Calcium Emy 1.15 mmol/l (1.12-1.32) 10/23/21 19:07 Magnesium 1.9 mg/dl (1.7-2.4) 10/24/21 04:42 Total Bilirubin 0.5 mg/dl (0.2-1.0) 10/28/21 07:22 AST 16 U/L (13-39) 10/28/21 07:22 ALT 21 U/L (7-52) 10/28/21 07:22 Alkaline Phosphatase 63 U/L (34-104) 10/28/21 07:22 Total Protein 5.7 gm/dl (6.0-8.3) L 10/28/21 07:22 Albumin 3.4 gm/dl (3.4-5.0) 10/28/21 07:22 Globulin 2.3 gm/dl (2.5-4.0) L 10/28/21 07:22 Albumin/Globulin Ratio 1.5 (0.9-2) 10/28/21 07:22 TSH 2.975 uIu/ml (0.300-4.500) 10/23/21 19:07 Urine Color Yellow 10/24/21 00:47 Urine Appearance Clear (Clear) 10/24/21 00:47 Urine pH 6.0 (4.5-7.5) 10/24/21 00:47 Ur Specific [place] 1.006 (1.000-1.030) 10/24/21 00:47 Urine Protein Negative (Negative) 10/24/21 00:47 Urine Glucose (UA) Negative (Negative) 10/24/21 00:47 Urine Ketones Negative (Negative) 10/24/21 00:47 Urine Blood Negative (Negative) 10/24/21 00:47 Urine Nitrite Negative (Negative) 10/24/21 00:47 Urine Bilirubin Negative (Negative) 10/24/21 00:47 Urine Urobilinogen Negative (Negative) 10/24/21 00:47 Ur Leukocyte Esterase Negative (Negative) 10/24/21 00:47 SARS-CoV-2, RNA, NAAT NEGATIVE (NEGATIVE) 10/24/21 00:47 Blood Type B Positive 10/23/21 19:02 Antibody Screen NEGATIVE 10/23/21 19:02 Crossmatch See Detail 10/23/21 19:02 Impressions Chest X-Ray 10/23/21 18:56 XR chest 1V portable HISTORY: 66 years-old Female weakness acute weakness COMPARISON: Chest radiograph 10/07/2021. TECHNIQUE: Portable AP view of the chest FINDINGS: Cardiac silhouette is enlarged. Prior median sternotomy. No pneumothorax, pleural effusion, airspace consolidation or overt pulmonary edema. Degenerative changes of the shoulders and spine. Sigmoidal thoracolumbar scoliosis. IMPRESSION: No acute process. ACT 112: Negative or not required by law. The above report was generated using voice recognition software. It may contain grammatical, syntax or spelling errors. Electronically signed by: Tanmay Solano M.D. 10/23/2021 7:34 PM Abdomen/Pelvis CTA 10/23/21 20:10 CT angio abdomen pelvis w con CLINICAL HISTORY: 66 years-old Female with GI Bleed s/p colonoscopy, extravasation acute GI bleed after colonoscopy. Recent colonoscopy with polyp removal and subsequent bleeding. COMPARISON STUDY: KUB 10/07/2021 TECHNIQUE: Following the IV administration of 115 cc of Optiray, CT angiogram of the abdomen and pelvis was performed from the lung bases the proximal femora. Images are reviewed in the axial, sagittal, and coronal planes. 3-D MIPS images are created and assessed. All measurements were obtained according to NASCET criteria. IV contrast was administered without complication. A dose lowering technique was utilized adhering to the principles of ALARA. CT DOSE: 307.17 mGy.cm FINDINGS: CT ABDOMEN/PELVIS: Cardiomegaly. Prior median sternotomy. Prosthetic aortic valve. Mild subsegmental bibasilar atelectasis. No pneumatosis or pneumoperitoneum. The spleen, pancreas and adrenal glands are unremarkable. Cholelithiasis with equivocal wall thickening of the gallbladder. Unremarkable liver. Symmetric enhancement of the kidneys without hydronephrosis. Urinary bladder wall thickening with partial distention. Unremarkable uterus and adnexa. The postmenopausal endometrium measures within the upper limits of normal. No lymphadenopathy. No bowel obstruction. Biopsy clips of the descending colon. Moderate fecal retention. Embolization coils are noted along the mid aspect of the ascending colon. There is moderate focal wall thickening with mucosal hyperemia and pericolonic stranding of the colon adjacent to the coils with mild luminal narrowing. The appendix is not diagnostically visualized. No CT evidence of acute appendicitis. Unremarkable soft tissues. There is no acute fracture. Degenerative changes of the spine, pelvis and hips. Lumbar levoscoliosis. CTA: No significant atherosclerosis. The abdominal aorta, iliac and imaged femoral arteries are patent. The celiac trunk, superior and inferior mesenteric and renal arteries are patent. No active extravasation identified involving the colon at the site of embolization. IMPRESSION: 1. Surgical clips of the colon are noted. Additionally, there are embolization coils adjacent to the mid transverse colon. Adjacent to the coils, there is focal circumferential wall thickening with mucosal hyperemia and pericolonic stranding involving the ascending colon resulting in mild luminal narrowing without obstruction. Findings are suggestive of a nonspecific colitis or could be secondary to the reported recent colonic hemorrhage. 2. Unremarkable CTA. No evidence of active extravasation. 3. Moderate fecal retention. 4. Additional findings as above. ACT 112: Negative or not required by law. The above report was generated using voice recognition software. It may contain grammatical, syntax or spelling errors. Electronically signed by: Tanmay Solano M.D. 10/23/2021 9:22 PM Hospital Course (1) Lower GI bleed: (2) H/O mechanical aortic valve replacement: (3) Anemia: Plan Patient is a 66 yr female with H/O AVR s/p mechanical prosthesis ( [employer] [place] Mechanical valve and bovine pericardial root enlargement), hypertension, recent colonoscopy with post-polypectomy syndrome requiring transfer to [place] for IR embolization ( Discharged on 10/12 with Hb of 8.7) presented with episode of bloody bowel movement with blood clot 3 days prior to the admission. She presented with hemoglobin of 7. She was transfused 2 units of packed RBC. CT angio abdomen was done which did not show active bleeding. Post Polypectomy Lower GI bleed likely secondary to Ischemic Colitis Acute blood loss anemia Mechanical aortic valve on warfarin S/P vitamin K --ABD CTA:Surgical clips of the colon are noted. Additionally, there are embolization coils adjacent to the mid transverse colon. Adjacent to the coils, there is focal circumferential wall thickening with mucosal hyperemia and pericolonic stranding involving the ascending colon resulting in mild luminal narrowing without obstruction. Findings are suggestive of a nonspecific colitis or could be secondary to the reported recent colonic hemorrhage. Unremarkable CTA. No evidence of active extravasation. Moderate fecal retention. --S/P 2 units PRBCs Appreciate GI input Hemoglobin stable Continue MiraLAX daily as recommended by GI Needs follow-up with GI as outpatient IV heparin >>>Transitioned to Lovenox Continue Coumadin Hb 9.8; INR:1.2 today No recurrence of bleeding after restarting anticoagulation If patient has recurrence of bleeding, was advised to be transferred to tertiary care facility Continue 5 mg Coumadin today (Patient states having atleast 1 month supply of Lovenox at home from prior hospitalization) Hypertension: Continue metoprolol Hyperlipidemia: On statin. DVT Px: Lovenox, Coumadin CODE STATUS Full Code Total Time Total Time Spent Total Time Spent (In Minutes): 45 minutes Discharge Plan Discharge Items Patient Disposition: Home - Self-Care Reason For Visit: ABNORMAL LABS Discharge Diagnosis: Lower gastrointestinal bleeding Acute blood loss anemia Activity: Per Instructions section Exercise/Sports: Wait until after follow-up appointment Non-emergency contact: Primary Care Provider, Hydraulic Bull Riveter Operator and Treasury Agent Call non-emergency contact if: you have any medication questions, your pain is concerning for you and you have a fever Follow-up/Referrals: Ramakrishna Correa PA-C [Primary Care Provider] - 11/02/21 10:30 am Diet: Heart Healthy Addtl Attending Provider Instructions: Follow-up with your primary care physician Ramakrishna Correa PA-C on November 02, 2021 at 10:30 AM as scheduled Follow-up with your panel instrument repairer in 2-3 weeks Follow-up with your interface analyst Dr. Ferreira recommended --Discuss with you physician regarding Monitoring your PT/INR and adjustment of Coumadin dosing as advised. --Your PT/INR on 10/28/21 is 1.2. Take Coumadin 5 mg today --Obtain blood test ( PT/INR) Tomorrow: 10/29/21 and follow up with your physician for further adjustment of Coumadin dosing. -- Continue Lovenox 70 mg SQ twice a day until your INR is therapeutic between 2.5-3.5 as recommended by your interface analyst. (Please discuss with your physician for further instructions) -- Taking MiraLAX daily as recommended by your panel instrument repairer. Seek immediate medical attention if your symptoms reoccur or worsen Please take all medications as instructed on discharge list below. Please call if you have any questions or problems. You can reach a [facility] hospitalist on duty at [facility] 24 hours a day by calling [phone] Pending Studies at Discharge: No Stand-Alone Forms: My [facility], Smoking Cessation Medications and DC Order Prescriptions: New polyethylene glycol 3350 [Miralax] 17 gram Powder In Packet 17 g PO DAILY Qty: 30 0RF Continued aspirin [Adult Low Dose Aspirin] 81 mg tablet,delayed release (DR/EC) 81 mg PO DAILY warfarin 2.5 mg tablet 2.5 mg PO Q2D warfarin 5 mg tablet 5 mg PO Q2D rosuvastatin 20 mg tablet 20 mg PO DAILY metoprolol tartrate 25 mg tablet 12.5 mg PO BID multivitamin Tablet 1 tab PO DAILY cholecalciferol (vitamin D3) [Vitamin D3] 50 mcg (2,000 unit) Tablet 2,000 unit PO DAILY Changed enoxaparin 80 mg/0.8 mL syringe 70 mg subcut AMHS Qty: 1 0RF Discharge Orders: Discharge Order (Routine); Ordered 10/28/21 Ordered By: Lawrence Fabian Admission Data Admit Date/Time: 10/24/21 00:43 Attending Provider: Lawrence Fabian Admit Provider: Chintan Frederick Primary Care Provider: Ramakrishna Correa Other Providers: Chintan Frederick ; Godwin Nickerson ; Obed Sweeney
[2021-10-28] MEDS: WARFARIN SOD 5 MG TAB PO SCH (16:16)
== END 2021-10-28 16:41 | disposition home or self-care (01) | DRG 394 ==
LOC: ED 17:55 → EDINP 10-24 00:43 → SUATTDRO 10-24 00:43 → 2W 10-24 03:28
DX: Z79.82 Long term (current) use of aspirin; K55.9 Vascular disorder of intestine, unspecified; D62 Acute posthemorrhagic anemia; Z98.890 Other specified postprocedural states; I10 Essential (primary) hypertension; Z88.2 Allergy status to sulfonamides; K92.2 Gastrointestinal hemorrhage, unspecified; Z79.01 Long term (current) use of anticoagulants; E78.5 Hyperlipidemia, unspecified; Z95.2 Presence of prosthetic heart valve